=== PATIENT | male | born 1965 | race Caucasian/White ===

== ENCOUNTER → 2018-01-30 09:13 | Outpatient (CLI) | payer OTHER, SELFPAY ==
--- NOTE | 2018-01-30 09:17 | US_ITS ---
US gallbladder HISTORY: Abdominal pain, nausea vomiting and diarrhea ITS.REASON: abd pain ORDERING PHYSICIAN: Carlos Alberto Regalado MD PATIENT AGE: 52 years Comparison: None FINDINGS: PANCREAS: Unremarkable. No obvious mass or abnormal fluid collection. No ductal dilatation LIVER: No focal liver lesions demonstrated. Homogeneous echogenicity. No intrahepatic biliary ductal dilatation evident. Fatty liver RIGHT KIDNEY: Unremarkable. Normal size and echogenicity. No hydronephrosis GALLBLADDER: There are multiple gallstones. No gallbladder wall thickening, pericholecystic fluid, or biliary dilatation. IMPRESSION: 1. Cholelithiasis. 2. Fatty liver
== END ==
PROVIDERS: Family Provider Family Medicine; PCP Family Medicine; Visit Provider Surgery
DX: R10.11 Right upper quadrant pain (principal); K80.20 Calculus of gallbladder without cholecystitis without obstruction
CPT/HCPCS: 76705

== ENCOUNTER → 2018-02-14 11:15 | Outpatient (CLI) | payer OTHER, SELFPAY ==
[2018-02-14 11:26] LABS: Basophils % 0.5 % (0.1-2.0); Eosinophils # 0.2 K/mm3 (0.0-0.4); Eosinophils % 2.1 % (0.1-12.0); Hematocrit 48.4 % (42.0-52.0); Lymphocytes # 1.8 K/mm3 (0.7-4.5); Lymphocytes % 22.5 K/mm3 (10-50); Mean Corpuscular HGB Conc 33.1 g/dL (31.8-35.4); Mean Corpuscular Hemoglobin 29.5 pg (27.0-31.2); Mean Corpuscular Volume 89.3 fl (80-94); Mean Platelet Volume 7.6 fl (7.4-10.4); Monocytes # 0.5 K/mm3 (0.1-1.0); Monocytes % 6.3 % (1.7-9.3); Neutrophils # 5.5 K/mm3 (1.8-7.8); Neutrophils % 68.6 % (37.0-80.0); Platelet Count 208 K/mm3 (142-424); Red Blood Count 5.42 M/mm3 (4.60-6.20); Red Cell Distribution Width 13.2 % (11.5-17.5)
[2018-02-14 12:41] LABS: Alanine Aminotransferase 48 U/L (12-78); Albumin Level 4.4 gm/dL (3.4-5.0); Albumin/Globulin Ratio 1.3 (1.1-1.8); Alkaline Phosphatase 72 U/L (46-116); Anion Gap 13.2 mEq/L (5-15); Aspartate Amino Transferase 17 U/L (15-37); Bilirubin,Total 0.9 mg/dL (0.2-1.0); Blood Urea Nitrogen 20 mg/dL (7-18); Calcium 9.4 mg/dL (8.5-10.1); Carbon Dioxide 30 mmol/L (21.0-32.0); Chloride 106 mmol/L (98-107); Creatinine,Serum 0.81 mg/dL (0.70-1.30); Estimated Glomerular Filt Rate 100 ml/min (>60); GFR (African American) 121 ML/MIN (>60); Globulin 3.4 gm/dl (1.3-3.2); Glucose 130 mg/dL (74-106); Potassium 4.2 mmoL/L (3.5-5.1); Sodium 145 mmol/L (136-145); Total Protein,Serum 7.8 gm/dL (6.4-8.2)
== END ==
PROVIDERS: Family Provider Family Medicine; PCP Family Medicine; Visit Provider Surgery
DX: Z01.818 Encounter for other preprocedural examination (principal); K82.9 Disease of gallbladder, unspecified
CPT/HCPCS: 36415; 80053; 85025

== ENCOUNTER → 2018-03-27 12:52 | Outpatient (CLI) | payer OTHER, SELFPAY | PROVIDERS: PCP Family Medicine; Visit Provider Internal Medicine Cardiovascular Disease | DX: G47.33 Obstructive sleep apnea (adult) (pediatric) (principal); G47.9 Sleep disorder, unspecified; R40.0 Somnolence | CPT/HCPCS: 95806 ==

== ENCOUNTER → 2018-04-02 06:10 | Outpatient (CLI) | payer OTHER, SELFPAY ==
--- NOTE | 2018-04-02 06:12 | NM_ITS ---
History and Indications: Hypertension, diabetes, hyperlipidemia, family history, chest pain, shortness of breath and fatigue Procedure: Patient received a 0.4 mg of Lexiscan, resting heart rate was 74 bpm resting blood pressure 135/75, with Lexiscan maximum heart rate achieved was 1 28 bpm which is less than 85% of the maximum predicted heart rate and a blood pressure was 122/74. With Lexiscan patient complained of shortness of breath and nausea. Electrocardiogram: Resting electrocardiogram showed atrial flutter, with Lexiscan there is less than 1.[address] segment depression noted from the baseline EKG. The EKG portion of the Lexiscan Myoview is nondiagnostic. Cardiac stress and resting SPECT images: Cardiac stress and rest SPECT images were obtained using technetium 99 Myoview 32.6 mCi at stress and 10.4 mCi at rest, gated SPECT further analysis of segmental wall motion and calculation of the ejection fraction also done. Cardiac stress and rest SPECT images show a mild fixed defect involving the inferior and posterobasal wall with normal contractility in the gated SPECT is likely secondary to soft tissue attenuation, no reversible ischemia seen. Computer derived ejection fraction is 42% with no regional wall motion abnormality, however during this study patient was in atrial flutter which may underestimate the ejection fraction by gated SPECT. Conclusion: 1. The EKG portion of the Lexiscan Myoview is nondiagnostic. 2. No obvious scintigraphic evidence of reversible ischemia seen, computer derived ejection fraction is 42% with no regional wall motion abnormality, however during this study patient was in atrial flutter which may underestimate the ejection fraction by gated SPECT.
--- NOTE | 2018-04-02 06:12 | CA_ITS ---
PROCEDURE: 2-D M-mode and color Doppler study INDICATIONS FOR THE TEST: Chest pain + COPD Heart Murmur Tobacco Smoking Palpitations+ Fatigue+ Syncope Edema Hypertension+Diabetes Mellitus+ Rheumatic Fever SOB+CURRY Obesity Hyperlipidemia+ Family History HD Additional History a flutter, [place], abn ekg PATIENT INFORMATION HEIGHT: 79 WEIGHT:348 GENDER: Male B/P:130/83 2-D/M-MODE INTERPRETATION: 2-D MEASUREMENTS OBSERVED VALUES IN CMS Right Ventricular Dimension (RVDd) 2.3 Interventricular Septum (Thickness)(IVsd) 1.2 Left Ventricular Internal Dimensions(LVIDd) 4.6 Left Ventricular Posterior Wall (Thickness)(LVPWd) 1.0 Aortic Root 3.4 Aortic Cusp Separation 2.0 Left Atrial Dimensions (LAD) 4.4 2D 1. Technically very difficult study because of the patient's factor and poor acoustic windows, repeat study with Definity contrast is recommended. 2. The left atrium is mildly enlarged, left ventricle is normal size, there is mild concentric left ventricular hypertrophy, probably visually estimated ejection fraction of approximately 45%, there appears to be inferobasal and posterobasal wall hypokinesis, repeat study with Definity contrast is recommended. 3. The right atrium and right ventricle are relatively normal size and function. 4. The aortic valve is minimally thickened and fibrosed. 5. The mitral and tricuspid valve leaflets are minimally thickened. 6. No significant pericardial effusion noted. DOPPLER INTERROGATION: Doppler interrogation of the aortic, mitral and tricuspid valvular presence of mild mitral and tricuspid regurgitation, tricuspid regurgitation jet velocity insufficient for calculation of the right ventricular systolic pressure, diastolic parameters are inconclusive. CONCLUSION: 1. Technically very difficult study because of the patient's factor and poor acoustic windows repeat study with definitely contrast is recommended. 2. Normal left ventricular size, mild concentric left ventricular hypertrophy, visually estimated ejection fraction is probably 45% with segmental wall motion abnormality described above, repeat study with Definity contrast is recommended, diastolic parameters are inconclusive. 3. Mild mitral and tricuspid regurgitation 4. No significant pericardial effusion noted.
--- NOTE | 2018-04-02 07:14 | HMH.ITSHM ---
MONTELUKAST OMEPRAZOLE AMLODIPINE GLYXAMBI ELIQUIS LOSARTAN METFORMIN NABUMETONE WELCHOL ZINC BISOPROLOL SUPER B COMPLEX
== END ==
PROVIDERS: Family Provider Family Medicine; PCP Family Medicine; Visit Provider Internal Medicine Cardiovascular Disease
DX: R07.9 Chest pain, unspecified (principal); R06.09 Other forms of dyspnea; R00.2 Palpitations
CPT/HCPCS: 78452; 93017; 93306; A9502; J2785

== ENCOUNTER → 2018-05-05 19:32 | Outpatient (CLI) | payer OTHER, SELFPAY | PROVIDERS: PCP Family Medicine; Visit Provider Internal Medicine Cardiovascular Disease | DX: G47.33 Obstructive sleep apnea (adult) (pediatric) (principal); G47.10 Hypersomnia, unspecified; R06.83 Snoring; I10 Essential (primary) hypertension | CPT/HCPCS: 95810 ==

== ENCOUNTER → 2019-07-23 11:41 | Outpatient (CLI) | payer OTHER, SELFPAY ==
--- NOTE | 2019-07-23 11:48 | XR_ITS ---
PROCEDURE: XR CHEST 2V CLINICAL HISTORY: dyspnea COMPARISON: No exams were available for comparison FINDINGS: There is mild cardiomegaly without failure. There has been a prior median sternotomy with atrial appendage clipping. No lobar consolidation or collapse is evident. There is a small pleural effusion which may be on the right. No acute bony anomaly. IMPRESSION: Postsurgical changes with small right pleural effusion and mild cardiomegaly Dictated by: Sandip Lin MD 07/23/2019 12:09 Electronically signed by Sandip Lin MD in [place] 07/23/2019 12:09
== END ==
PROVIDERS: PCP Family Medicine; Visit Provider Nurse Practitioner Family
DX: R06.09 Other forms of dyspnea (principal); Z95.1 Presence of aortocoronary bypass graft
CPT/HCPCS: 71046

== ENCOUNTER → 2019-08-20 11:48 | Outpatient (CLI) | payer OTHER, SELFPAY ==
[2019-08-20 12:22] LABS: Basophils # 0.1 K/mm3 (0-0.2); Basophils % 0.7 % (0.1-2.0); Eosinophils # 0.4 K/mm3 (0.0-0.4); Eosinophils % 5.3 % (0.1-12.0); Hematocrit 45.2 % (42.0-52.0); Hemoglobin 14.6 g/dL (14.1-18.0); Lymphocytes # 1.6 K/mm3 (0.7-4.5); Lymphocytes % 22.5 % (10-50); Mean Corpuscular HGB Conc 32.3 g/dL (31.8-35.4); Mean Corpuscular Hemoglobin 28.3 pg (27.0-31.2); Mean Corpuscular Volume 87.7 fl (80-94); Mean Platelet Volume 8.2 fl (7.4-10.4); Monocytes # 0.5 K/mm3 (0.1-1.0); Monocytes % 6.6 % (1.7-9.3); Neutrophils # 4.5 K/mm3 (1.8-7.8); Neutrophils % 64.9 % (37.0-80.0); Platelet Count 312 K/mm3 (142-424); Red Blood Count 5.15 M/mm3 (4.60-6.20); Red Cell Distribution Width 13.1 % (11.5-17.5)
[2019-08-20 16:17] LABS: Alanine Aminotransferase 29 U/L (12-78); Albumin Level 3.9 gm/dL (3.4-5.0); Alkaline Phosphatase 86 U/L (46-116); Aspartate Amino Transferase 15 U/L (15-37); Bilirubin,Direct 0.2 mg/dL (0.0-0.2); Bilirubin,Indirect 0.8 mg/dL (0.0-0.9); Blood Urea Nitrogen 17 mg/dL (7-18); Carbon Dioxide 29 mmol/L (21.0-32.0); Chloride 102 mmol/L (98-107); Chol/HDL Ratio 4.9 (1-3.5); Cholesterol 162 mg/dL (140-200); Creatinine,Serum 0.85 mg/dL (0.70-1.30); Estimated Glomerular Filt Rate 94 ml/min (>60); GFR (African American) 114 ML/MIN (>60); Glucose 131 mg/dL (74-106); HDL Cholesterol 33 mg/dL (27-67); LDL Cholesterol 91 mg/dL (0-130); Sodium 143 mmol/L (136-145); Total Protein,Serum 7.2 gm/dL (6.4-8.2); Triglycerides 192 mg/dL (30-200); VLDL Cholesterol 38 mg/dL (0-40)
== END ==
PROVIDERS: Visit Provider Internal Medicine Cardiovascular Disease
DX: E11.9 Type 2 diabetes mellitus without complications (principal); E78.5 Hyperlipidemia, unspecified; I10 Essential (primary) hypertension; I25.10 Atherosclerotic heart disease of native coronary artery without angina pectoris; I48.91 Unspecified atrial fibrillation; R06.00 Dyspnea, unspecified; R60.9 Edema, unspecified; R94.31 Abnormal electrocardiogram [ECG] [EKG]; G47.33 Obstructive sleep apnea (adult) (pediatric); Z79.01 Long term (current) use of anticoagulants; Z95.1 Presence of aortocoronary bypass graft; Z98.890 Other specified postprocedural states; Z99.89 Dependence on other enabling machines and devices; Z79.84 Long term (current) use of oral hypoglycemic drugs
CPT/HCPCS: 36415; 80048; 80061; 80076; 85025

== ENCOUNTER → 2019-08-25 15:10 | Outpatient (CLI) | payer OTHER, SELFPAY ==
--- NOTE | 2019-08-25 15:12 | CA_ITS ---
APPROVED REPORT EXAM: Comprehensive 2D, Doppler, and color-flow Echocardiogram Training And Development Rep: Martine Tolbert RDCS Ht: 5 ft 7 in Wt: 331lbs BSA: 2.50 BP: 151/111 mmHg Indications: Atrial Flutter, Hyperlipidemia, Hypertension/HDD, CABG M-Mode Dimensions RVDd 3.22 cm (0.9-2.6) LVDd 5.96 cm (3.5-5.7) LVDs 4.87 cm (3.5-5.7) IVSd 0.81 cm (0.6-1.1) PWd 0.77 cm (0.6-1.1) EF (Teich) 37.30% FS 18.30% EDV (Teich) 177.30 mL ESV (Teich) 111.20 mL Left Ventricle Technically very difficult study, endocardial surfaces are very poorly visualized, repeat study with Definity contrast is recommended. Left atrium is mildly enlarged, left ventricle is normal size, mild concentric left ventricular hypertrophy, there is abnormal septal motion, visually estimated ejection fraction approximately 45 to 50% . This study is suboptimal for assessment of segmental wall motion. Diastolic parameters are inconclusive. Right Ventricle Right atrium and right ventricle mildly enlarged with normal contractility. Aortic Valve Aortic valve is minimally thickened and fibrosed, there is no aortic stenosis or aortic insufficiency. Mitral Valve Mitral valve is grossly normal, there is mild mitral regurgitation. Tricuspid Valve Tricuspid valve is grossly normal, there is mild tricuspid regurgitation. Pulmonic Valve Pulmonic valve is poorly visualized. Great Vessels Aortic root is normal size. Pericardium No significant pericardial effusion noted. Conclusion 1. Mildly enlarged left atrium, normal left ventricular size, mild concentric left ventricular hypertrophy, visually estimated ejection fraction 45 to 50%, there is abnormal septal motion, repeat study with Definity contrast is recommended. Diastolic parameters are inconclusive. 2. Mildly enlarged right ventricle with normal contractility. 3. Mild mitral and tricuspid regurgitation. 4. No significant pericardial effusion noted. Electronically signed by : Derrick Humphries, 08/26/2019 07:14:24
== END ==
PROVIDERS: PCP Family Medicine; Visit Provider Internal Medicine Cardiovascular Disease
DX: I48.91 Unspecified atrial fibrillation (principal); I10 Essential (primary) hypertension; E78.5 Hyperlipidemia, unspecified; I25.10 Atherosclerotic heart disease of native coronary artery without angina pectoris; R06.00 Dyspnea, unspecified; G47.33 Obstructive sleep apnea (adult) (pediatric); Z86.79 Personal history of other diseases of the circulatory system; Z95.1 Presence of aortocoronary bypass graft; Z98.890 Other specified postprocedural states; Z99.89 Dependence on other enabling machines and devices
CPT/HCPCS: 93306

== ENCOUNTER → 2019-08-27 10:45 | Outpatient (CLI) | payer OTHER, SELFPAY | PROVIDERS: PCP Family Medicine; Visit Provider Internal Medicine Cardiovascular Disease | DX: I48.0 Paroxysmal atrial fibrillation (principal); R00.2 Palpitations; R06.09 Other forms of dyspnea; E78.2 Mixed hyperlipidemia; E11.65 Type 2 diabetes mellitus with hyperglycemia; I10 Essential (primary) hypertension; Z99.89 Dependence on other enabling machines and devices | CPT/HCPCS: 93225 ==

== ENCOUNTER → 2019-09-11 15:45 | Outpatient (CLI) | payer OTHER, SELFPAY | PROVIDERS: Visit Provider Nurse Practitioner Family | DX: R19.7 Diarrhea, unspecified (principal) | CPT/HCPCS: 87045; 87177; 87493 ==

== ENCOUNTER → 2019-09-18 11:49 | Outpatient (CLI) | payer OTHER, SELFPAY ==
[2019-09-18 14:42] LABS: Alanine Aminotransferase 23 U/L (12-78); Albumin Level 4.6 g/dl (3.5-5.0); Albumin/Globulin Ratio 1.5 (1.1-1.8); Alkaline Phosphatase 88 U/L (38-126); Anion Gap 14.3 mEq/L (5-15); Aspartate Amino Transferase 25 U/L (17-59); Blood Urea Nitrogen 25 mg/dl (9-20); Calcium 9.9 mg/dl (8.4-10.2); Carbon Dioxide 29 mmol/L (22.0-30.0); Chloride 100 mmol/L (98-107); Chol/HDL Ratio 6.4 (1-3.5); Cholesterol 229 mg/dl (140-200); Estimated Glomerular Filt Rate 118 ml/min (>60); GFR (African American) 143 ML/MIN (>60); Globulin 3.1 g/dL (1.3-3.2); Glucose 131 mg/dl (74-100); HDL Cholesterol 36 mg/dl (40-60); Potassium 4.3 mmoL/L (3.5-5.1); Sodium 139 mmol/L (136-145); Total Protein,Serum 7.7 g/dl (6.3-8.2); Triglycerides 236 mg/dl (30-150); VLDL Cholesterol 47 mg/dL (0-40)
[2019-09-18 14:53] LABS: Direct LDL Cholesterol 183.54 mg/dL (100-129)
[2019-09-18 15:13] LABS: Thyroid Stimulating Hormone 0.67 uIU/mL (0.465-4.68)
[2019-09-19 11:34] LABS: Microalbumin, Urine 51.5 ug/mL (Not Estab.)
== END ==
PROVIDERS: PCP Family Medicine; Visit Provider Internal Medicine Cardiovascular Disease
DX: E78.2 Mixed hyperlipidemia (principal); E11.65 Type 2 diabetes mellitus with hyperglycemia; Z79.84 Long term (current) use of oral hypoglycemic drugs
CPT/HCPCS: 36415; 80053; 80061; 82043; 84443

== ENCOUNTER 2019-10-20 12:49 | Outpatient (RCR) | payer OTHER, SELFPAY | END 2020-01-04 13:34 | disposition home or self-care (01) | LOC: PT 12:49 | PROVIDERS: Visit Provider Internal Medicine Cardiovascular Disease | DX: I48.0 Paroxysmal atrial fibrillation (principal); I25.5 Ischemic cardiomyopathy; I25.10 Atherosclerotic heart disease of native coronary artery without angina pectoris; R06.09 Other forms of dyspnea; Z95.1 Presence of aortocoronary bypass graft; Z99.89 Dependence on other enabling machines and devices | CPT/HCPCS: 93798 ==

== ENCOUNTER → 2019-12-11 10:27 | Outpatient (CLI) | payer OTHER, SELFPAY ==
[2019-12-11 11:44] LABS: Chloride 102 mmol/L (98-107); Potassium 4.8 mmoL/L (3.5-5.1); Sodium 140 mmol/L (136-145)
[2019-12-11 11:46] LABS: Bilirubin,Unconjugated 0.7 mg/dL (0.0-1.1); Blood Urea Nitrogen 22 mg/dl (9-20); Estimated Glomerular Filt Rate 101 ml/min (>60); GFR (African American) 122 ML/MIN (>60)
[2019-12-11 11:47] LABS: Alanine Aminotransferase 26 U/L (12-78); Albumin Level 4.5 g/dl (3.5-5.0); Alkaline Phosphatase 91 U/L (38-126); Anion Gap 12.8 mEq/L (5-15); Aspartate Amino Transferase 26 U/L (17-59); Bilirubin,Direct 0.3 mg/dl (0.0-0.4); Bilirubin,Indirect 0.7 mg/dL (0.0-0.9); Calcium 9.6 mg/dl (8.4-10.2); Carbon Dioxide 30 mmol/L (22.0-30.0); Chol/HDL Ratio 3.4 (1-3.5); Cholesterol 123 mg/dl (140-200); Glucose 195 mg/dl (74-100); HDL Cholesterol 36 mg/dl (40-60); Total Protein,Serum 7.5 g/dl (6.3-8.2); Triglycerides 200 mg/dl (30-150); VLDL Cholesterol 40 mg/dL (0-40)
[2019-12-11 11:58] LABS: Direct LDL Cholesterol 82.61 mg/dL (100-129)
== END ==
PROVIDERS: Visit Provider Internal Medicine Cardiovascular Disease
DX: R07.89 Other chest pain (principal); R06.00 Dyspnea, unspecified; I42.9 Cardiomyopathy, unspecified; I25.10 Atherosclerotic heart disease of native coronary artery without angina pectoris; E11.9 Type 2 diabetes mellitus without complications; E78.5 Hyperlipidemia, unspecified; I10 Essential (primary) hypertension; I48.91 Unspecified atrial fibrillation; G47.33 Obstructive sleep apnea (adult) (pediatric); Z86.79 Personal history of other diseases of the circulatory system; Z95.1 Presence of aortocoronary bypass graft; Z98.890 Other specified postprocedural states; Z99.89 Dependence on other enabling machines and devices; Z79.84 Long term (current) use of oral hypoglycemic drugs
CPT/HCPCS: 36415; 80048; 80061; 80076

== ENCOUNTER → 2020-06-27 06:56 | Outpatient (CLI) | payer OTHER, SELFPAY ==
--- NOTE | 2020-06-27 | CA_ITS ---
APPROVED REPORT Exam: Pharmacologic Technologist: Crissy Allison Ht: 5 ft 9 in Wt: 349 lbs BSA: 2.62 m2 HR: 68 bpm BP: 147/71 mmHg Indications: Chest pain Medical History Medications: Omeprazole,,,,, Furosemide (LASIX),,,,, Aspirin,,,,, Metformin,,,,, Losartan,,,,, Nabumetone,,,,, Carvedilol,,,,, Montelukast,,,,, SpirOnolactone,,,,, Vitamin B Complex,,,,, Evolocumab,,,,, EMpagliflozin-Linagliptin,,,,, Stress Test Details Test: LEXISCAN HR Resting HR: 83 bpm Max Heart Rate (APMHR): 166 bpm Max HR Achieved: 98 bpm Target HR (85% APMHR): 141 bpm % of APMHR: 59 Recovery HR: 81 bpm BP Resting BP: 147.0/71.0 mmHg Max BP: 157.0/58.0 mmHg Recovery BP: 143.0/74.0 mmHg ECG Clinical Reason for Termination: Completed Protocol Exercise duration: 04:00 min Highest Stage Achieved: Stress ECG Conclusion Resting EKG: Normal sinus rhythm Symptoms: None Arrhythmias/Ectopy: None ST-T Changes: < 1.[address] segment changes Conclusion: Non-daignostic stress test. Patient received the infusion per protocol without chest pain, ST segment changes or arrhythmias. See the nuclear report for further information. Electronically signed by : Derrick Humphries, 06/28/2020 06:20:20
--- NOTE | 2020-06-27 06:57 | NM_ITS ---
APPROVED REPORT Exam: Nuclear Stress Test Indication: Chest pain, SOB, Fatigue, HTN, CAD, CABG, DM, High cholesterol, Family history Patient Location: Outpatient Stress Tech: Crissy Allison ND Tech:Lianne Agrawal, ARRT, RT (R)(N) Ht: 6 ft 7 in Wt: 340 lbs HR: 68 bpm BP: 147/71 mmHg BSA: 2.86 m2 BMI: 38.2 History: Chest pain, SOB, Fatigue, HTN, CAD, CABG, DM, High cholesterol, Family history Procedure: Patient received a 0.4 mg of intravenous Lexiscan, resting heart rate 68 bpm, resting blood pressure 147/71 mmHg, with Lexiscan maximum heart rate achived was 82 bpm which is Less than 85 % of the maximum predicted heart rate and blood pressure was 138/70 mmHg. With Lexiscan, patient denied any complaint of chest pain. Electrocardiogram Resting electrocardiogram showed sinus rhythm nonspecific ST-T changes, with Lexiscan there is less than 1.[address] segment depression noted from the baseline EKG. The EKG portion of the Lexiscan Myoview is nondiagnostic. Cardiac Stress and Resting SPECT Images: Cardiac Stress and Resting SPECT images were obtained using technetium 99m Myoview 30.0 mCi stress and 10.51 mCi at rest. Gated SPECT for analysis of segmental wall motion and calculation of the ejection fraction also done. Cardiac stress and resting SPECT images show uniform myocardial activity without segmental perfusion abnormality, computer derived ejection fraction 50% with no regional wall motion abnormality, right ventricle is normal size and contractility. Conclusion: 1. The EKG portion of the Lexiscan is nondiagnostic. 2. No scintigraphic evidence of reversible ischemia seen, computer derived ejection fraction 50% with no regional wall motion abnormality, right ventricle is normal size and contractility. 3. Normal Lexiscan Myoview study. Electronically signed by : Derrick Humphries, 06/28/2020 06:33:20
--- NOTE | 2020-06-27 09:38 | HMH.ITSHM ---
Current Home Medications as stated by this patient Massimo Garces or product support representative. []MONTELUKAST OMEPRAZOLE METFORMIN SPRIONOLACTONE NABUMETONE FUROSEMIDE VITAMIN B GLYXAMBI LOSARTAN CARVEDILOL
== END ==
PROVIDERS: PCP Family Medicine; Visit Provider Urology
DX: R07.89 Other chest pain (principal); I25.10 Atherosclerotic heart disease of native coronary artery without angina pectoris; I10 Essential (primary) hypertension; E11.9 Type 2 diabetes mellitus without complications; E78.2 Mixed hyperlipidemia; G47.33 Obstructive sleep apnea (adult) (pediatric); I25.5 Ischemic cardiomyopathy; I48.0 Paroxysmal atrial fibrillation; R06.09 Other forms of dyspnea; Z86.79 Personal history of other diseases of the circulatory system; Z95.1 Presence of aortocoronary bypass graft; Z98.890 Other specified postprocedural states; Z99.89 Dependence on other enabling machines and devices
CPT/HCPCS: 78452; 93017; A9502; J2785

== ENCOUNTER → 2020-12-15 11:28 | Outpatient (CLI) | payer OTHER, SELFPAY | PROVIDERS: PCP Family Medicine; Visit Provider Physician Assistant | DX: R55 Syncope and collapse (principal); I48.0 Paroxysmal atrial fibrillation; R00.0 Tachycardia, unspecified | CPT/HCPCS: 93270 ==

== ENCOUNTER → 2020-12-29 10:02 | Outpatient (CLI) | payer OTHER, SELFPAY ==
[2020-12-29 10:38] LABS: Basophils % 0.5 % (0.1-2.0); Eosinophils # 0.2 K/mm3 (0.0-0.4); Eosinophils % 2.3 % (0.1-12.0); Hematocrit 46.2 % (42.0-52.0); Hemoglobin 15.3 g/dL (14.1-18.0); Lymphocytes # 1.6 K/mm3 (0.7-4.5); Lymphocytes % 21.2 % (10-50); Mean Corpuscular HGB Conc 33.1 g/dL (31.8-35.4); Mean Corpuscular Hemoglobin 27.9 pg (27.0-31.2); Mean Corpuscular Volume 84.3 fl (80-94); Mean Platelet Volume 8.5 fl (7.4-10.4); Monocytes # 0.5 K/mm3 (0.1-1.0); Monocytes % 6.6 % (1.7-9.3); Neutrophils # 5.1 K/mm3 (1.8-7.8); Neutrophils % 69.4 % (37.0-80.0); Platelet Count 239 K/mm3 (142-424); Red Blood Count 5.48 M/mm3 (4.60-6.20); Red Cell Distribution Width 14.1 % (11.5-17.5); White Blood Count 7.4 K/mm3 (4.8-10.8)
[2020-12-29 10:56] LABS: Chloride 104 mmol/L (98-107); Potassium 4.6 mmoL/L (3.5-5.1); Sodium 140 mmol/L (136-145)
[2020-12-29 10:59] LABS: Anion Gap 14.6 mEq/L (5-15); Blood Urea Nitrogen 16 mg/dl (9-20); Carbon Dioxide 26 mmol/L (22.0-30.0); Estimated Glomerular Filt Rate 117 ml/min (>60); GFR (African American) 142 ML/MIN (>60)
[2020-12-29 11:00] LABS: Calcium 9.3 mg/dl (8.4-10.2); Glucose 152 mg/dl (74-100)
== END ==
PROVIDERS: Visit Provider Physician Assistant
DX: Z01.812 Encounter for preprocedural laboratory examination (principal); Z20.822 Contact with and (suspected) exposure to COVID-19; R55 Syncope and collapse; Z95.1 Presence of aortocoronary bypass graft
CPT/HCPCS: 36415; 80048; 85025; U0003

== ENCOUNTER 2020-12-30 07:16 | Day surgery (SDC) | payer OTHER, SELFPAY ==
[2020-12-30] VITALS (17 sets, daily range): BP systolic 128–162; BP diastolic 72–93; PULSE 58–74; RESP 16–20; O2SAT 93–99; BMI 38.2
--- NOTE | 2020-12-30 07:01 | IR_ITS ---
APPROVED REPORT Patient Location: Outpatient Neon Sign Worker: OLU Boswell RT (R) PROCEDURES Left heart catheterization Left ventriculogram Selective coronary angiogram Selective engagement of left internal mammary artery with angiography Selective engagement of the right internal mammary artery with angiography Catheter placed in the ascending aorta Ascending aortography INDICATION Coronary disease, History of coronary bypass surgery, Accelerated angina pectoris, Informed consent was obtained prior to the procedure. COMPLICATIONS None Estimated Blood Loss: Less than 10 mls TECHNIQUE One percent lidocaine used to anesthetize the right groin. The right femoral artery was accessed via the Seldinger technique and a 5 Maori sheath was placed in the right femoral artery. A JL 4, JR4 multipurpose catheter were used to perform left heart catheterization, left ventriculogram selective coronary angiography as well as selective engagement of the bilateral internal mammary arteries. The catheter was then placed in the ascending aorta and contrast was injected to determine if any vein grafts originated from the ascending aorta.. At the end the procedure the patient was transferred to postop coronary stable addition for sheath removal ANGIOGRAPHIC RESULTS The left main artery Is widely patent and distally tapers to 30% stenosis The left anterior descending artery Has an ostial severe stenosis and then proximally occluded after a small first diagonal artery network The circumflex artery Is a dominant vessel and gives rise to a large ramus intermedius which has an ostial 30% stenosis. The circumflex artery itself has an ostial 30% to 40% stenosis with remaining vessel widely patent The right coronary artery Small nondominant subtotally occluded The [place] ventriculogram reveals Dilated ventricle with ejection fraction of 50% The left ventricular end-diastolic pressure 15 mmHg The left internal mammary artery is widely patent to the LAD The right internal mammary artery is widely patent to the chest wall The ascending aorta does not demonstrate any saphenous vein graft sites IMPRESSION Coronary disease as described above Widely patent POLO to the LAD Dilated ventricle with ejection fraction 50% Mildly elevated LVEDP PLAN 1. Continue medical management 2. Maximize antianginal medications 3. The distal left main artery has trifurcating vessels which includes the LAD the circumflex artery and the ramus intermedius. There is significant size mismatch between the [place] left main artery and the 2.5 mm nature of both the ramus and the circumflex artery. Stenting the ostial ramus and circumflex artery would create significant mismatch within the left main artery. Although the LAD is subtotally occluded there still is significant mismatch based on the anatomical orientation of the 3 vessels which would make double barreling of the ramus intermedius and the circumflex artery very difficult as the stents would not match the [place] left main artery. I strongly recommend medical management in this gentleman 4. Evaluation of noncardiac symptomatology such as possible pulmonary embolism or possible GI etiologies 5. Aggressive risk factor modification Electronically signed by : Roni Wood, 12/30/2020 10:27:50
--- NOTE | 2020-12-30 07:19 | CA_ITS ---
APPROVED REPORT Hospital Nurse: PHILIPPE Laterality: Bilateral Indications: syncope, dizziness Risk Factors Hypertension: Hyperlipidemia Diabetes CAD, Hx CABG, AFIB Doppler Spectral Velocity Analysis ECA (R) 100.30/11.20 cm/s ECA (L) 133.70/18.00 cm/s dICA (R) 59.10/18.00 cm/s dICA (L) 89.10/33.40 cm/s Yudy (R) 86.50/22.30 cm/s Yudy (L) 87.40/29.10 cm/s pICA (R) 126.20/33.10 cm/s pICA (L) 114.80/33.40 cm/s dCCA (R) 104.80/23.20 cm/s dCCA (L) 110.50/24.00 cm/s pCCA (R) 112.20/23.10 cm/s pCCA (L) 149.90/25.70 cm/s Vert (R) 45.60/8.30 cm/s Vert (L) 61.70/20.60 cm/s ICA/CCA 1.20 ICA/CCA 1.04 Findings Duplex evaluation demonstrates stenosis of the left proximal internal carotid artery <20% with PSV <140 cm/sec, EDV <100 cm/sec, and IC/CC Ratio <4.0. Duplex evaluation demonstrates stenosis of the right proximal internal carotid artery in the range of 20-49% with PSV <140 cm/sec, EDV <100 cm/sec, and IC/CC Ratio <4.0. Conclusion Duplex evaluation demonstrates stenosis of the left proximal internal carotid artery <20% with PSV <140 cm/sec, EDV <100 cm/sec, and IC/CC Ratio <4.0. Duplex evaluation demonstrates stenosis of the right proximal internal carotid artery in the range of 20-49% with PSV <140 cm/sec, EDV <100 cm/sec, and IC/CC Ratio <4.0. Electronically signed by : Sandip Lin MD 12/30/2020 15:06:21
== END 2020-12-30 13:32 | disposition home or self-care (01) ==
LOC: CATHLAB 07:16
PROVIDERS: PCP Family Medicine; Visit Provider Internal Medicine
DX: I48.0 Paroxysmal atrial fibrillation (principal); E11.65 Type 2 diabetes mellitus with hyperglycemia; R55 Syncope and collapse; Z95.1 Presence of aortocoronary bypass graft; R42 Dizziness and giddiness; Z79.84 Long term (current) use of oral hypoglycemic drugs; I25.118 Atherosclerotic heart disease of native coronary artery with other forms of angina pectoris; Z88.0 Allergy status to penicillin; Z88.8 Allergy status to other drugs, medicaments and biological substances; Z79.899 Other long term (current) drug therapy; I10 Essential (primary) hypertension; K21.9 Gastro-esophageal reflux disease without esophagitis; E78.5 Hyperlipidemia, unspecified
CPT/HCPCS: 93459; 93880; 99152; C1725; C1769; C1894; J1644; Q9967

== ENCOUNTER 2021-01-30 10:29 | Emergency (ER) | payer OTHER, SELFPAY ==
--- NOTE | 2021-01-30 10:26 | ECG_ITS ---
APPROVED REPORT Exam: Resting ECG HR:61 bpm ECG Measurements Heart Rate 61 AXES WV 176 P 75 QRSd 102 QRS 26 QT 418 T 48 QTc 420 Conclusion Normal sinus rhythm Normal ECG Electronically signed by : Zack Rees, 02/01/2021 21:41:53
[2021-01-30 10:30] VITALS: BP 167/85; PULSE 67; RESP 16; TEMP 36.7; O2SAT 97; BMI 38.8
--- NOTE | 2021-01-30 10:35 | HMH.EDCP ---
ED Disposition Clinical Impression: Atypical chest pain, Hyperglycemia due to diabetes mellitus Chest wall contusion Qualifiers: Encounter type: initial encounter Laterality: left Qualified Code(s): S20.212A - Contusion of left front wall of thorax, initial encounter Chest pain Qualifiers: Chest pain type: unspecified Qualified Code(s): R07.9 - Chest pain, unspecified Disposition: Home, Self-Care Condition on Discharge: Good Instructions: DI for Atypical Chest Pain Additional Instructions: Please follow-up with your assisted living director within 1 week. Return to the emergency department if your symptoms worsen. Follow-up with your primary care physician within the next 2 weeks. Your blood glucose was somewhat elevated today. However, it was not high enough to require emergent lowering in the emergency department. Referrals: Lela Sánchez MD [Primary Care Provider] - - Critical Care Critical Care Time: No Attestation: On , the high probability of a clinically significant, sudden or life threatening deterioration of the following system(s) required my full and direct attention, intervention and personal management. The time I documented below is in addition to time spent performing reported procedures but includes the following listed in this critical care notation. Medical Decision Making - Medical Records Medical records reviewed: Yes: I reviewed the patient's medical records. - Bernardo Inquiry Pt receiving controlled substance: No Vital Signs: 01/30/21 10:30 01/30/21 11:19 01/30/21 11:31 Temperature 98.1 F Temperature Source Oral Pulse Rate 57 L 56 L Pulse Rate [Right] 67 Respiratory Rate 16 11 L Blood Pressure 114/61 131/69 Blood Pressure [Right Arm] 167/85 H Blood Pressure Mean 89 Blood Pressure Mean [Right Arm] 112 02 Sat by Pulse Oximetry 97 95 94 L - Lab Data Lab results reviewed: Yes: I reviewed the patient's lab results. Lab Results 01/30/21 10:38: WBC 7.0, RBC 5.44, Hgb 15.2, Hct 44.9, MCV 82.5, MCH 27.8, MCHC 33.8, RDW 14.4, Plt Count 204, MPV 8.0, Neut % (Auto) 67.9, Lymph % (Auto) 21.9, Citrus % (Auto) 6.3, Eos % (Auto) 2.9, Baso % (Auto) 0.9, Neut # (Auto) 4.7, Lymph # (Auto) 1.5, Citrus # (Auto) 0.4, Eos # (Auto) 0.2, Baso # (Auto) 0.1 01/30/21 10:38: Sodium 138, Potassium 4.4, Chloride 102, Carbon Dioxide 27, Anion Gap 13.4, BUN 19, Creatinine 0.60 L, Estimated Creat Clear 308 H, Estimated GFR 140, Est GFR ( Amer) 169, Glucose 272 H, Calcium 8.8, Troponin I < 0.01 Result diagrams: 01/30/21 10:38 01/30/21 10:38 Orders (Tests/Meds): ORDERS Category Date Time Status Troponin I Q3H Lab 01/30/21 13:45 Ordered Troponin I Q3H Lab 01/30/21 16:45 Ordered - Radiology Data #1 Image(s): Chest Image Reviewed: Yes I reviewed the patient's radiology results, Yes I reviewed the patient's radiology image, Yes I have reviewed radiologist's interpretation Preliminary Findings: Normal/NAD - ECG Data Tracing #1 I reviewed this ECG and interpreted as documented below: 1:27 AM on January 30. it shows a normal sinus rhythm with a ventricular rate of 61 bpm, normal axis, normal intervals, no evidence of acute ischemia. Normal Sinus Rhythm: Yes Medical Decision Narrative: The patient presents to the emergency department complaining of left-sided chest pain that has been ongoing for approximately 1 week. It has been constant and waxing and waning. The patient does have a history of coronary artery disease and has had coronary artery bypass graft in the past. The patient's work-up in the emergency department did not reveal any life-threatening or dangerous causes for the patient's chest pain. His troponin is undetectable. His EKG does not show any acute ischemic changes. His chest x-ray is unremarkable. The pain is reproducible with palpation and tensing of the left chest wall muscles. I feel that the patient can be safely discharged home with instructions to follow-
--- NOTE | 2021-01-30 10:38 | XR_ITS ---
PROCEDURE: XR CHEST PORTABLE CLINICAL HISTORY: CHEST PAIN/ SOA COMPARISON: CR CXR CHEST(2 VIEWS-NOT PORTABLE) from 04/23/2016 CR CXR2V XR chest 2V from 10/04/[address] angio chest from 10/04/2018 DX XR CHEST 2V from 07/23/2019 FINDINGS: There has been a prior CABG. There is borderline cardiomegaly without failure. Prior left atrial appendage clipping. There is lordotic positioning. No lobar consolidation or collapse is evident. No acute bony abnormalities. IMPRESSION: No acute findings. Dictated by: Sandip Lin MD 01/30/2021 11:34 Sandip Lin MD in [place] 01/30/2021 11:34
[2021-01-30 10:52] LABS: Basophils # 0.1 K/mm3 (0-0.2); Basophils % 0.9 % (0.1-2.0); Eosinophils # 0.2 K/mm3 (0.0-0.4); Eosinophils % 2.9 % (0.1-12.0); Hematocrit 44.9 % (42.0-52.0); Hemoglobin 15.2 g/dL (14.1-18.0); Lymphocytes # 1.5 K/mm3 (0.7-4.5); Lymphocytes % 21.9 % (10-50); Mean Corpuscular HGB Conc 33.8 g/dL (31.8-35.4); Mean Corpuscular Hemoglobin 27.8 pg (27.0-31.2); Mean Corpuscular Volume 82.5 fl (80-94); Monocytes # 0.4 K/mm3 (0.1-1.0); Monocytes % 6.3 % (1.7-9.3); Neutrophils # 4.7 K/mm3 (1.8-7.8); Neutrophils % 67.9 % (37.0-80.0); Platelet Count 204 K/mm3 (142-424); Red Blood Count 5.44 M/mm3 (4.60-6.20); Red Cell Distribution Width 14.4 % (11.5-17.5)
[2021-01-30 10:57] LABS: Anion Gap 13.4 mEq/L (5-15); Blood Urea Nitrogen 19 mg/dl (9-20); Calcium 8.8 mg/dl (8.4-10.2); Carbon Dioxide 27 mmol/L (22.0-30.0); Chloride 102 mmol/L (98-107); Creatinine Clearance Estimated 308 mL/min (50-200); Estimated Glomerular Filt Rate 140 ml/min (>60); GFR (African American) 169 ML/MIN (>60); Glucose 272 mg/dl (74-100); Potassium 4.4 mmoL/L (3.5-5.1); Sodium 138 mmol/L (136-145)
[2021-01-30 11:09] LABS: Troponin I < 0.01 ng/ml (0.00-0.034)
[2021-01-30 11:19] VITALS: BP 114/61; PULSE 57; RESP 11; O2SAT 95
[2021-01-30 11:31] VITALS: BP 131/69; PULSE 56; O2SAT 94
[2021-01-30 12:00] VITALS: BP 125/67; PULSE 61; RESP 18; TEMP 36.8; O2SAT 97
== END 2021-01-30 12:22 | disposition home or self-care (01) ==
PROVIDERS: Emergency Provider Emergency Medicine; PCP Family Medicine
DX: S20.212A Contusion of left front wall of thorax, initial encounter (principal); E11.65 Type 2 diabetes mellitus with hyperglycemia; I25.10 Atherosclerotic heart disease of native coronary artery without angina pectoris; W22.01XA Walked into wall, initial encounter; Y92.019 Unspecified place in single-family (private) house as the place of occurrence of the external cause; R07.89 Other chest pain; K21.9 Gastro-esophageal reflux disease without esophagitis; E78.5 Hyperlipidemia, unspecified; I10 Essential (primary) hypertension; Z87.442 Personal history of urinary calculi; Z87.891 Personal history of nicotine dependence; Z79.899 Other long term (current) drug therapy
CPT/HCPCS: 71045; 80048; 84484; 85025; 93005; 99202; 99283; G0463

== ENCOUNTER → 2021-03-22 09:59 | Outpatient (CLI) | payer OTHER, SELFPAY ==
[2021-03-22 18:15] LABS: Adenovirus F 40/41, stool Not Detected (NotDetected); Astrovirus Not Detected (NotDetected); Campylobacter Not Detected (NotDetected); Clostridium Difficile A/B, PCR Not Detected (NotDetected); Cryptosporidium Not Detected (NotDetected); Cyclospora Cayetanesis Not Detected (NotDetected); Entamoeba histolytica Not Detected (NotDetected); Enteroaggregative E coli Not Detected (NotDetected); Enteropathogenic E coli Not Detected (NotDetected); Enterotoxigenic E coli Not Detected (NotDetected); Giardia lamblia Not Detected (NotDetected); Norovirus Not Detected (NotDetected); Plesimonas Shigalloides, PCR Not Detected (NotDetected); Rotavirus A Not Detected (NotDetected); Salmonella, PCR Not Detected (NotDetected); Sapovirus Not Detected (NotDetected); Shiga-like toxin E coli Not Detected (NotDetected); Shigella Enterovasive E coli Not Detected (NotDetected); Vibrio Cholerae Not Detected (NotDetected); Vibrio, PCR Not Detected (NotDetected); Yersinia Entercolitica, PCR Not Detected (NotDetected)
== END ==
PROVIDERS: Visit Provider Internal Medicine Gastroenterology
DX: Z01.812 Encounter for preprocedural laboratory examination (principal); Z11.52 Encounter for screening for COVID-19; Z13.810 Encounter for screening for upper gastrointestinal disorder
CPT/HCPCS: 87507; U0003

== ENCOUNTER 2021-03-24 08:49 | Day surgery (SDC) | payer OTHER, SELFPAY ==
[2021-03-21 12:43] VITALS: BMI 37.7
[2021-03-24 09:34] VITALS: BP 122/65; PULSE 59; RESP 18; TEMP 36.5; O2SAT 97
--- NOTE | 2021-03-24 09:38 | P.PN_ITS ---
[facility] Anesthesia Checklist - Patient Identification Patient Identification: Arm Band - Structural Data Admitted From: Home Planned Operative Procedure/s: EGD Consent for Planned Operative Procedure(s) Verified: Yes - NPO Status Verified Time NPO: 00:00 - Additional verifications Anesthesia Reactions: Yes (delayed awakening) Hx Blood Transfusions: No Blood Transfusion Reaction: No - Airway Assessment C-Spine Mobility Assessed: Yes TMJ Mobility Assessed: Yes Dentition: Good Dentition - Neurological Assessment Level of Consciousness: Awake Hx Seizures: No Numbness or tingling in extremities: No - Anesthesia Plan Anesthesia Risk discussed: Yes Anesthesia Plan: Verified ASA Class: III Anesthesia Type: MAC [facility] History I have reviewed the patient's past medical history: Yes Medical History: Reports:: Atherosclerotic Heart Disease, Atrial Fibrillation, Coronary Artery Disease, Diabetes Mellitus Type 2, Gastroesophageal Reflux Disease(GERD), Hyperlipidemia, Hypertension, Kidney Stones, Palpitations Denies:: Cancer, Diabetes Mellitus Type 1, Internal Pacemaker, MRSA, Seizures *Have you ever received a pneumonia vaccine?: Yes *Have you received a flu vaccine this season?: Yes Other Medical History: Reports: Other. Denies: Blood Transfusion Reaction Anesthesia experience/problems:: None Laterality Cases: Right: Other, Bilateral: Arthroscopy Shoulder, Myringotomy (Ear Tubes) Other Surgeries: Yes: CABG, Cardiac Catheterization, Cardiac Surgery, Cholecystectomy, Colonoscopy, Coronary Stent (x2 in heart ), EGD, Sinus Surgery, Other. No: Pacemaker Amputation: No Fractures: No - *Social History Last grade of school completed: 9th or 10th Smoking Status: Never smoker Tobacco Type: cigarettes # Packs/Day (cigarettes): 1 #Yrs smoked (if former smoker): 10 Alcohol Intake: never Alcohol Intake Frequency:: other Substance Use Type: denies use *Occupational Status:: disabled Housing: house Household Members: family *Travel in the last 8 weeks: None Family Hx:: Cancer, Diabetes, Hypertension, Coronary Artery Disease
[2021-03-24 09:53] LABS: POC Glucose,Bedside 260 (70-110)
--- NOTE | 2021-03-24 10:28 | HMH.PROC ---
[facility] Procedure Note Procedure Note:: Upper Endoscopy Procedure Report: Esophagogastroduodenoscopy with cold biopsies and TTS balloon dilation Endoscopost: Sarkis Alberto II, MD Referring Physician: Umu Sánchez M.D./Derrick Humphries MD Date of Procedure: March 24, 2021 Equipment: Olympus GIF 190 standard upper endoscope Sedation: MAC sedation Indications: Mr. Garces is a 55-year-old gentleman with atypical noncardiac chest pain. The patient did have coronary stent placements. He later had cardiac ablation and then CABG (Dr. Reinier [facility]). He reports this is left precordial chest pain and usually occurs when he gets hot. He states that he has never had a myocardial infarction so he does not know what angina feels like. He recently had cardiac evaluation and his stress testing was normal. He did have a normal colonoscopy with Dr. Kieran May 5 years ago. The patient does have some chronic GERD which is well controlled with omeprazole. He does get some intermittent dyspepsia, bloating, belching and nausea. He reports no early satiety. He does have occasional dysphagia. He was having chronic diarrhea over the last couple of years. Metformin was discontinued and his diarrhea rapidly resolved. Procedure: Prior to the procedure, a history and physical exam was performed, and patient's medications and allergies were reviewed. The risks, benefits and alternatives of the sedation and procedure were discussed with the patient. All questions were answered and informed consent was obtained. The patient was brought to the procedure room. Patient identification and proposed procedure were verified by the physician and the nurse. The patient was placed in a left lateral decubitus position and the scope was passed under direct vision. Throughout the procedure, the patient's blood pressure, pulse, and oxygen saturations were monitored continuously. The upper GI endoscopy was accomplished without difficulty. The patient tolerated the procedure well. Findings: The scope was passed directly into the upper esophagus and advanced to the third portion of the duodenum. The post bulbar duodenum and duodenal bulb were normal with normal mucosa and conniventes. The scope was withdrawn through a normal duodenal bulb and pylorus into the stomach. There was marked bile reflux with moderate linear reactive gastropathy of the antrum and body of the stomach (erosive gastropathy). The remainder of the fundus of the stomach was grossly normal. Upon retroflexion there was no hiatal hernia. 2 biopsies were taken in the antrum and along the lesser curvature for histology to rule out gastritis and/or H pylori. The scope was then withdrawn into the esophagus. There was a serrated Z-line. There was no evidence of reflux esophagitis. Biopsies were taken at the GE junction. There were tertiary contractions and evidence of moderate esophageal dysmotility. The entire esophagus was dilated to 60 Gibralt[place]/20 mm with a TTS hydrostatic balloon. The remainder of the esophageal mucosa was normal. Impression: 1. Moderate esophageal dysmotility with nonerosive GERD 2. Bile reflux with moderate linear reactive gastropathy Plan: Certainly there is a possibility that his chest pain is esophageal chest pain from esophageal dyskinesia and functional GERD. We will discuss treatment options. I will follow-up the biopsies.
[2021-03-24 10:30] VITALS: BP 163/88; PULSE 62; RESP 18; TEMP 36.1; O2SAT 94
[2021-03-24 10:40] VITALS: BP 138/87; PULSE 56; RESP 18; O2SAT 98
[2021-03-24 10:50] VITALS: BP 130/72; PULSE 57; RESP 18; O2SAT 98
[2021-03-24 11:15] VITALS: BP 139/86; PULSE 54; RESP 18; O2SAT 96
[2021-03-24 12:21] VITALS: O2SAT 97
== END 2021-03-24 11:18 | disposition home or self-care (01) ==
LOC: OUTP 08:50
PROVIDERS: PCP Family Medicine; Visit Provider Internal Medicine Gastroenterology
PROC: 0DJ08ZZ Inspection of Upper Intestinal Tract, Via Natural or Artificial Opening Endoscopic (ICD-10-PCS; CPT 43235; principal; 2021-03-24 10:00)
DX: Z95.1 Presence of aortocoronary bypass graft (principal); K21.9 Gastro-esophageal reflux disease without esophagitis; K22.4 Dyskinesia of esophagus; K31.9 Disease of stomach and duodenum, unspecified; I25.10 Atherosclerotic heart disease of native coronary artery without angina pectoris; I48.91 Unspecified atrial fibrillation; E11.9 Type 2 diabetes mellitus without complications; E78.5 Hyperlipidemia, unspecified; I10 Essential (primary) hypertension; R00.2 Palpitations; Z87.442 Personal history of urinary calculi; Z80.9 Family history of malignant neoplasm, unspecified
CPT/HCPCS: 43239; 43249; 82962; C1726; J2704

== ENCOUNTER → 2021-06-06 08:58 | Outpatient (CLI) | payer OTHER, SELFPAY | PROVIDERS: PCP Family Medicine; Visit Provider Nurse Practitioner | DX: Z20.822 Contact with and (suspected) exposure to COVID-19 (principal) | CPT/HCPCS: C9803; U0003; U0005 ==

== ENCOUNTER 2021-07-11 17:33 | Emergency (ER) | payer OTHER, SELFPAY ==
[2021-07-11 17:35] VITALS: BP 142/100; PULSE 96; RESP 16; TEMP 37.2; O2SAT 97; BMI 38.7
[2021-07-11 17:59] VITALS: BP 148/90; PULSE 80; RESP 18; O2SAT 98
--- NOTE | 2021-07-11 18:00 | CT_ITS ---
PROCEDURE INFORMATION: Exam: CT Abdomen And Pelvis With Contrast Exam date and time: 07/11/2021 6:00 PM Age: 55 years old Clinical indication: Nausea and vomiting; Additional info: N/v abd pain TECHNIQUE: Imaging protocol: Computed tomography of the abdomen and pelvis with contrast. Radiation optimization: All CT scans at this facility use at least one of these dose optimization techniques: automated exposure control; mA and/or kV adjustment per patient size (includes targeted exams where dose is matched to clinical indication); or iterative reconstruction. Contrast material: ISOVUE; Contrast volume: 75 ml; Contrast route: IV; COMPARISON: ABDPELWO CT abdomen pelvis wo con 01/16/2018 8:39 PM FINDINGS: Liver: Normal. No mass. Gallbladder and bile ducts: Cholecystectomy. Pancreas: Normal. No ductal dilation. Spleen: Normal. No splenomegaly. Adrenal glands: 1 cm left adrenal adenoma unchanged from previous exam in 2018. Kidneys and ureters: Normal. No hydronephrosis. Stomach and bowel: Unremarkable. No obstruction. No mucosal thickening. Appendix: No evidence of appendicitis. Intraperitoneal space: Unremarkable. No free air. No significant fluid collection. Vasculature: Unremarkable. No abdominal aortic aneurysm. Lymph nodes: Unremarkable. No enlarged lymph nodes. Urinary bladder: Unremarkable as visualized. Reproductive: Unremarkable as visualized. Bones/joints: Unremarkable. No acute fracture. Soft tissues: Unremarkable. IMPRESSION: No acute findings.
[2021-07-11 18:11] LABS: Coronavirus 19, PCR Not Detected (NotDetected); Influenza A, PCR Not Detected (NotDetected); Influenza B, PCR Not Detected (NotDetected)
--- NOTE | 2021-07-11 18:16 | HMH.EDGENADL ---
ED Disposition Clinical Impression: Dizziness, Generalized weakness Vomiting Qualifiers: Vomiting type: unspecified Nausea presence: with nausea Qualified Code(s): R11.2 - Nausea with vomiting, unspecified Abdominal pain Qualifiers: Abdominal location: generalized Qualified Code(s): R10.84 - Generalized abdominal pain Disposition: Home, Self-Care Condition on Discharge: Good Instructions: DI for Acute Abdominal Pain, DI for Vomiting -- Adult, DI for Dizziness-Nonvertigo Additional Instructions: Antivert as needed for dizziness. Zofran as needed for nausea and vomiting. Rest and drink plenty of fluids. Call your primary care provider tomorrow for follow-up. Return to the emergency department if worsening. Prescriptions: Meclizine HCl [Antivert 25mg tablet] 25 mg PO TIDP PRN #15 tab PRN Reason: Vertigo Transmission Status: Pending to [facility] Ondansetron [Zofran 4mg ODT] 4 mg PO TIDP PRN #10 tab PRN Reason: Nausea And Vomiting Transmission Status: Pending to [facility] Referrals: Zack Daley MD [Primary Care Provider] - - Critical Care Critical Care Time: No Attestation: On 07/11/21, the high probability of a clinically significant, sudden or life threatening deterioration of the following system(s) required my full and direct attention, intervention and personal management. The time I documented below is in addition to time spent performing reported procedures but includes the following listed in this critical care notation. Medical Decision Making - Bernardo Inquiry Pt receiving controlled substance: No Vital Signs: 07/11/21 17:35 07/11/21 17:59 Temperature 98.9 F Temperature Source Oral Pulse Rate 80 Pulse Rate [Right] 96 H Respiratory Rate 16 18 Blood Pressure 148/90 H Blood Pressure [Right Arm] 142/100 H Blood Pressure Mean [Right Arm] 114 Blood Pressure Source Automatic Cuff Blood Pressure Source [Right Arm] Automatic Cuff Blood Pressure Position Sitting Blood Pressure Position [Right Arm] Sitting 02 Sat by Pulse Oximetry 97 98 Oxygen Delivery Method Room Air Room Air - Lab Data Lab Results 07/11/21 17:50: SARS-CoV-2 (PCR) Not detected, Influenza A Untype (PCR) Not detected, Influenza Type B (PCR) Not detected 07/11/21 18:00: WBC 9.3, RBC 5.97, Hgb 18.3 H, Hct 53.2 H, MCV 89.1, MCH 30.6, MCHC 34.3, RDW 12.9, Plt Count 225, MPV 8.7, Neut % (Auto) 82.4 H, Lymph % (Auto) 8.2 L, [place] % (Auto) 7.2, Eos % (Auto) 1.8, Baso % (Auto) 0.4, Neut # (Auto) 7.7, Lymph # (Auto) 0.8, [place] # (Auto) 0.7, Eos # (Auto) 0.2, Baso # (Auto) 0.0 07/11/21 18:00: Sodium 139, Potassium 4.5, Chloride 99, Carbon Dioxide 27, Anion Gap 17.5 H, BUN 24 H, Creatinine 0.80, Estimated Creat Clear 224, Estimated GFR 100, Est GFR ( Amer) 121, Glucose 266 H, Calcium 9.7, Total Bilirubin 1.5 H, AST 28, ALT 31, Alkaline Phosphatase 94, Troponin I < 0.01, Total Protein 8.2, Albumin 4.7, Globulin 3.5 H, Albumin/Globulin Ratio 1.3, Amylase 88, Lipase 131 Result diagrams: 07/11/21 18:00 07/11/21 18:00 Orders (Tests/Meds): ED MEDICATIONS Generic Name Dose Route Start Last Admin Trade Name Freq PRN Reason Stop Dose Admin Sodium Chloride 1,000 mls @ 999 mls/hr 07/11/21 18:00 07/11/21 18:03 Sod Chlor 0.9% 1000ml Bag IV 07/11/21 19:00 999 mls/hr .Q1H1M JUAN Administration Discontinued Medications Generic Name Dose Route Start Last Admin Trade Name Freq PRN Reason Stop Dose Admin Iopamidol 75 ml 07/11/21 19:03 07/11/21 19:12 Iopamidol-370 (76%);100ml Bottle IV 07/11/21 19:04 75 ml ONCE ONE Administration Meclizine HCl 25 mg 07/11/21 18:23 07/11/21 18:33 Meclizine 25mg Tablet PO 07/11/21 18:24 25 mg ONCE ONE Administration Ondansetron HCl 4 mg 07/11/21 18:00 07/11/21 18:04 Ondansetron 4mg/2ml Vial IV 07/11/21 18:01 4 mg ONCE ONE Administration Sodium Chloride 10 ml 07/11/21 19:04 07/11/21 19:12 Sodium Chloride 0.9% 10ml
[2021-07-11 18:21] LABS: Alanine Aminotransferase 31 U/L (12-78); Albumin Level 4.7 g/dl (3.5-5.0); Albumin/Globulin Ratio 1.3 (1.1-1.8); Alkaline Phosphatase 94 U/L (38-126); Amylase 88 U/L (30-110); Anion Gap 17.5 mEq/L (5-15); Aspartate Amino Transferase 28 U/L (17-59); Bilirubin,Total 1.5 mg/dl (0.2-1.3); Blood Urea Nitrogen 24 mg/dl (9-20); Calcium 9.7 mg/dl (8.4-10.2); Carbon Dioxide 27 mmol/L (22.0-30.0); Chloride 99 mmol/L (98-107); Creatinine Clearance Estimated 224 mL/min (50-200); Estimated Glomerular Filt Rate 100 ml/min (>60); GFR (African American) 121 ML/MIN (>60); Globulin 3.5 g/dL (1.3-3.2); Glucose 266 mg/dl (74-100); Lipase 131 U/L (23-300); Potassium 4.5 mmoL/L (3.5-5.1); Sodium 139 mmol/L (136-145); Total Protein,Serum 8.2 g/dl (6.3-8.2)
--- NOTE | 2021-07-11 18:22 | XR_ITS ---
PROCEDURE INFORMATION: Exam: XR Chest Exam date and time: 07/11/2021 6:22 PM Age: 55 years old Clinical indication: Cough TECHNIQUE: Imaging protocol: XR of the chest. Views: 2 views. COMPARISON: CR XR CHEST PORTABLE 01/30/2021 11:06 AM FINDINGS: Lungs: Unremarkable. No consolidation. Pleural spaces: Unremarkable. No pleural effusion. No pneumothorax. Heart/Mediastinum: Unremarkable. No cardiomegaly. Bones/joints: Midline sternotomy. Prior left atrial appendage clipping. IMPRESSION: No acute findings.
[2021-07-11 18:40] LABS: Troponin I < 0.01 ng/ml (0.00-0.034)
--- NOTE | 2021-07-11 18:50 | ECG_ITS ---
APPROVED REPORT Exam: Resting ECG HR:92 bpm ECG Measurements Heart Rate 92 AXES AL 198 P 68 QRSd 96 QRS 61 QT 382 T 66 QTc 472 Conclusion Normal sinus rhythm Normal ECG Electronically signed by : Zack Rees MD 07/12/2021 20:37:21
[2021-07-11 18:55] LABS: Basophils % 0.4 % (0.1-2.0); Eosinophils # 0.2 K/mm3 (0.0-0.4); Eosinophils % 1.8 % (0.1-12.0); Hematocrit 53.2 % (42.0-52.0); Lymphocytes # 0.8 K/mm3 (0.7-4.5); Lymphocytes % 8.2 % (10-50); Mean Corpuscular HGB Conc 34.3 g/dL (31.8-35.4); Mean Corpuscular Hemoglobin 30.6 pg (27.0-31.2); Mean Corpuscular Volume 89.1 fl (80-94); Mean Platelet Volume 8.7 fl (7.4-10.4); Monocytes # 0.7 K/mm3 (0.1-1.0); Monocytes % 7.2 % (1.7-9.3); Neutrophils # 7.7 K/mm3 (1.8-7.8); Neutrophils % 82.4 % (37.0-80.0); Platelet Count 225 K/mm3 (142-424); Red Blood Count 5.97 M/mm3 (4.60-6.20); Red Cell Distribution Width 12.9 % (11.5-17.5); White Blood Count 9.3 K/mm3 (4.8-10.8)
[2021-07-11 19:05] LABS: Hemoglobin 18.3 g/dL (14.1-18.0)
[2021-07-11 20:26] VITALS: BP 132/61; PULSE 94; RESP 18; TEMP 36.7; O2SAT 98
== END 2021-07-11 20:34 | disposition home or self-care (01) ==
PROVIDERS: Emergency Provider Emergency Medicine; PCP Family Medicine
DX: R11.2 Nausea with vomiting, unspecified (principal); R42 Dizziness and giddiness; R10.84 Generalized abdominal pain; I48.91 Unspecified atrial fibrillation; E11.65 Type 2 diabetes mellitus with hyperglycemia; K21.9 Gastro-esophageal reflux disease without esophagitis; E78.5 Hyperlipidemia, unspecified; Z20.822 Contact with and (suspected) exposure to COVID-19; I10 Essential (primary) hypertension; Z79.899 Other long term (current) drug therapy
CPT/HCPCS: 71046; 74177; 80053; 82150; 83690; 84484; 85025; 93005; 96365; 96375; 99283; C9803; J2405; Q9967; U0003; U0005

== ENCOUNTER → 2021-08-03 09:37 | Outpatient (CLI) | payer OTHER, SELFPAY | PROVIDERS: PCP Family Medicine; Visit Provider Nurse Practitioner | DX: Z20.822 Contact with and (suspected) exposure to COVID-19 (principal) | CPT/HCPCS: C9803; U0003; U0005 ==

== ENCOUNTER → 2021-08-21 12:09 | Outpatient (CLI) | payer OTHER, SELFPAY ==
[2021-08-22 06:43] LABS: Covid-19 Nasal PCR Sendout Lex POSITIVE
== END ==
PROVIDERS: PCP Nurse Practitioner Family; Visit Provider Nurse Practitioner
DX: U07.1 COVID-19 (principal)
CPT/HCPCS: C9803; U0004; U0005

== ENCOUNTER 2021-08-27 19:09 | Emergency (ER) | payer OTHER, SELFPAY ==
[2021-08-27 19:10] VITALS: BP 141/78; PULSE 89; RESP 18; TEMP 37; O2SAT 96; BMI 39.2
--- NOTE | 2021-08-27 20:12 | XR_ITS ---
PROCEDURE INFORMATION: Exam: XR Chest Exam date and time: 08/27/2021 8:12 PM Age: 55 years old Clinical indication: Cough; Prior surgery; Surgery date: 6+ months; Surgery type: Cardiac stents TECHNIQUE: Imaging protocol: XR of the chest. Views: 1 view. COMPARISON: CR XR CHEST 2V 07/11/2021 6:35 PM FINDINGS: Lungs: No consolidation. Pleural spaces: No pneumothorax. Heart/Mediastinum: No cardiomegaly. Bones/joints: Median sternotomy wires. No acute abnormality. IMPRESSION: No acute findings.
--- NOTE | 2021-08-27 20:14 | HMH.EDGENADL ---
ED Disposition Clinical Impression: Nausea vomiting and diarrhea, COVID-19 Disposition: Home, Self-Care Condition on Discharge: Good Instructions: Nausea and Vomiting-Adult, DI for COVID-19 (Suspected or Confirmed ) Additional Instructions: You have been evaluated for nausea, vomiting, diarrhea in the setting of COVID-19. Please try to stay hydrated with water and Gatorade. Take Zofran as needed for nausea and vomiting. Tylenol for aches and pains. Follow-up with your primary care doctor. Return to the emergency department for any new or worsening symptoms. Prescriptions: ondansetron HCL [Ondansetron 4mg tab*] 4 mg PO Q6HP PRN #10 tab PRN Reason: Nausea And Vomiting Transmission Status: Pending to [facility] Referrals: Fiona Ortzi APRN [Primary Care Provider] - Time of Disposition: 22:27 - Critical Care Critical Care Time: No Attestation: On 08/27/21, the high probability of a clinically significant, sudden or life threatening deterioration of the following system(s) required my full and direct attention, intervention and personal management. The time I documented below is in addition to time spent performing reported procedures but includes the following listed in this critical care notation. Medical Decision Making - Medical Records Medical records reviewed: Yes: I reviewed the patient's medical records. - Bernardo Inquiry Pt receiving controlled substance: No Vital Signs: 08/27/21 19:10 Temperature 98.6 F Temperature Source Oral Pulse Rate [Apical] 89 Respiratory Rate 18 Blood Pressure [Right Arm] 141/78 H Blood Pressure Mean [Right Arm] 99 Blood Pressure Source [Right Arm] Automatic Cuff Blood Pressure Position [Right Arm] Sitting 02 Sat by Pulse Oximetry 96 Oxygen Delivery Method Room Air - Lab Data Lab Results 08/27/21 20:00: WBC 5.3, RBC 5.73, Hgb 16.9, Hct 53.4 H, MCV 93.2, MCH 29.4, MCHC 31.6 L, RDW 14.1, Plt Count 207, MPV 8.2, Neut % (Auto) 81.2 H, Lymph % (Auto) 10.4, [place] % (Auto) 4.7, Eos % (Auto) 2.8, Baso % (Auto) 1.0, Neut # (Auto) 4.3, Lymph # (Auto) 0.6 L, [place] # (Auto) 0.3, Eos # (Auto) 0.2, Baso # (Auto) 0.1 08/27/21 20:00: Sodium 139, Potassium 3.8, Chloride 102, Carbon Dioxide 27, Anion Gap 13.8, BUN 21 H, Creatinine 0.80, Estimated Creat Clear 228, Estimated GFR 100, Est GFR ( Amer) 121, Glucose 190 H, Calcium 9.1, Total Bilirubin 1.5 H, AST 23, ALT 23, Alkaline Phosphatase 80, Total Protein 7.3, Albumin 4.5, Globulin 2.8, Albumin/Globulin Ratio 1.6, Lipase 53, Acetone Level Small 08/27/21 20:12: VBG pH 7.35, VBG pCO2 39.1, VBG pO2 52.0 H, VBG HCO3 21.0 L, VBG Total CO2 22.2 L, VBG O2 Saturation 86.1 H, VBG Base Excess -4.6 L Result diagrams: 08/27/21 20:00 08/27/21 20:00 Orders (Tests/Meds): ED MEDICATIONS Generic Name Dose Route Start Last Admin Trade Name Freq PRN Reason Stop Dose Admin Sodium Chloride 1,000 mls @ 999 mls/hr 08/27/21 20:15 08/27/21 20:17 Sod Chlor 0.9% 1000ml Bag IV 08/27/21 21:15 999 mls/hr .Q1H1M JUAN Administration Discontinued Medications Generic Name Dose Route Start Last Admin Trade Name Freq PRN Reason Stop Dose Admin Ondansetron HCl 4 mg 08/27/21 20:13 08/27/21 20:17 Ondansetron 4mg/2ml Vial IV 08/27/21 20:14 4 mg ONCE ONE Administration Medical Decision Narrative: In summary this is a 55yo male with history of DM2 and day 6 of COVID presenting to the emergency department with nausea, vomiting, diarrhea. Patient clinically stable on arrival. VSS. No hypoxia or respiratory difficulty. Concern for dehydration, electrolyte derangement, hyperglyemia, DKA, COVID. My concern for intra-abdominal surgical complication is lower, given that he does not have abdominal pain or tenderness on examination. Will start with CBC, CMP, lipase, VBG, acetone, CXR. Patient given IV fluid bolus and zofran. Laboratory results reassuring. Glucose elevated at 190. Small acetone present. No acidosis on
[2021-08-27 20:22] LABS: Basophils # 0.1 K/mm3 (0-0.2); Eosinophils # 0.2 K/mm3 (0.0-0.4); Eosinophils % 2.8 % (0.1-12.0); Hematocrit 53.4 % (42.0-52.0); Hemoglobin 16.9 g/dL (14.1-18.0); Lymphocytes # 0.6 K/mm3 (0.7-4.5); Lymphocytes % 10.4 % (10-50); Mean Corpuscular HGB Conc 31.6 g/dL (31.8-35.4); Mean Corpuscular Hemoglobin 29.4 pg (27.0-31.2); Mean Corpuscular Volume 93.2 fl (80-94); Mean Platelet Volume 8.2 fl (7.4-10.4); Monocytes # 0.3 K/mm3 (0.1-1.0); Monocytes % 4.7 % (1.7-9.3); Neutrophils # 4.3 K/mm3 (1.8-7.8); Neutrophils % 81.2 % (37.0-80.0); Platelet Count 207 K/mm3 (142-424); Red Blood Count 5.73 M/mm3 (4.60-6.20); Red Cell Distribution Width 14.1 % (11.5-17.5); White Blood Count 5.3 K/mm3 (4.8-10.8)
[2021-08-27 20:33] LABS: Alanine Aminotransferase 23 U/L (12-78); Albumin Level 4.5 g/dl (3.5-5.0); Albumin/Globulin Ratio 1.6 (1.1-1.8); Alkaline Phosphatase 80 U/L (38-126); Anion Gap 13.8 mEq/L (5-15); Aspartate Amino Transferase 23 U/L (17-59); Bilirubin,Total 1.5 mg/dl (0.2-1.3); Blood Urea Nitrogen 21 mg/dl (9-20); Calcium 9.1 mg/dl (8.4-10.2); Carbon Dioxide 27 mmol/L (22.0-30.0); Chloride 102 mmol/L (98-107); Creatinine Clearance Estimated 228 mL/min (50-200); Estimated Glomerular Filt Rate 100 ml/min (>60); GFR (African American) 121 ML/MIN (>60); Globulin 2.8 g/dL (1.3-3.2); Glucose 190 mg/dl (74-100); Lipase 53 U/L (23-300); Potassium 3.8 mmoL/L (3.5-5.1); Sodium 139 mmol/L (136-145); Total Protein,Serum 7.3 g/dl (6.3-8.2)
[2021-08-27 20:54] LABS: Acetone, Serum (Rapid) Small (None Detect)
[2021-08-27 22:36] LABS: VBG Base Excess -4.6 mmol/L (-2.4-2.3); VBG Oxygen Saturation 86.1 % (50-70); VBG PCO2 39.1 mmol/L (35-51); VBG PH 7.35 mmol/L (7.31-7.41); VBG Total CO2 22.2 mmol/L (23-27)
[2021-08-27 23:13] VITALS: BP 111/73; PULSE 84; RESP 18; TEMP 36.9; O2SAT 96
== END 2021-08-27 23:19 | disposition home or self-care (01) ==
PROVIDERS: Emergency Medicine; Emergency Provider Emergency Medicine; PCP Nurse Practitioner Family
DX: R11.2 Nausea with vomiting, unspecified (principal); R19.7 Diarrhea, unspecified; U07.1 COVID-19; I10 Essential (primary) hypertension; E78.5 Hyperlipidemia, unspecified; K21.9 Gastro-esophageal reflux disease without esophagitis; I48.0 Paroxysmal atrial fibrillation; Z79.899 Other long term (current) drug therapy
CPT/HCPCS: 71045; 80053; 82009; 82803; 83690; 85025; 99283; J2405

== ENCOUNTER 2022-01-30 17:58 | Emergency (ER) | payer OTHER, SELFPAY ==
[2022-01-30 18:30] VITALS: BP 137/77; PULSE 73; RESP 17; TEMP 36.7; O2SAT 98; BMI 38.8
--- NOTE | 2022-01-30 18:58 | HMH.EDUTC ---
[facility] Disposition Clinical Impression: Right otitis media Qualifiers: Otitis media type: suppurative Chronicity: acute Recurrence: non-recurrent Spontaneous tympanic membrane rupture: without spontaneous rupture Qualified Code(s): H66.001 - Acute suppurative otitis media without spontaneous rupture of ear drum, right ear Disposition: Home, Self-Care Condition on Discharge: Good Instructions: Middle Ear Infection, Ketorolac Injection Additional Instructions: Drink plenty of fluids. Take tylenol or ibuprofen for pain or fever. Take the medications as directed. Follow up with your regular doctor. GO TO THE ER FOR ANY WORSENING SYMPTOMS Prescriptions: methylPREDNISolone [Medrol] 4 mg PO DIRECTED 6 Days #21 packet Transmission Status: Received by [facility] Neomycin/Polymyxin B Sulf/Hc [Dsvyqtfl-Rzuymrydy-HX Otic Susp 10mL] 3 drops EAR-RIGHT TID 7 Days #1 ml Transmission Status: Received by [facility] Cefdinir [Omnicef 300mg Capsule] 300 mg PO BID #20 cap Transmission Status: [facility] Referrals: Fiona Ortiz APRN [Primary Care Provider] - Time of Disposition: 19:09 Medical Decision Making - Medical Records Medical records reviewed: No: I reviewed the patient's medical records. - Bernardo Inquiry Pt receiving controlled substance: No Vital Signs: 01/30/22 18:30 01/30/22 19:21 Temperature 98.1 F 98.1 F Temperature Source Oral Pulse Rate 73 Pulse Rate [Left] 73 Respiratory Rate 17 17 Blood Pressure 137/77 Blood Pressure [Right Arm] 137/77 Blood Pressure Mean [Right Arm] 97 02 Sat by Pulse Oximetry 98 Orders (Tests/Meds): ED MEDICATIONS Discontinued Medications Generic Name Dose Route Start Last Admin Trade Name Freq PRN Reason Stop Dose Admin Ketorolac Tromethamine 60 mg 01/30/22 19:05 01/30/22 19:12 Ketorolac 60mg/2ml Vial IM 01/30/22 19:06 60 mg ONCE ONE Administration [facility] HPI - General Stated complaint: R ear pain Time Seen by Provider: 01/30/22 18:58 Description of Symptoms (Recalled from Triage Doc. by RN): patient comes in for right ear pain that began a few hours ago HEENT Symptoms (Recalled from RN notes): Yes Resp Symptoms (Recalled from RN notes): No Skin Symptoms (Recalled from RN notes): No MS Symptoms (Recalled from RN notes): No Functional Status (Recalled from RN notes): n/a - History of Present Illness Provider Complaint: He states that since this morning he has had right ear pain. He is not hearing well out of that ear also. He has a t-tube in his left ear. He denies any fever or chills. - Related Data Home Medications Medication Instructions Recorded Confirmed empagliflozin 25 mg-linagliptin 5 1 tab PO DAILY 90 Days #90 12/06/17 12/29/21 mg tablet montelukast 10 mg tablet 10 mg PO DAILY 90 Days #90 12/06/17 12/29/21 omeprazole 40 mg capsule,delayed 40 mg PO DAILY 90 Days #90 12/06/17 12/29/21 release vitamin B comp with C no.4 150 mg 1 tab PO DIRECTED tab 03/21/18 12/29/21 tablet aspirin 81 mg tablet,delayed 81 mg PO DAILY 07/23/19 12/29/21 release nabumetone 750 mg tablet 750 mg PO BID tab 12/11/19 12/29/21 Furosemide [Furosemide 40MG tAB*] 40 mg PO DAILY 12/30/20 12/29/21 Evolocumab [Repatha SureClick] See Rx Instructions .ROUTE .COMPLEX 03/21/21 12/29/21 Famotidine [Acid Bark Spudder] 20 mg PO DAILY 03/21/21 12/29/21 glyburide 5 mg tablet 5 mg PO DAILY tab 05/11/21 12/29/21 semaglutide 1 mg/dose (2 mg/1.5 1 mg SQ WEEKLY 06/30/21 12/29/21 mL) subcutaneous pen injector Previous Rx's Medication Instructions Recorded tadalafil 5 mg tablet 5 mg PO DAILY PRN #10 tab 02/16/21 ranolazine 500 mg tablet,extended 500 mg PO BID #180 tab 05/05/21 release,12 hr spironolactone 25 mg tablet 25 mg PO BID #60 tab 06/02/21 Meclizine HCl [Antivert 25mg 25 mg PO TIDP PRN #15 tab 07/11/21 tablet] Ondansetron [Zofran 4mg ODT] 4 mg PO TIDP PRN #10 tab 07/11/21 on
[2022-01-30 19:21] VITALS: BP 137/77; PULSE 73; RESP 17; TEMP 36.7
== END 2022-01-30 19:22 | disposition home or self-care (01) ==
PROVIDERS: Emergency Provider Nurse Practitioner Family; PCP Nurse Practitioner Family
DX: H66.001 Acute suppurative otitis media without spontaneous rupture of ear drum, right ear (principal); R00.2 Palpitations; R53.81 Other malaise; I10 Essential (primary) hypertension; I25.10 Atherosclerotic heart disease of native coronary artery without angina pectoris; I48.91 Unspecified atrial fibrillation; K21.9 Gastro-esophageal reflux disease without esophagitis; E78.5 Hyperlipidemia, unspecified; Z79.02 Long term (current) use of antithrombotics/antiplatelets; E11.9 Type 2 diabetes mellitus without complications; Z87.898 Personal history of other specified conditions; Z88.0 Allergy status to penicillin; Z88.8 Allergy status to other drugs, medicaments and biological substances; Z91.013 Allergy to seafood; Z95.1 Presence of aortocoronary bypass graft; Z87.442 Personal history of urinary calculi; Z82.49 Family history of ischemic heart disease and other diseases of the circulatory system; Z83.3 Family history of diabetes mellitus; Z80.9 Family history of malignant neoplasm, unspecified
CPT/HCPCS: 96372; 99213; G0463

== ENCOUNTER 2022-02-04 10:45 | Emergency (ER) | payer OTHER, SELFPAY ==
[2022-02-04 10:46] VITALS: BP 117/56; PULSE 80; RESP 16; TEMP 36.6; O2SAT 98; BMI 39.2
[2022-02-04 11:18] VITALS: BP 117/56; PULSE 80; RESP 16; TEMP 36.7; O2SAT 98; BMI 39.2
--- NOTE | 2022-02-04 11:57 | HMH.EDUTC ---
[facility] Disposition Clinical Impression: Right otitis media Qualifiers: Otitis media type: suppurative Chronicity: acute Recurrence: non-recurrent Spontaneous tympanic membrane rupture: without spontaneous rupture Qualified Code(s): H66.001 - Acute suppurative otitis media without spontaneous rupture of ear drum, right ear Conjunctivitis Qualifiers: Conjunctivitis type: unspecified Laterality: bilateral Qualified Code(s): H10.9 - Unspecified conjunctivitis Disposition: Home, Self-Care Condition on Discharge: Good Instructions: How to Instill Ear Drops, How to Instill Eye Drops, Conjunctivitis Additional Instructions: Use the eye drops as directed. Use the ear drops as directed BE VERY CAREFUL ABOUT USING THE EYE DROPS AND THE EAR DROPS CORRECTLY. MAKE ABSOLUTELY SURE YOU DON'T MIX THEM UP. Follow up with your regular doctor. Follow up with an eye doctor. GO TO THE ER FOR ANY WORSENING SYMPTOMS Prescriptions: Neomycin/Polymyxin B Sulf/Hc [Hpzkrztq-Xodykkywi-IZ Otic Susp 10mL] 3 drops EAR-RIGHT TID 7 Days #1 ml Transmission Status: Received by [facility] Moxifloxacin HCl [Vigamox] 1 drp OP TID 7 Days #3 ml Transmission Status: Received by [facility] Referrals: Lela Sánchez MD [Primary Care Provider] - Time of Disposition: 12:07 Medical Decision Making - Medical Records Medical records reviewed: No: I reviewed the patient's medical records. - Bernardo Inquiry Pt receiving controlled substance: No Vital Signs: 02/04/22 10:46 02/04/22 11:18 02/04/22 12:13 Temperature 98 F 98.0 F 98.0 F Temperature Source Oral Oral Oral Pulse Rate 80 Pulse Rate [Radial] 80 80 Respiratory Rate 16 16 16 Blood Pressure 117/56 L Blood Pressure [Right Arm] 117/56 L 117/56 L Blood Pressure Mean [Right Arm] 76 76 Blood Pressure Source Automatic Cuff Blood Pressure Source [Right Arm] Automatic Cuff Blood Pressure Position Sitting Blood Pressure Position [Right Arm] Sitting Sitting 02 Sat by Pulse Oximetry 98 98 Oxygen Delivery Method Room Air Room Air Room Air [facility] HPI - General Stated complaint: eye irritation/redness, ear pain Time Seen by Provider: 02/04/22 11:57 Mode of Arrival: Ambulatory Source of Information: Patient Limitations: No Limitations Description of Symptoms (Recalled from Triage Doc. by RN): pt c/o rt ear pain states seen in [facility] for same given ear drops but grandson squirted them all over the couch pt also c/o rt eye burning, redness HEENT Symptoms (Recalled from RN notes): Yes (ear pain) Resp Symptoms (Recalled from RN notes): No Skin Symptoms (Recalled from RN notes): No MS Symptoms (Recalled from RN notes): No Functional Status (Recalled from RN notes): na - History of Present Illness Provider Complaint: He is here with continued complaints of right ear pain. he states that his symptoms are some better since his previous visit here, but his grandson poured his ear drops out after 2 days. He has also had some matting of his eyes in the mornings when he wakes up. - Related Data Home Medications Medication Instructions Recorded Confirmed empagliflozin 25 mg-linagliptin 5 1 tab PO DAILY 90 Days #90 12/06/17 12/29/21 mg tablet montelukast 10 mg tablet 10 mg PO DAILY 90 Days #90 12/06/17 12/29/21 omeprazole 40 mg capsule,delayed 40 mg PO DAILY 90 Days #90 12/06/17 12/29/21 release vitamin B comp with C no.4 150 mg 1 tab PO DIRECTED tab 03/21/18 12/29/21 tablet aspirin 81 mg tablet,delayed 81 mg PO DAILY 07/23/19 12/29/21 release nabumetone 750 mg tablet 750 mg PO BID tab 12/11/19 12/29/21 Furosemide [Furosemide 40MG tAB*] 40 mg PO DAILY 12/30/20 12/29/21 Evolocumab [Repatha Diegoick] See Rx Instructions .ROUTE .COMPLEX 03/21/21 12/29/21 Famotidine [Acid Food Supervisor] 20 mg PO DAILY 03/21/21 12/29/21 glyburide 5 mg tablet 5 mg PO DAILY tab 05/11/21 12/29/21 semaglutide 1 mg/dose (2 mg/1.5 1 mg SQ WEEKLY 06/30/21 12/29/21 mL) subcutaneous p
[2022-02-04 12:13] VITALS: BP 117/56; PULSE 80; RESP 16; TEMP 36.7; O2SAT 98
== END 2022-02-04 12:13 | disposition home or self-care (01) ==
PROVIDERS: Emergency Provider Nurse Practitioner Family; PCP Family Medicine
DX: H66.001 Acute suppurative otitis media without spontaneous rupture of ear drum, right ear (principal); H10.9 Unspecified conjunctivitis
CPT/HCPCS: 99212; G0463

== ENCOUNTER → 2022-07-20 11:17 | Outpatient (CLI) | payer OTHER, SELFPAY ==
[2022-07-20 12:08] LABS: Basophils # 0.1 K/mm3 (0-0.2); Eosinophils # 0.2 K/mm3 (0.0-0.4); Eosinophils % 2.9 % (0.1-12.0); Hematocrit 52.2 % (42.0-52.0); Hemoglobin 16.8 g/dL (14.1-18.0); Lymphocytes # 1.7 K/mm3 (0.7-4.5); Lymphocytes % 20.2 % (10-50); Mean Corpuscular HGB Conc 32.1 g/dL (31.8-35.4); Mean Corpuscular Volume 90.2 fl (80-94); Monocytes # 0.6 K/mm3 (0.1-1.0); Monocytes % 6.7 % (1.7-9.3); Neutrophils # 5.7 K/mm3 (1.8-7.8); Neutrophils % 69.3 % (37.0-80.0); Platelet Count 216 K/mm3 (142-424); Red Blood Count 5.78 M/mm3 (4.60-6.20); Red Cell Distribution Width 14.5 % (11.5-17.5); White Blood Count 8.2 K/mm3 (4.8-10.8)
[2022-07-20 12:57] LABS: Chloride 102 mmol/L (98-107)
[2022-07-20 12:58] LABS: Sodium 141 mmol/L (136-145)
[2022-07-20 13:00] LABS: Alanine Aminotransferase 24 U/L (12-78); Albumin Level 4.5 g/dl (3.5-5.0); Alkaline Phosphatase 84 U/L (38-126); Aspartate Amino Transferase 23 U/L (17-59); Bilirubin,Direct 0.2 mg/dl (0.0-0.4); Bilirubin,Indirect 0.5 mg/dL (0.0-0.9); Bilirubin,Total 0.7 mg/dl (0.2-1.3); Bilirubin,Unconjugated 0.5 mg/dL (0.0-1.1); Blood Urea Nitrogen 27 mg/dl (9-20); Carbon Dioxide 29 mmol/L (22.0-30.0); Cholesterol 138 mg/dl (140-200); Estimated Glomerular Filt Rate 87 ml/min (>60); GFR (African American) 106 ML/MIN (>60); Total Protein,Serum 7.4 g/dl (6.3-8.2); Triglycerides 173 mg/dl (30-150); VLDL Cholesterol 35 mg/dL (0-40)
[2022-07-20 13:01] LABS: Chol/HDL Ratio 3.9 (1-3.5); Glucose 145 mg/dl (74-100); HDL Cholesterol 35 mg/dl (40-60); Magnesium 1.8 mg/dl (1.6-2.3)
[2022-07-20 13:12] LABS: Direct LDL Cholesterol 76.03 mg/dL (100-129)
[2022-07-20 13:18] LABS: Free T4 (Free Thyroxine) 1.29 ng/dl (0.78-2.19)
[2022-07-20 13:30] LABS: Thyroid Stimulating Hormone 0.83 uIU/mL (0.465-4.68)
== END ==
PROVIDERS: PCP Family Medicine; Visit Provider Internal Medicine Cardiovascular Disease
DX: I25.10 Atherosclerotic heart disease of native coronary artery without angina pectoris (principal); I20.8 Other forms of angina pectoris; I10 Essential (primary) hypertension; I25.5 Ischemic cardiomyopathy; I48.0 Paroxysmal atrial fibrillation; E78.2 Mixed hyperlipidemia; Z86.79 Personal history of other diseases of the circulatory system; Z95.1 Presence of aortocoronary bypass graft; Z98.890 Other specified postprocedural states
CPT/HCPCS: 36415; 80048; 80061; 80076; 83735; 84439; 84443; 85025

== ENCOUNTER 2023-03-28 16:01 | Emergency (ER) | payer OTHER, SELFPAY ==
[2023-03-28 16:41] VITALS: BP 128/82; PULSE 84; O2SAT 97
[2023-03-28 16:46] VITALS: BP 128/82; PULSE 83; RESP 16; TEMP 36.7; O2SAT 97; BMI 42.1
[2023-03-28 16:49] VITALS: BMI 42.1
--- NOTE | 2023-03-28 17:10 | HMH.EDGENADL ---
Discharge Plan Disposition Patient Disposition: Home, Self-Care Condition: Fair Prescriptions Prescriptions: No Action aspirin [Adult Aspirin Regimen] 81 mg tablet,delayed release (DR/EC) 81 mg PO DAILY Farxiga 10 mg tablet 10 mg PO DAILY Januvia 100 mg tablet 100 mg PO DAILY omeprazole 40 mg capsule,delayed release(DR/EC) 40 mg PO DAILY 90 Days Qty: 90 montelukast 10 mg tablet 10 mg PO DAILY 90 Days Qty: 90 Super B Complex + C 150 mg tablet 1 tab PO DIRECTED nabumetone 750 mg tablet 750 mg PO BID loratadine 10 mg tablet 10 mg PO DAILY Patient Comments: TAKE 1 TABLET BY MOUTH ONCE DAILY insulin lispro protamin-lispro [Humalog Mix 75-25 KwikPen] 100 unit/mL (75-25) insulin pen 60 unit SQ BID Phazyme 500 mg capsule 500 mg PO .every 4 hours Qty: 90 1RF Repatha SureClick 140 mg/mL pen injector See Rx Instructions .ROUTE .COMPLEX Qty: 6 4RF Dose Instruction: INJECT 140 MG UNDER THE SKIN EVERY 2 WEEKS Rx Instructions: INJECT 140 MG UNDER THE SKIN EVERY 2 WEEKS ranolazine 500 mg tablet extended release 12 hr 500 mg PO BID Qty: 180 3RF spironolactone 25 mg tablet 25 mg PO BID Qty: 60 7RF losartan 100 mg tablet See Rx Instructions .ROUTE .COMPLEX Qty: 90 3RF Dose Instruction: Take 1 tablet by mouth once daily Rx Instructions: Take 1 tablet by mouth once daily famotidine [Pepcid] 40 mg tablet 40 mg PO DAILY Qty: 30 3RF furosemide 40 MG tablet 40 mg PO DAILY meclizine 25 MG tablet 25 mg PO TIDP PRN (Reason: Vertigo) Qty: 15 0RF ondansetron 4 MG tablet,disintegrating 4 mg PO TIDP PRN (Reason: Nausea And Vomiting) Qty: 10 0RF Referrals Follow up/Referrals: Lela Sánchez MD [Primary Care Provider] - See instructions Activity Restrictions/Add. Instructions Additional Instructions/Restrictions: Call your family doctor to establish care for this visit to the emergency department and schedule follow-up within 48 hours to ensure improvement. If you have any worsening of your condition or any other concerning signs or symptoms, return to the emergency department or your primary care doctor for further evaluation. 25 mg Benadryl (1 tab) every 6 hours to help. Clinical Impressions Clinical Impression: Rash Instructions Patient Instructions: DI for Skin Abscess Discharge ED Provider: Levi Mckeon General Adult HPI General Chief complaint: Skin/Abscess/Foreign Body Stated complaint: possible reaction Time Seen by Provider: 03/28/23 16:49 Mode of Arrival: Ambulatory Source of Information: Patient and Spouse Limitations: No Limitations Description of Symptoms (Recalled from ER Triage Doc. by RN): 57 yo M presents to ED with c/o hives/rash. pt reports he used a different brand of deodarant a few days ago. pt reports hives/rash began yesterday. began under arms, but has now spread to his abdomen. History of Present Illness HPI narrative: Is a 57-year-old female with history of hypertension, hyperlipidemia status post two-vessel CABG, SIMBA on CPAP, presenting with rash. Patient states he started developing a rash today, 03/28. Used new deodorant 2 days prior to arrival, but not sure if that is related. Denies fevers, chills, nausea or vomiting, but has had sore throat that started today as well as tongue pain. Denies difficulty breathing or swallowing, decreased p.o. intake, chest pain, shortness of breath, abdominal pain, wheezing, shortness of breath, diarrhea, or any other concerns at this time. Related Data Home Medications Medication Instructions Recorded Confirmed montelukast 10 mg tablet 10 mg PO DAILY allergies 90 days 12/06/17 11/22/22 ##90 omeprazole 40 mg capsule,delayed 40 mg PO DAILY GERD 90 days ##90 12/06/17 11/22/22 release vitamin B comp with C no.4 150 mg 1 tab PO DIRECTED Supplement 03/21/18 11/22/22 tablet (Super B Complex + C) aspirin 81 mg tablet,
[2023-03-28 18:25] LABS: Strep Scrn Group A (Rapid) Negative (Negative)
[2023-03-28 18:42] VITALS: BP 128/83; PULSE 83; RESP 16; TEMP 36.7
== END 2023-03-28 18:46 | disposition home or self-care (01) ==
PROVIDERS: Emergency Provider Emergency Medicine; PCP Family Medicine
DX: R21 Rash and other nonspecific skin eruption (principal); I10 Essential (primary) hypertension; I25.118 Atherosclerotic heart disease of native coronary artery with other forms of angina pectoris; E78.5 Hyperlipidemia, unspecified; G47.33 Obstructive sleep apnea (adult) (pediatric); I42.9 Cardiomyopathy, unspecified; Z87.891 Personal history of nicotine dependence
CPT/HCPCS: 87430; 99283

== ENCOUNTER → 2023-05-28 10:32 | Outpatient (CLI) | payer OTHER, SELFPAY ==
[2023-05-28 11:10] LABS: Basophils # 0.1 K/mm3 (0-0.2); Basophils % 0.8 % (0.1-2.0); Eosinophils # 0.2 K/mm3 (0.0-0.4); Eosinophils % 2.2 % (0.1-12.0); Hematocrit 48.1 % (42.0-52.0); Hemoglobin 16.5 g/dL (14.1-18.0); Lymphocytes # 1.4 K/mm3 (0.7-4.5); Lymphocytes % 19.3 % (10-50); Mean Corpuscular HGB Conc 34.3 g/dL (31.8-35.4); Mean Corpuscular Volume 90.1 fl (80-94); Monocytes # 0.6 K/mm3 (0.1-1.0); Monocytes % 7.7 % (1.7-9.3); Neutrophils # 5.2 K/mm3 (1.8-7.8); Neutrophils % 70.1 % (37.0-80.0); Platelet Count 227 K/mm3 (142-424); Red Blood Count 5.34 M/mm3 (4.60-6.20); Red Cell Distribution Width 14.6 % (11.5-17.5); White Blood Count 7.4 K/mm3 (4.8-10.8)
[2023-05-28 11:29] LABS: Hemoglobin A1C 8.3 % (4.0-6.0)
[2023-05-28 12:03] LABS: Alanine Aminotransferase 33 U/L (12-78); Albumin Level 4.5 g/dl (3.5-5.0); Alkaline Phosphatase 91 U/L (38-126); Anion Gap 17.2 mEq/L (5-15); Aspartate Amino Transferase 28 U/L (17-59); Bilirubin,Direct 0.2 mg/dl (0.0-0.4); Bilirubin,Indirect 0.5 mg/dL (0.0-0.9); Bilirubin,Total 0.7 mg/dl (0.2-1.3); Bilirubin,Unconjugated 0.6 mg/dL (0.0-1.1); Calcium 9.4 mg/dl (8.4-10.2); Carbon Dioxide 27 mmol/L (22.0-30.0); Chloride 101 mmol/L (98-107); Cholesterol 157 mg/dl (140-200); Glucose 173 mg/dl (74-100); HDL Cholesterol 39 mg/dl (40-60); Magnesium 1.8 mg/dl (1.6-2.3); Potassium 4.2 mmoL/L (3.5-5.1); Sodium 141 mmol/L (136-145); Total Protein,Serum 7.5 g/dl (6.3-8.2); Triglycerides 219 mg/dl (30-150); VLDL Cholesterol 44 mg/dL (0-40)
[2023-05-28 12:08] LABS: Blood Urea Nitrogen 21 mg/dl (9-20); Estimated Glomerular Filt Rate 57 ml/min (>60); GFR (African American) 69 ML/MIN (>60)
[2023-05-28 12:14] LABS: Direct LDL Cholesterol 88.42 mg/dL (100-129)
[2023-05-28 12:32] LABS: Thyroid Stimulating Hormone 1.32 uIU/mL (0.465-4.68)
== END ==
PROVIDERS: PCP Family Medicine; Visit Provider Physician Assistant
DX: I25.10 Atherosclerotic heart disease of native coronary artery without angina pectoris (principal); I10 Essential (primary) hypertension; I48.91 Unspecified atrial fibrillation; E78.5 Hyperlipidemia, unspecified; R06.00 Dyspnea, unspecified; Z95.1 Presence of aortocoronary bypass graft; G47.33 Obstructive sleep apnea (adult) (pediatric); E11.9 Type 2 diabetes mellitus without complications; Z98.890 Other specified postprocedural states; Z99.89 Dependence on other enabling machines and devices; Z87.891 Personal history of nicotine dependence; Z79.4 Long term (current) use of insulin
CPT/HCPCS: 36415; 80048; 80061; 80076; 83036; 83735; 84439; 84443; 85025

== ENCOUNTER → 2023-06-14 08:46 | Outpatient (CLI) | payer OTHER, SELFPAY ==
--- NOTE | 2023-06-14 08:47 | CT_ITS ---
FINAL REPORT TECHNIQUE: The patient was injected with IV contrast. Axial images were obtained of the chest by computed tomography. Precontrast images were also obtained. This study was performed with techniques to keep radiation doses as low as reasonably achievable (ALARA). Individualized dose reduction techniques using automated exposure control or adjustment of mA and/or kV according to the patient's size were employed. CLINICAL HISTORY: Shortness of breath, former smoker COMPARISON: None FINDINGS: CT OF THE CHEST WITH AND WITHOUT CONTRAST: There is no axillary adenopathy. There is no mediastinal or hilar adenopathy. Heart size is normal. There is evidence of prior median sternotomy. There is no pericardial or pleural effusion identified. The right brachiocephalic vein and superior vena cava are of small caliber. Question chronic thrombosis or chronic partial thrombosis. There is presumed postoperative change in the left atrial appendage. There is a 5 mm lateral left lower lobe nodule seen on image 59. Calcified granulomas noted in the lingula. Limited images of the upper abdomen demonstrate a left adrenal nodule, favor adenoma. Postcholecystectomy. IMPRESSION: Left lower lobe 5 mm nodule. Consider follow-up chest CT in 6 to 12 months. Small caliber right brachiocephalic vein and superior vena cava. Question chronic thrombosis or chronic partial thrombosis. Reviewed, Interpreted and Dictated by Carlos Alberto Hendrix III, MD Transcribed by Elvia Gordillo Authenticated and [facility]
== END ==
PROVIDERS: PCP Family Medicine; Visit Provider Physician Assistant
DX: R06.09 Other forms of dyspnea (principal); I25.10 Atherosclerotic heart disease of native coronary artery without angina pectoris; I10 Essential (primary) hypertension; I48.91 Unspecified atrial fibrillation; E11.9 Type 2 diabetes mellitus without complications; E78.5 Hyperlipidemia, unspecified; G47.33 Obstructive sleep apnea (adult) (pediatric); Z95.1 Presence of aortocoronary bypass graft; Z98.890 Other specified postprocedural states; Z99.89 Dependence on other enabling machines and devices
CPT/HCPCS: 71270; Q9967

== ENCOUNTER 2023-06-16 13:27 | Emergency (ER) | payer OTHER, SELFPAY ==
[2023-06-16] VITALS (8 sets, daily range): BP systolic 128–171; BP diastolic 71–83; PULSE 80–89; RESP 15–21; TEMP 36.6; O2SAT 96–98; BMI 42.7
--- NOTE | 2023-06-16 13:46 | PC.NURSE ---
Covid/flu and strep swab sent to lab
[2023-06-16 13:49] LABS: Coronavirus 19, PCR Not Detected (NotDetected); Influenza A, PCR Not Detected (NotDetected); Influenza B, PCR Not Detected (NotDetected)
--- NOTE | 2023-06-16 14:21 | CT_ITS ---
PROCEDURE INFORMATION: Exam: CTA Chest With Contrast Exam date and time: 06/16/2023 3:35 PM Age: 57 years old Clinical indication: Shortness of breath and other: Chest pain; Additional info: Questional brachicephakic thrombosis, SOA TECHNIQUE: Imaging protocol: Computed tomographic angiography of the chest with contrast. Exam focused on the arteries. 3D rendering (Not supervised by radiologist): MIP and/or 3D reconstructed images were created by the technologist. Radiation optimization: All CT scans at this facility use at least one of these dose optimization techniques: automated exposure control; mA and/or kV adjustment per patient size (includes targeted exams where dose is matched to clinical indication); or iterative reconstruction. Contrast material: ISOVUE; Contrast volume: 150 ml; Contrast route: INTRAVENOUS (IV); REPORTING DATA: Count of CT and Cardiac NM exams in prior 12 months: This patient has received [address] and 0 known cardiac nuclear medicine studies in the 12 months prior to the current study. COMPARISON: CT CHEST WO/W CON 06/14/2023 8:56 AM and 10/04/2018 FINDINGS: Pulmonary arteries: Normal. No pulmonary emboli. Aorta: Unremarkable. No aortic aneurysm. No aortic dissection. Veins: Relatively small caliber right brachiocephalic and subclavian vein. SVC appears unremarkable. Lungs: Stable ovoid 6 x 4 mm nodule in the lateral subpleural right middle lobe on image 66 dating back to 10/04/2018. A 5 mm calcified nodule lateral left upper lobe on image 52 redemonstrated. There are 2 adjacent 6 mm nodules in the lateral left lower lobe on image 75 of series 6 which are stable. Stable 5 mm nodule left lower lobe on image 81. Stable 4 mm nodule superior segment left lower lobe on image 51. Stable 4 mm subpleural nodule lateral left lower lobe on image 72. Pleural spaces: Unremarkable. No pneumothorax. No pleural effusion. Heart: Postop changes of the left atrial appendage redemonstrated. Lymph nodes: Unremarkable. No enlarged lymph nodes. Adrenal glands: Stable 21 mm low-density left adrenal nodule with a density of-4 compatible with adenoma. Bones/joints: Unremarkable. No acute fracture. Soft tissues: Unremarkable. IMPRESSION: 1. No evident PE. No other acute findings. 2. Relatively small right brachiocephalic and subclavian vein again noted that may be developmental versus residual of old thrombosis. If persistent clinical concern for abnormality in this region consider duplex ultrasound of the right upper extremity. 3. Additional nonemergent findings as above.
--- NOTE | 2023-06-16 14:22 | PC.NURSE ---
Patient reports chest pain to MD. Serna @ for EKG
--- NOTE | 2023-06-16 14:26 | ECG_ITS ---
APPROVED REPORT Exam: Resting ECG HR:85 bpm ECG Measurements Heart Rate 85 AXES IL 205 P 77 QRSd 104 QRS 71 QT 380 T 83 QTc 422 Conclusion SINUS RHYTHM NORMAL ECG UNCONFIRMED REPORT Electronically signed by : Zack Rees MD 06/17/2023 08:24:05
[2023-06-16] MEDS: ASPIRIN 81MG CHEWABLE TABLET 324 MG PO (14:27)
--- NOTE | 2023-06-16 14:31 | PC.NURSE ---
Rounded on patient call light within reach
[2023-06-16 14:37] LABS: Strep Scrn Group A (Rapid) Positive (Negative)
--- NOTE | 2023-06-16 14:38 | HMH.EDGENADL ---
Discharge Plan Disposition Patient Disposition: Home, Self-Care Prescriptions Prescriptions: New clindamycin HCl 150 mg capsule 300 mg PO TID 10 Days Qty: 60 0RF No Action aspirin [Adult Aspirin Regimen] 81 mg tablet,delayed release (DR/EC) 81 mg PO DAILY Farxiga 10 mg tablet 10 mg PO DAILY Januvia 100 mg tablet 100 mg PO DAILY omeprazole 40 mg capsule,delayed release(DR/EC) 40 mg PO DAILY 90 Days Qty: 90 montelukast 10 mg tablet 10 mg PO DAILY 90 Days Qty: 90 Super B Complex + C 150 mg tablet 1 tab PO DIRECTED nabumetone 750 mg tablet 750 mg PO BID loratadine 10 mg tablet 10 mg PO DAILY Patient Comments: TAKE 1 TABLET BY MOUTH ONCE DAILY insulin lispro protamin-lispro [Humalog Mix 75-25 KwikPen] 100 unit/mL (75-25) insulin pen 60 unit SQ BID sucralfate 1 gram tablet 1 g PO BID amlodipine 10 mg tablet 10 mg PO DAILY albuterol sulfate 90 mcg/actuation HFA aerosol inhaler 1 - 2 puff inhalation Q6H PRN (Reason: prior to activity) 30 Days Qty: 8.5 2RF losartan 100 mg tablet See Rx Instructions .ROUTE .COMPLEX Qty: 90 3RF Dose Instruction: Take 1 tablet by mouth once daily Rx Instructions: Take 1 tablet by mouth once daily famotidine [Pepcid] 40 mg tablet 40 mg PO DAILY Qty: 30 3RF (DME) Dexcom G6 Transmitter Device See Rx Instructions .Route Qty: 1 0RF Rx Instructions: As directed spironolactone 25 mg tablet 25 mg PO BID Qty: 60 7RF Repatha SureClick 140 mg/mL pen injector See Rx Instructions .ROUTE .COMPLEX Qty: 6 4RF Dose Instruction: INJECT 140 MG UNDER THE SKIN EVERY 2 WEEKS Rx Instructions: INJECT 140 MG UNDER THE SKIN EVERY 2 WEEKS ranolazine 500 mg tablet extended release 12 hr See Rx Instructions .ROUTE .COMPLEX Qty: 60 6RF Dose Instruction: Take 1 tablet by mouth twice daily Rx Instructions: Take 1 tablet by mouth twice daily furosemide 40 MG tablet 40 mg PO DAILY Referrals Follow up/Referrals: Lela Sánchez MD [Primary Care Provider] - See instructions Activity Restrictions/Add. Instructions Additional Instructions/Restrictions: The CT scan of your chest showed a possible old clot versus congenitally abnormal brachiocephalic vein. It is less impressive than the CT scan done a few days ago on my interpretation and I have opted not to put you on any anticoagulation at the moment. Please follow-up with Dr. Wood and his team to discuss this further. Regarding your strep infection of your throat please return with any difficulty swallowing breathing or any other concerns. Clinical Impressions Clinical Impression: Chest pain, Acute streptococcal pharyngitis Discharge ED Provider: Samuel Villalobos General Adult HPI <Samuel Villalobos MD - Last Filed: 06/16/23 15:05> General Chief complaint: Upper Respiratory Infection Stated complaint: sore throat with blisters Time Seen by Provider: 06/16/23 13:35 Mode of Arrival: Ambulatory Source of Information: Patient Limitations: No Limitations Description of Symptoms (Recalled from ER Triage Doc. by RN): Presents to ED with c/o sore throat and blisters on his throat since yesterday. Denies any other symptoms/fever. Patient reports taking 400mg Ibuprofen at 0600. History of Present Illness HPI narrative: Patient is a 57-year-old male with past medical history of coronary artery disease status post bypass graft, atrial fibrillation status post ablation, hypertension, hyperlipidemia who presents emergency department for evaluation of sore throat. Patient has had sore throat since yesterday. His was recently diagnosed with breast cancer for which she received her first dose of chemotherapy last week and he is concerned being ill around her and came here for a swab. Also patient has had chest pain and shortness of breath that waxes and wanes at baseline for which outpatient CT imaging was ordered and was reportedly abnormal on his portal however he has not been contacted by anyone. Patient has had intermittent chest pain today, substernal, worse with exertion. No other acute complaints at this time. CT imaging reviewed by me. Left lower lobe 5 mm nodule, small caliber right brachiocephalic vein and superior vena cava questioning chronic thrombosis. Related Data Home Medications Medication Instructions Recorded Confirmed montelukast 10 mg tablet 10 mg PO DAILY allergies 90 days 12/06/17 05/28/23 ##90 omeprazole 40 mg capsule,delayed 40 mg PO DAILY GERD 90 days ##90 12/06/17 05/28/23 release vitamin B comp with C no.4 150 mg 1 tab PO DIRECTED Supplement 03/21/18 05/28/23 tablet (Super B Complex + C) aspirin 81 mg tablet,delayed 81 mg PO DAILY Heart disease 07/23/19 05/28/23 release (Adult Aspirin Regimen) nabumetone 750 mg tablet 750 mg PO BID pain 12/11/19 05/28/23 furosemide 40 mg tablet 40 mg PO DAILY Heart disease 12/30/20 05/28/23 insulin lispro protamine-lispro 60 unit SQ BID 07/20/22 05/28/23 100 unit/mL (75-25) subcutaneous pen (Humalog Mix 75-25 KwikPen) loratadine 10 mg tablet 10 mg PO DAILY 07/20/22 05/28/23 dapagliflozin propanediol 10 mg 10 mg PO DAILY 11/22/22 05/28/23 tablet (Farxiga) sitagliptin phosphate 100 mg 100 mg PO DAILY 11/22/22 05/28/23 tablet (Januvia) amlodipine 10 mg tablet 10 mg PO DAILY 05/28/23 05/28/23 sucralfate 1 gram tablet 1 g PO BID 05/28/23 05/28/23 Previous Rx's Medication Instructions Recorded losartan 100 mg tablet See Rx Instructions .Route 12/19/22 .COMPLEX #90 tabs famotidine 40 mg tablet (Pepcid) 40 mg PO DAILY #30 tabs 03/07/23 blood-glucose transmitter (Dexcom #1 ea 04/19/23 G6 Transmitter device) spironolactone 25 mg tablet 25 mg PO BID Fluid #60 tabs 05/01/23 evolocumab 140 mg/mL subcutaneous See Rx Instructions .Route 05/08/23 pen injector (Ernestina Rojo) .COMPLEX #6 mL albuterol sulfate 90 mcg/actuation 1 - 2 puff inhalation Q6H PRN 05/28/23 aerosol inhaler prior to activity 30 days #8.5 grams ranolazine 500 mg tablet,extended See Rx Instructions .Route 06/07/23 release,12 hr .COMPLEX #60 tabs clindamycin HCl 150 mg capsule 300 mg PO TID 10 days #60 caps 06/16/23 Allergies Allergy/AdvReac Type Severity Reaction Status Date / Time Penicillins [PENICILLINS] Allergy Severe SORES IN Verified 05/28/23 09:30 MOUTH shellfish derived Allergy Verified 05/28/23 09:30 TERE Inhibitors AdvReac Intermediate cough Verified 05/28/23 09:30 atorvastatin AdvReac Intermediate myalgia Verified 05/28/23 09:30 rosuvastatin [From Crestor] AdvReac Intermediate myalgia Verified 05/28/23 09:30 PFSH <Samuel Villalobos MD - Last Filed: 06/16/23 15:05> [facility] Disclaimer: The information contained in this section may have been updated after the patient was seen, as this information can be updated by other users. Medical History Atypical chest pain CAD (coronary artery disease) Cardiomyopathy Chest pain Erectile dysfunction HLD (hyperlipidemia) On amiodarone therapy SIMBA on CPAP Typical angina Surgical History S/P CABG x 2 S/P left atrial appendage ligation Social History Smoking Status: Never smoker second hand exposure: Yes alcohol intake: never counseling provided: none substance use type: denies use current occupational status: disabled Travel in the last 8 weeks: Inside the [place] household members: family housing: house current occupation: [employer] current occupational exposures/hazards: No caffeine: No <Samuel Villalobos MD - Last Filed: 06/16/23 15:05> ROS Obtained: Yes Systems reviewed as appropriate & no additional complaints except as documented Physical Exam <Samuel Villalobos MD - Last Filed: 06/16/23 15:05> General General appearance: alert and in no apparent distress Head Head exam: atraumatic and normocephalic Eye Eye exam: Present PERRL and EOMI ENT ENT exam: Present mucous membranes moist and other (Bilateral enlarged pharyngeal tonsils left greater than right with exudate, uvula midline) Neck Neck exam: Present normal inspection Chest Chest inspection: Present normal inspection and symmetric chest wall rise Respiratory Respiratory exam: Present normal lung sounds bilaterally; Absent respiratory distress Cardiovascular Cardiovascular exam: Present regular rate and normal rhythm Abdominal Exam Abdominal exam: Present soft; Absent tenderness Extremities Exam Extremities exam: Present normal inspection Neurological Exam Neurological exam: Present alert Psychiatric Psychiatric exam: Present normal affect Skin Skin exam: Present warm and dry Medical Decision Making <Samuel Villalobos MD - Last Filed: 06/16/23 15:05> Bernardo Inquiry Pt receiving controlled substance: No Vital Signs: 06/16/23 13:29 06/16/23 13:38 06/16/23 14:00 Temperature 98 F Temperature Source Oral Pulse Rate 80 85 Pulse Rate [Right] 86 Respiratory Rate 18 18 18 Blood Pressure 140/83 128/71 Blood Pressure [Right Arm] 140/83 Blood Pressure Mean 101 90 Blood Pressure Mean [Right Arm] 102 Blood Pressure Source [Right Arm] Automatic Cuff Blood Pressure Position [Right Arm] Sitting 02 Sat by Pulse Oximetry 98 98 98 Oxygen Delivery Method Room Air Room Air Room Air 06/16/23 14:31 06/16/23 15:21 06/16/23 16:31 Temperature Temperature Source Pulse Rate 89 82 82 Pulse Rate [Right] Respiratory Rate 18 15 Blood Pressure 157/78 H 157/80 H 171/76 H Blood Pressure [Right Arm] Blood Pressure Mean 107 107 Blood Pressure Mean [Right Arm] Blood Pressure Source [Right Arm] Blood Pressure Position [Right Arm] 02 Sat by Pulse Oximetry 96 96 97 Oxygen Delivery Method Room Air Room Air 06/16/23 17:01 Temperature Temperature Source Pulse Rate 80 Pulse Rate [Right] Respiratory Rate 20 Blood Pressure 151/80 H Blood Pressure [Right Arm] Blood Pressure Mean Blood Pressure Mean [Right Arm] Blood Pressure Source [Right Arm] Blood Pressure Position [Right Arm] 02 Sat by Pulse Oximetry 96 Oxygen Delivery Method Lab Data Lab Results 06/16/23 13:40: Group A Strep Rapid Positive A 06/16/23 13:43: SARS-CoV-2 (PCR) Not detected, Influenza A Untype (PCR) Not detected, Influenza Type B (PCR) Not detected 06/16/23 15:05: WBC 9.3, RBC 5.42, Hgb 16.2, Hct 47.7, MCV 88.1, MCH 30.0, MCHC 34.0, RDW 14.4, Plt Count 193, MPV 8.2, Neut % (Auto) 76.9, Lymph % (Auto) 12.3, Loup % (Auto) 7.8, Eos % (Auto) 2.4, Baso % (Auto) 0.5, Neut # (Auto) 7.1, Lymph # (Auto) 1.1, Loup # (Auto) 0.7, Eos # (Auto) 0.2, Baso # (Auto) 0.1, Sodium 138, Potassium 3.8, Chloride 101, Carbon Dioxide 29, Anion Gap 11.8, BUN 25 H, Creatinine 1.00, Estimated Creat Clear 105, Estimated GFR 77, Est GFR ( Amer) 93, Glucose 232 H, Calcium 9.0, Total Bilirubin 0.8, AST 26, ALT 30, Alkaline Phosphatase 95, Troponin I < 0.01, Total Protein 7.7, Albumin 4.5, Globulin 3.2, Albumin/Globulin Ratio 1.4 06/16/23 15:05 06/16/23 15:05 Orders (Tests/Meds): ED MEDICATIONS Discontinued Medications Generic Name Dose Route Start Last Admin Trade Name Freq PRN Reason Stop Dose Admin Aspirin 324 mg 06/16/23 14:22 06/16/23 14:27 Aspirin 81mg Chewable Tablet PO 06/16/23 14:23 324 mg ONCE ONE Administration Dexamethasone Sodium Phosphate 10 mg 06/16/23 15:06 06/16/23 15:13 Dexamethasone 4mg/Ml 1ml Vial IV 06/16/23 15:07 10 mg ONCE ONE Administration Iopamidol 70 ml 06/16/23 15:38 06/16/23 16:01 Iopamidol-370 (76%);100ml Bottle IV 06/16/23 15:39 70 ml ONCE ONE Administration Iopamidol 80 ml 06/16/23 16:02 06/16/23 16:02 Iopamidol-370 (76%);100ml Bottle IV 06/16/23 16:03 80 ml ONCE ONE Administration Sodium Chloride 50 ml 06/16/23 15:38 06/16/23 16:01 0.9 % Sodium Chloride 50 Ml Vial IV 06/16/23 15:39 50 ml ONCE ONE Administration Sodium Chloride 10 ml 06/16/23 15:38 06/16/23 16:01 Sodium Chloride 0.9% 10ml Syr (Rad Only) IV 06/16/23 15:39 10 ml ONCE ONE Administration ORDERS Category Date Time Status CT angio chest PE protocol Stat Cat Scan 06/16/23 14:21 Completed CBC w/Auto Diff [Complete Blood Count Auto Diff] Stat Lab 06/16/23 15:05 Completed CMP [Comprehensive Metabolic Panel] Stat Lab 06/16/23 15:05 Completed Rapid PCR Covid and Flu A/B Stat Lab 06/16/23 13:43 Completed Strep Scrn Group A (Rapid) Stat Lab 06/16/23 13:40 Completed Trop I [Troponin I] Stat Lab 06/16/23 15:05 Completed Troponin I Q3H Lab 06/16/23 17:30 Ordered Troponin I Q3H Lab 06/16/23 20:30 Ordered ECG initial Besson Routine Y 06/16/23 14:26 Completed ECG Data Tracing #1: Independently interpreted by me, rate is 85, rhythm is regular, axis is normal, no ST elevation in anatomical contiguous leads, QTc 422. Medical Decision Narrative: In summary patient is a 57-year-old male with past medical history described above who presents emergency department for evaluation of sore throat, chest pain. Patient is hemodynamically stable nontoxic-appearing upon arrival, afebrile. Will respect sore throat differential diagnosis includes viral syndrome, strep pharyngitis, COVID, among others. Differential with regards to chest pain includes cardiac chest pain, noncardiac chest pain, brachiocephalic vein thrombosis, pulmonary embolism, among others. Workup will be conducted with hematologic labs, EKG, troponin, CT pulmonary embolism protocol. Initial inventions include aspirin. Initial workup reviewed by me, patient is strep positive. For this dose of IV steroids will be administered and patient will be discharged with course of oral antibiotics. Chest pain workup was largely pending at time of transfer of care to the oncoming physician, Dr. Mistry. <Irvin Mistry MD - Last Filed: 06/16/23 17:13> Vital Signs: 06/16/23 13:29 06/16/23 13:38 06/16/23 14:00 Temperature 98 F Temperature Source Oral Pulse Rate 80 85 Pulse Rate [Right] 86 Respiratory Rate 18 18 18 Blood Pressure 140/83 128/71 Blood Pressure [Right Arm] 140/83 Blood Pressure Mean 101 90 Blood Pressure Mean [Right Arm] 102 Blood Pressure Source [Right Arm] Automatic Cuff Blood Pressure Position [Right Arm] Sitting 02 Sat by Pulse Oximetry 98 98 98 Oxygen Delivery Method Room Air Room Air Room Air 06/16/23 14:31 06/16/23 15:21 06/16/23 16:31 Temperature Temperature Source Pulse Rate 89 82 82 Pulse Rate [Right] Respiratory Rate 18 15 Blood Pressure 157/78 H 157/80 H 171/76 H Blood Pressure [Right Arm] Blood Pressure Mean 107 107 Blood Pressure Mean [Right Arm] Blood Pressure Source [Right Arm] Blood Pressure Position [Right Arm] 02 Sat by Pulse Oximetry 96 96 97 Oxygen Delivery Method Room Air Room Air 06/16/23 17:01 Temperature Temperature Source Pulse Rate 80 Pulse Rate [Right] Respiratory Rate 20 Blood Pressure 151/80 H Blood Pressure [Right Arm] Blood Pressure Mean Blood Pressure Mean [Right Arm] Blood Pressure Source [Right Arm] Blood Pressure Position [Right Arm] 02 Sat by Pulse Oximetry 96 Oxygen Delivery Method Lab Data Lab results reviewed: Yes I reviewed the patient's lab results. Lab Results 06/16/23 13:40: Group A Strep Rapid Positive A 06/16/23 13:43: SARS-CoV-2 (PCR) Not detected, Influenza A Untype (PCR) Not detected, Influenza Type B (PCR) Not detected 06/16/23 15:05: WBC 9.3, RBC 5.42, Hgb 16.2, Hct 47.7, MCV 88.1, MCH 30.0, MCHC 34.0, RDW 14.4, Plt Count 193, MPV 8.2, Neut % (Auto) 76.9, Lymph % (Auto) 12.3, Loup % (Auto) 7.8, Eos % (Auto) 2.4, Baso % (Auto) 0.5, Neut # (Auto) 7.1, Lymph # (Auto) 1.1, Loup # (Auto) 0.7, Eos # (Auto) 0.2, Baso # (Auto) 0.1, Sodium 138, Potassium 3.8, Chloride 101, Carbon Dioxide 29, Anion Gap 11.8, BUN 25 H, Creatinine 1.00, Estimated Creat Clear 105, Estimated GFR 77, Est GFR ( Amer) 93, Glucose 232 H, Calcium 9.0, Total Bilirubin 0.8, AST 26, ALT 30, Alkaline Phosphatase 95, Troponin I < 0.01, Total Protein 7.7, Albumin 4.5, Globulin 3.2, Albumin/Globulin Ratio 1.4 Orders (Tests/Meds): ED MEDICATIONS Discontinued Medications Generic Name Dose Route Start Last Admin Trade Name Freq PRN Reason Stop Dose Admin Aspirin 324 mg 06/16/23 14:22 06/16/23 14:27 Aspirin 81mg Chewable Tablet PO 06/16/23 14:23 324 mg ONCE ONE Administration Dexamethasone Sodium Phosphate 10 mg 06/16/23 15:06 06/16/23 15:13 Dexamethasone 4mg/Ml 1ml Vial IV 06/16/23 15:07 10 mg ONCE ONE Administration Iopamidol 70 ml 06/16/23 15:38 06/16/23 16:01 Iopamidol-370 (76%);100ml Bottle IV 06/16/23 15:39 70 ml ONCE ONE Administration Iopamidol 80 ml 06/16/23 16:02 06/16/23 16:02 Iopamidol-370 (76%);100ml Bottle IV 06/16/23 16:03 80 ml ONCE ONE Administration Sodium Chloride 50 ml 06/16/23 15:38 06/16/23 16:01 0.9 % Sodium Chloride 50 Ml Vial IV 06/16/23 15:39 50 ml ONCE ONE Administration Sodium Chloride 10 ml 06/16/23 15:38 06/16/23 16:01 Sodium Chloride 0.9% 10ml Syr (Rad Only) IV 06/16/23 15:39 10 ml ONCE ONE Administration ORDERS Category Date Time Status CT angio chest PE protocol Stat Cat Scan 06/16/23 14:21 Completed CBC w/Auto Diff [Complete Blood Count Auto Diff] Stat Lab 06/16/23 15:05 Completed CMP [Comprehensive Metabolic Panel] Stat Lab 06/16/23 15:05 Completed Rapid PCR Covid and Flu A/B Stat Lab 06/16/23 13:43 Completed Strep Scrn Group A (Rapid) Stat Lab 06/16/23 13:40 Completed Trop I [Troponin I] Stat Lab 06/16/23 15:05 Completed Troponin I Q3H Lab 06/16/23 17:30 Ordered Troponin I Q3H Lab 06/16/23 20:30 Ordered ECG initial Besson Routine Y 06/16/23 14:26 Completed HEART Score History (anamnesis): Slightly suspicious ECG: Non-specific disturbance Age: 45-65 years Risk factors: Atherosclerosis history Troponin: </= normal limit HEART Score: 4 Medical Decision Narrative: In summary patient is a 57-year-old male with past medical history described above who presents emergency department for evaluation of sore throat, chest pain. Patient is hemodynamically stable nontoxic-appearing upon arrival, afebrile. Will respect sore throat differential diagnosis includes viral syndrome, strep pharyngitis, COVID, among others. Differential with regards to chest pain includes cardiac chest pain, noncardiac chest pain, brachiocephalic vein thrombosis, pulmonary embolism, among others. Workup will be conducted with hematologic labs, EKG, troponin, CT pulmonary embolism protocol. Initial inventions include aspirin. Initial workup reviewed by me, patient is strep positive. For this dose of IV steroids will be administered and patient will be discharged with course of oral antibiotics. Chest pain workup was largely pending at time of transfer of care to the oncoming physician, Dr. Mistry. Reassessment 5:[address] Mistry took over for Dr. Villalobos patient was primarily here for strep pharyngitis. He has a penicillin allergy I prescribed him clindamycin to his pharmacy. Incidentally he had a CT scan done a few days ago which showed a questionable thrombus in the brachiocephalic vein and given the fact that he had some chronic chest discomfort additional CT PE was ordered by Dr. Villalobos and checked out to me. I personally interpreted the images which are less impressive than a CT scan from a few days ago which on my interpretation does not show a definitive thrombus but there is a small brachiocephalic and subclavian vein again noted which may be congenital abnormality versus residual old thrombus. I have chosen not to anticoagulate the patient and advise that he follow-up with Dr. Wood's team for further evaluation and treatment. He is agreeable to this plan. Critical Care <Samuel Villalobos MD - Last Filed: 06/16/23 15:05> Critical Care Time Critical Care Time: No
[2023-06-16] MEDS: DEXAMETHASONE 4MG/ML 1ML VIAL 10 MG IV (15:13)
[2023-06-16 15:17] LABS: Basophils # 0.1 K/mm3 (0-0.2); Basophils % 0.5 % (0.1-2.0); Eosinophils # 0.2 K/mm3 (0.0-0.4); Eosinophils % 2.4 % (0.1-12.0); Hematocrit 47.7 % (42.0-52.0); Hemoglobin 16.2 g/dL (14.1-18.0); Lymphocytes # 1.1 K/mm3 (0.7-4.5); Lymphocytes % 12.3 % (10-50); Mean Corpuscular Volume 88.1 fl (80-94); Mean Platelet Volume 8.2 fl (7.4-10.4); Monocytes # 0.7 K/mm3 (0.1-1.0); Monocytes % 7.8 % (1.7-9.3); Neutrophils # 7.1 K/mm3 (1.8-7.8); Neutrophils % 76.9 % (37.0-80.0); Platelet Count 193 K/mm3 (142-424); Red Blood Count 5.42 M/mm3 (4.60-6.20); Red Cell Distribution Width 14.4 % (11.5-17.5); White Blood Count 9.3 K/mm3 (4.8-10.8)
[2023-06-16 15:18] LABS: Chloride 101 mmol/L (98-107); Potassium 3.8 mmoL/L (3.5-5.1); Sodium 138 mmol/L (136-145)
--- NOTE | 2023-06-16 15:20 | PC.NURSE ---
Rounded on patient; call light within reach of patient
[2023-06-16 15:21] LABS: Alanine Aminotransferase 30 U/L (12-78); Albumin Level 4.5 g/dl (3.5-5.0); Albumin/Globulin Ratio 1.4 (1.1-1.8); Alkaline Phosphatase 95 U/L (38-126); Anion Gap 11.8 mEq/L (5-15); Aspartate Amino Transferase 26 U/L (17-59); Bilirubin,Total 0.8 mg/dl (0.2-1.3); Blood Urea Nitrogen 25 mg/dl (9-20); Carbon Dioxide 29 mmol/L (22.0-30.0); Creatinine Clearance Estimated 105 mL/min (50-200); Estimated Glomerular Filt Rate 77 ml/min (>60); GFR (African American) 93 ML/MIN (>60); Globulin 3.2 g/dL (1.3-3.2); Total Protein,Serum 7.7 g/dl (6.3-8.2)
[2023-06-16 15:22] LABS: Glucose 232 mg/dl (74-100)
[2023-06-16 15:34] LABS: Troponin I < 0.01 ng/ml (0.00-0.034)
[2023-06-16] MEDS: 0.9 % SODIUM CHLORIDE 50 ML VIAL IV (16:01)
[2023-06-16] MEDS: SODIUM CHLORIDE 0.9% 10ML SYR (RAD ONLY) 10 ML IV (16:01)
[2023-06-16] MEDS: IOPAMIDOL-370 (76%);100ML BOTTLE 70 ML IV (16:01)
[2023-06-16] MEDS: IOPAMIDOL-370 (76%);100ML BOTTLE 80 ML IV (16:02)
--- NOTE | 2023-06-16 17:00 | PC.NURSE ---
[facility] rounded on pt , no needs at this time
== END 2023-06-16 17:22 | disposition home or self-care (01) ==
PROVIDERS: Emergency Provider Emergency Medicine; PCP Family Medicine
DX: R07.89 Other chest pain (principal); J02.0 Streptococcal pharyngitis; E11.65 Type 2 diabetes mellitus with hyperglycemia; I11.9 Hypertensive heart disease without heart failure; I48.0 Paroxysmal atrial fibrillation; I25.119 Atherosclerotic heart disease of native coronary artery with unspecified angina pectoris; E78.5 Hyperlipidemia, unspecified; Z95.5 Presence of coronary angioplasty implant and graft; Z79.4 Long term (current) use of insulin; Z11.52 Encounter for screening for COVID-19
CPT/HCPCS: 71275; 80053; 84484; 85025; 87430; 87636; 93005; 96374; 99285; Q9967

== ENCOUNTER 2023-07-04 18:03 | Emergency (ER) | payer OTHER, SELFPAY ==
[2023-07-04 18:05] VITALS: BP 166/92; PULSE 94; RESP 19; TEMP 36.9; O2SAT 97; BMI 41.5
--- NOTE | 2023-07-04 18:21 | XR_ITS ---
PROCEDURE INFORMATION: Exam: XR Left Hand Exam date and time: 07/04/2023 6:18 PM Age: 57 years old Clinical indication: Injury or trauma; Other: Slammed in wood stove door; Laceration; Left; Middle finger; Additional info: Left middle finger injury with nail avulsiuon. Pain in 3rd & 4th digit TECHNIQUE: Imaging protocol: Radiologic exam of the left hand. Views: 3 or more views. COMPARISON: No relevant prior studies available. FINDINGS: Bones/joints: Displaced and comminuted fracture through the distal tuft of the middle finger. No dislocation. Normal carpal bone alignment. Soft tissues: Soft tissue swelling in the distal aspect of the middle finger. 2.5 x 0.5 mm metallic foreign body in the soft tissues of the medial aspect of the 5th finger near the PIP joint. IMPRESSION: 1. Middle finger distal tuft fracture. 2. Tiny metallic soft tissue foreign body in the 5th finger.
--- NOTE | 2023-07-04 18:25 | [facility].EDGENADL ---
Discharge Plan Disposition Patient Disposition: Home, Self-Care Prescriptions Prescriptions: New cephalexin 500 mg capsule 1,000 mg PO BID 7 Days Qty: 28 0RF No Action aspirin [Adult Aspirin Regimen] 81 mg tablet,delayed release (DR/EC) 81 mg PO DAILY Farxiga 10 mg tablet 10 mg PO DAILY Januvia 100 mg tablet 100 mg PO DAILY omeprazole 40 mg capsule,delayed release(DR/EC) 40 mg PO DAILY 90 Days Qty: 90 montelukast 10 mg tablet 10 mg PO DAILY 90 Days Qty: 90 Super B Complex + C 150 mg tablet 1 tab PO DIRECTED nabumetone 750 mg tablet 750 mg PO BID loratadine 10 mg tablet 10 mg PO DAILY Patient Comments: TAKE 1 TABLET BY MOUTH ONCE DAILY insulin lispro protamin-lispro [Humalog Mix 75-25 KwikPen] 100 unit/mL (75-25) insulin pen 60 unit SQ BID sucralfate 1 gram tablet 1 g PO BID amlodipine 10 mg tablet 10 mg PO DAILY albuterol sulfate 90 mcg/actuation HFA aerosol inhaler 1 - 2 puff inhalation Q6H PRN (Reason: prior to activity) 30 Days Qty: 8.5 2RF losartan 100 mg tablet See Rx Instructions .ROUTE .COMPLEX Qty: 90 3RF Dose Instruction: Take 1 tablet by mouth once daily Rx Instructions: Take 1 tablet by mouth once daily famotidine [Pepcid] 40 mg tablet 40 mg PO DAILY Qty: 30 3RF (DME) Linq3com G6 Transmitter Device See Rx Instructions .Route Qty: 1 0RF Rx Instructions: As directed spironolactone 25 mg tablet 25 mg PO BID Qty: 60 7RF Repatha SureClick 140 mg/mL pen injector See Rx Instructions .ROUTE .COMPLEX Qty: 6 4RF Dose Instruction: INJECT 140 MG UNDER THE SKIN EVERY 2 WEEKS Rx Instructions: INJECT 140 MG UNDER THE SKIN EVERY 2 WEEKS ranolazine 500 mg tablet extended release 12 hr See Rx Instructions .ROUTE .COMPLEX Qty: 60 6RF Dose Instruction: Take 1 tablet by mouth twice daily Rx Instructions: Take 1 tablet by mouth twice daily furosemide 40 MG tablet 40 mg PO DAILY clindamycin HCl 150 mg capsule 300 mg PO TID 10 Days Qty: 60 0RF Referrals Follow up/Referrals: Lela Sánchez MD [Primary Care Provider] - See instructions Gerard Russell DO [Staff Physician] - See instructions Activity Restrictions/Add. Instructions Additional Instructions/Restrictions: Call your family doctor to establish care for this visit to the emergency department and schedule follow-up within 48 hours to ensure improvement. If you have any worsening of your condition or any other concerning signs or symptoms, return to the emergency department or your primary care doctor for further evaluation. Take antibiotic twice daily for [address] Ayala's information is here, call to schedule follow-up appointment. Clinical Impressions Clinical Impression: Laceration of finger Qualifiers: Encounter type: initial encounter Finger: middle finger Damage to nail status: with damage Foreign body presence: without foreign body Laterality: left Qualified Code(s): S61.313A - Laceration without foreign body of left middle finger with damage to nail, initial encounter Instructions Patient Instructions: DI for Laceration Repair Discharge ED Provider: Levi Mckeon General Adult HPI General Chief complaint: Wound/Laceration Stated complaint: AO left middle finger injury [id number] Time Seen by Provider: 07/04/23 18:06 Mode of Arrival: Ambulatory Source of Information: Patient Limitations: No Limitations Description of Symptoms (Recalled from ER Triage Doc. by RN): 57 yo M presents to ED with laceration to left hand middle finger. pt reports that he was putting wood into a wood stove, his hand was placed in the doorway of the stove. pt states he went to toss in a piece of wood and the wood caught his finger on the doorway . unknown status of tetanus shot History of Present Illness HPI narrative: 57-year male presenting with left middle finger injury. Injured it w
[2023-07-04 20:06] VITALS: BP 166/90; PULSE 92; RESP 16; TEMP 36.7; O2SAT 98
--- NOTE | 2023-07-04 20:25 | PC.NURSE ---
Pt lac cleansed with soap and water, non adherent bandage applied with curlex gauze.
== END 2023-07-04 20:26 | disposition home or self-care (01) ==
PROVIDERS: Emergency Provider Emergency Medicine; PCP Family Medicine
DX: S61.313A Laceration without foreign body of left middle finger with damage to nail, initial encounter (principal); W26.8XXA Contact with other sharp object(s), not elsewhere classified, initial encounter; I25.118 Atherosclerotic heart disease of native coronary artery with other forms of angina pectoris; G47.33 Obstructive sleep apnea (adult) (pediatric); E78.5 Hyperlipidemia, unspecified; I42.9 Cardiomyopathy, unspecified; Z87.891 Personal history of nicotine dependence
CPT/HCPCS: 12042; 73130; 90471; 90715; 96365; 96375; 99284; J0690; J2405

== ENCOUNTER 2023-08-29 09:08 | Outpatient (CLI) | payer OTHER, SELFPAY ==
--- NOTE | 2023-08-29 09:14 | XR_ITS ---
FINAL REPORT CLINICAL HISTORY: lt knee pain FINDINGS: LEFT KNEE: Three views of the left knee were obtained. There is no acute fracture or dislocation. There are mild degenerative changes with meniscal calcification. Postoperative changes are seen medially. Soft tissues are unremarkable. IMPRESSION: No acute bony abnormality. Reviewed, Interpreted and Dictated by Carlos Alberto Hendrix III, MD Transcribed by Ada North Authenticated and [facility]
--- NOTE | 2023-08-29 09:14 | XR_ITS ---
FINAL REPORT CLINICAL HISTORY: Bilateral Knee Pain FINDINGS: RIGHT KNEE 3 views of the right knee were obtained. There is no acute fracture or dislocation. There are mild degenerative changes and meniscal calcification. A small joint effusion is noted. Soft tissues are otherwise unremarkable. IMPRESSION: No acute bony abnormality. Reviewed, Interpreted and Dictated by Carlos Alberto Hendrix III, MD Transcribed by Ada North Authenticated and [facility]
== END 2023-08-29 23:59 ==
LOC: RAD 09:09
PROVIDERS: PCP Family Medicine; Visit Provider Orthopaedic Surgery
DX: M25.561 Pain in right knee (principal); M25.562 Pain in left knee
CPT/HCPCS: 73562

== ENCOUNTER 2023-12-04 14:37 | Outpatient (CLI) | payer OTHER, SELFPAY ==
[2023-12-04 15:50] VITALS: PULSE 83; PULSE 87
[2023-12-04] MEDS: ALBUTEROL 0.083% 2.5 MG/3 ML NEB IH (15:50)
== END 2023-12-04 23:59 | disposition home or self-care (01) ==
LOC: RT 14:38
PROVIDERS: PCP Family Medicine; Visit Provider Nurse Practitioner Family
DX: R06.02 Shortness of breath (principal)
CPT/HCPCS: 94060; 94640; 94726; 94729

== ENCOUNTER 2023-12-08 21:14 | Emergency (ER) | payer OTHER, SELFPAY ==
[2023-12-08 22:03] VITALS: BP 154/79; PULSE 89; RESP 16; TEMP 38.4; O2SAT 97; BMI 43.3
--- NOTE | 2023-12-08 22:07 | XR_ITS ---
PROCEDURE INFORMATION: Exam: XR Chest Exam date and time: 12/08/2023 11:04 PM Age: 58 years old Clinical indication: Pain; Chest pressure; Additional info: Mild chest discomfort TECHNIQUE: Imaging protocol: Radiologic exam of the chest. Views: 2 views. COMPARISON: CT ANGIO CHEST PE PROTOCOL 06/16/2023 3:35 PM FINDINGS: Lungs: No acute cardiopulmonary findings. Pleural spaces: Unremarkable. No pleural effusion. No pneumothorax. Heart/Mediastinum: Unremarkable. No cardiomegaly. Bones/joints: Median sternotomy. IMPRESSION: No acute cardiopulmonary findings.
--- NOTE | 2023-12-08 22:08 | CT_ITS ---
PROCEDURE INFORMATION: Exam: CT Abdomen And Pelvis With Contrast Exam date and time: 12/08/2023 11:01 PM Age: 58 years old Clinical indication: Abdominal pain; Additional info: Rlq through to back pain TECHNIQUE: Imaging protocol: Computed tomography of the abdomen and pelvis with contrast. Radiation optimization: All CT scans at this facility use at least one of these dose optimization techniques: automated exposure control; mA and/or kV adjustment per patient size (includes targeted exams where dose is matched to clinical indication); or iterative reconstruction. Contrast material: ISOVUE; Contrast volume: 75 ml; Contrast route: IV; COMPARISON: CT ABDOMEN PELVIS W CON 07/11/2021 6:38 PM FINDINGS: Tubes, catheters and devices: None noted. Lungs: Lung bases appear clear. Heart: No significant coronary calcifications. No cardiomegaly. No significant pericardial effusion. Liver: Normal. No mass. Gallbladder and bile ducts: Cholecystectomy. No ductal dilation. Pancreas: Normal. No ductal dilation. Spleen: Normal. No splenomegaly. Adrenal glands: Normal. No mass. Kidneys and ureters: Normal. No hydronephrosis. Stomach and bowel: Unremarkable. No obstruction. No mucosal thickening. Appendix: Retrocecal appendix is well visualized. No evidence of appendicitis. Intraperitoneal space: Unremarkable. No free air. No significant fluid collection. Retroperitoneal space: No significant retroperitoneal inflammatory changes are noted. Vasculature: Unremarkable. No abdominal aortic aneurysm. Lymph nodes: Unremarkable. No enlarged lymph nodes. Urinary bladder: Unremarkable as visualized. Reproductive: Unremarkable as visualized. Bones/joints: Unremarkable. No acute fracture. Soft tissues: Unremarkable. IMPRESSION: 1. No CT evidence of appendicitis. 2. Cholecystectomy.
--- NOTE | 2023-12-08 22:09 | ECG_ITS ---
APPROVED REPORT Exam: Resting ECG HR:93 bpm ECG Measurements Heart Rate 93 AXES PA 194 P 87 QRSd 96 QRS 73 QT 360 T 82 QTc 411 Conclusion SINUS RHYTHM NORMAL ECG Electronically signed by : SEPIDEH WU, 12/09/2023 00:02:18
--- NOTE | 2023-12-08 22:16 | ED_ITS ---
Discharge Plan Disposition Patient Disposition: Home, Self-Care Prescriptions Prescriptions: No Action aspirin [Adult Aspirin Regimen] 81 mg tablet,delayed release (DR/EC) 81 mg PO DAILY Farxiga 10 mg tablet 10 mg PO DAILY Januvia 100 mg tablet 100 mg PO DAILY omeprazole 40 mg capsule,delayed release(DR/EC) 40 mg PO DAILY 90 Days Qty: 90 montelukast 10 mg tablet 10 mg PO DAILY 90 Days Qty: 90 Super B Complex + C 150 mg tablet 1 tab PO DIRECTED nabumetone 750 mg tablet 750 mg PO BID loratadine 10 mg tablet 10 mg PO DAILY Patient Comments: TAKE 1 TABLET BY MOUTH ONCE DAILY insulin lispro protamin-lispro [Humalog Mix 75-25 KwikPen] 100 unit/mL (75-25) insulin pen 60 unit SQ BID sucralfate 1 gram tablet 1 g PO BID amlodipine 10 mg tablet 10 mg PO DAILY albuterol sulfate 90 mcg/actuation HFA aerosol inhaler 1 - 2 puff inhalation Q6H PRN (Reason: prior to activity) 30 Days Qty: 8.5 2RF losartan 100 mg tablet See Rx Instructions .ROUTE .COMPLEX Qty: 90 3RF Dose Instruction: Take 1 tablet by mouth once daily Rx Instructions: Take 1 tablet by mouth once daily famotidine [Pepcid] 40 mg tablet 40 mg PO DAILY Qty: 30 3RF (DME) Dexcom G6 Transmitter Device See Rx Instructions .Route Qty: 1 0RF Rx Instructions: As directed spironolactone 25 mg tablet 25 mg PO BID Qty: 60 7RF Repatha SureClick 140 mg/mL pen injector See Rx Instructions .ROUTE .COMPLEX Qty: 6 4RF Dose Instruction: INJECT 140 MG UNDER THE SKIN EVERY 2 WEEKS Rx Instructions: INJECT 140 MG UNDER THE SKIN EVERY 2 WEEKS ranolazine 500 mg tablet extended release 12 hr See Rx Instructions .ROUTE .COMPLEX Qty: 60 6RF Dose Instruction: Take 1 tablet by mouth twice daily Rx Instructions: Take 1 tablet by mouth twice daily levofloxacin 500 mg tablet 500 mg PO DAILY 5 Days Qty: 5 0RF furosemide 40 MG tablet 40 mg PO DAILY Referrals Follow up/Referrals: Lela Sánchez MD [Primary Care Provider] - See instructions Activity Restrictions/Add. Instructions Additional Instructions/Restrictions: Please remain hydrated. Please follow-up with your primary care provider. Please return to the emergency department if you develop any new or worsening symptoms or become concerned for your health. Clinical Impressions Clinical Impression: Acute infectious diarrhea, Abdominal pain Instructions Patient Instructions: DI for Diarrhea and Traveler's Diarrhea -- Adult, DI for Diarrhea and Traveler's Diarrhea -- Child, DI for Nausea -- Adult, DI for Nausea -- Child Discharge ED Provider: Seth Corona General Adult HPI <Samuel Villalobos MD - Last Filed: 12/08/23 23:40> General Chief complaint: Nausea/Vomiting/Diarrhea Stated complaint: diarrhea, body aches, fever Time Seen by Provider: 12/08/23 22:00 Mode of Arrival: Family Vehicle Source of Information: Patient Limitations: No Limitations Description of Symptoms (Recalled from ER Triage Doc. by RN): 58 YO MALE PRESENTS WITH CC OF DIARRHEA, NAUSEA, AND ABD DISCOMFORT, ONSET LASTNIGHT; IS FEVERISH, UNTREATED; NO RECENT SICK CONTACTS. UOP OK. HASN'T TAKEN HIS DAILY MEDS OR PRN MEDS. STATES HE IS MISERABLE . History of Present Illness HPI narrative: Patient is a 58-year-old male past medical history of coronary artery disease status post CABG, previous ureterolithiasis who presents emergency department for evaluation of right lower back pain and right flank pain radiating into his right lower quadrant. Onset was acute, over the last 24 to 48 hours. There is associated nausea, nonbloody diarrhea. No dysuria. Due to persistent symptoms and global weakness he presents here for continued evaluation. Related Data Home Medications Medication Instructions Recorded Confirmed montelukast 10 mg tablet 10 mg PO DAILY allergies 90 days 12/06/17 11/26/23 ##90 omeprazole 40 mg capsule,delayed 40 mg PO DAILY GERD 90 days ##90 12/06/17 11/26/23 release vitamin B comp with C no.4 150 mg 1 tab PO DIRECTED Supplement 03/21/18 11/26/23 tablet (Super B Complex + C) aspirin 81 mg tablet,delayed 81 mg PO DAILY Heart disease 07/23/19 11/26/23 release (Adult Aspirin Regimen) nabumetone 750 mg tablet 750 mg PO BID pain 12/11/19 11/26/23 furosemide 40 mg tablet 40 mg PO DAILY Heart disease 12/30/20 11/26/23 insulin lispro protamine-lispro 60 unit SQ BID 07/20/22 11/26/23 100 unit/mL (75-25) subcutaneous pen (Humalog Mix 75-25 KwikPen) loratadine 10 mg tablet 10 mg PO DAILY 07/20/22 11/26/23 dapagliflozin propanediol 10 mg 10 mg PO DAILY 11/22/22 11/26/23 tablet (Farxiga) sitagliptin phosphate 100 mg 100 mg PO DAILY 11/22/22 11/26/23 tablet (Januvia) amlodipine 10 mg tablet 10 mg PO DAILY 05/28/23 11/26/23 sucralfate 1 gram tablet 1 g PO BID 05/28/23 11/26/23 Previous Rx's Medication Instructions Recorded losartan 100 mg tablet See Rx Instructions .Route 12/19/22 .COMPLEX #90 tabs famotidine 40 mg tablet (Pepcid) 40 mg PO DAILY #30 tabs 03/07/23 blood-glucose transmitter (Dexcom #1 ea 04/19/23 G6 Transmitter device) spironolactone 25 mg tablet 25 mg PO BID Fluid #60 tabs 05/01/23 evolocumab 140 mg/mL subcutaneous See Rx Instructions .Route 05/08/23 pen injector (Repatha SureClick) .COMPLEX #6 mL albuterol sulfate 90 mcg/actuation 1 - 2 puff inhalation Q6H PRN 05/28/23 aerosol inhaler prior to activity 30 days #8.5 grams ranolazine 500 mg tablet,extended See Rx Instructions .Route 06/07/23 release,12 hr .COMPLEX #60 tabs levofloxacin 500 mg tablet 500 mg PO DAILY 5 days #5 tabs 10/07/23 Allergies Allergy/AdvReac Type Severity Reaction Status Date / Time Penicillins [PENICILLINS] Allergy Severe SORES IN Verified 11/26/23 10:34 MOUTH shellfish derived Allergy Verified 11/26/23 10:34 TERE Inhibitors AdvReac Intermediate cough Verified 11/26/23 10:34 atorvastatin AdvReac Intermediate myalgia Verified 11/26/23 10:34 rosuvastatin [From Crestor] AdvReac Intermediate myalgia Verified 11/26/23 10:34 PFS <Samuel Villalobos MD - Last Filed: 12/08/23 23:40> [facility] Disclaimer: The information contained in this section may have been updated after the patient was seen, as this information can be updated by other users. Medical History (Updated 12/09/23 @ 01:15 by Seth Corona MD) Pulmonary nodules SOB (shortness of breath) on exertion Erectile dysfunction Typical angina Atypical chest pain Cardiomyopathy Chest pain SIMBA on CPAP On amiodarone therapy HLD (hyperlipidemia) CAD (coronary artery disease) Surgical History S/P CABG x 2 S/P left atrial appendage ligation Social History Smoking Status: Unknown if ever smoked second hand exposure: Yes alcohol intake: never counseling provided: none substance use type: denies use current occupational status: disabled Travel in the last 8 weeks: Inside the [place] household members: family housing: house current occupation: [employer] current occupational exposures/hazards: No caffeine: No <Samuel Villalobos MD - Last Filed: 12/08/23 23:40> ROS Obtained: Yes Systems reviewed as appropriate & no additional complaints except as documented Physical Exam <Samuel Villalobos MD - Last Filed: 12/08/23 23:40> General General appearance: alert and in no apparent distress Head Head exam: atraumatic and normocephalic Eye Eye exam: Present PERRL ENT ENT exam: Present mucous membranes moist Neck Neck exam: Present normal inspection Chest Chest inspection: Present normal inspection and symmetric chest wall rise Respiratory Respiratory exam: Present normal lung sounds bilaterally; Absent respiratory distress Cardiovascular Cardiovascular exam: Present regular rate and normal rhythm Abdominal Exam Abdominal exam: Present soft and tenderness (Right lower quadrant, right flank) Extremities Exam Extremities exam: Present normal inspection Back Exam Back exam: Present tenderness (Right lumbar paraspinal, no midline tenderness) Neurological Exam Neurological exam: Present alert Psychiatric Psychiatric exam: Present normal affect Skin Skin exam: Present warm and dry Medical Decision Making <Samuel Villalobos MD - Last Filed: 12/08/23 23:40> Bernardo Inquiry Pt receiving controlled substance: No Vital Signs: 12/08/23 22:03 12/08/23 23:00 12/08/23 23:31 Temperature 101.1 F H Temperature Source Oral Pulse Rate 90 86 Pulse Rate [Right Brachial] 89 Respiratory Rate 16 16 12 Blood Pressure 144/77 H 146/74 H Blood Pressure [Right Arm] 154/79 H Blood Pressure Mean 109 100 Blood Pressure Mean [Right Arm] 104 Blood Pressure Source Blood Pressure Source [Right Arm] Automatic Cuff Blood Pressure Position Blood Pressure Position [Right Arm] Sitting 02 Sat by Pulse Oximetry 97 90 L 96 Oxygen Delivery Method Room Air Room Air Room Air 12/09/23 01:37 Temperature 98.0 F Temperature Source Oral Pulse Rate 83 Pulse Rate [Right Brachial] Respiratory Rate 18 Blood Pressure 146/74 H Blood Pressure [Right Arm] Blood Pressure Mean Blood Pressure Mean [Right Arm] Blood Pressure Source Automatic Cuff Blood Pressure Source [Right Arm] Blood Pressure Position Supine Blood Pressure Position [Right Arm] 02 Sat by Pulse Oximetry Oxygen Delivery Method Room Air Lab Data Lab Results 12/08/23 22:00: WBC 7.9, RBC 5.50, Hgb 16.8, Hct 50.2, MCV 91.3, MCH 30.6, MCHC 33.5, RDW 14.4, Plt Count 195, MPV 7.8, Neut % (Auto) 83.6 H, Lymph % (Auto) 9.2 L, [place] % (Auto) 5.5, Eos % (Auto) 0.9, Baso % (Auto) 0.8, Neut # (Auto) 6.6, Lymph # (Auto) 0.7, [place] # (Auto) 0.4, Eos # (Auto) 0.1, Baso # (Auto) 0.1, Sodium 136, Potassium 3.9, Chloride 98, Carbon Dioxide 25, Anion Gap 16.9 H, BUN 23 H, Creatinine 0.80, Estimated Creat Clear 130, Estimated GFR 99, Est GFR ( Amer) 120, Glucose 214 H, Calcium 9.4, Total Bilirubin 1.4 H, AST 30, ALT 26, Alkaline Phosphatase 78, Troponin I < 0.01, Total Protein 7.9, Albumin 4.3, Globulin 3.6 H, Albumin/Globulin Ratio 1.2, Lipase 27 12/08/23 22:21: VBG pH 7.42 H, VBG pCO2 35.9, VBG pO2 59.6 H, VBG HCO3 22.5 L, VBG Total CO2 23.6, VBG O2 Saturation 90.2 H, VBG Base Excess -2.1, VBG Lactic Acid 1.7 12/09/23 00:30: Urine Color Yellow, Urine Appearance Clear, Urine pH 6.0, Ur Specific [place] 1.020, Urine Protein 1+, Urine Glucose (UA) 2+, Urine Ketones 2+, Urine Blood Negative, Urine Nitrate Negative, Urine Bilirubin 2+ A, Urine Urobilinogen 0.2, Ur Leukocyte Esterase Negative, Urine RBC None, Urine WBC Occasional, Ur Squamous Epith Cells Occasional, Urine Bacteria Trace, Urine Mucus Trace 12/08/23 22:00 12/08/23 22:00 Orders (Tests/Meds): ED MEDICATIONS Discontinued Medications Generic Name Dose Route Start Last Admin Trade Name Freq PRN Reason Stop Dose Admin Acetaminophen 1,000 mg 12/08/23 22:10 12/08/23 22:20 Acetaminophen 1,000mg/100ml Vial IV 12/08/23 22:11 1,000 mg ONCE ONE Administration Lactated Ringer's 1,000 mls @ 999 mls/hr 12/08/23 22:08 12/08/23 22:18 Lactated Ringer's 1000 Ml Bag IV 12/08/23 23:08 999 mls/hr .Q1H1M ONE Administration Ketorolac Tromethamine 30 mg 12/08/23 22:08 12/08/23 22:20 Ketorolac 30mg/Ml Vial IV 12/08/23 22:09 30 mg ONCE ONE Administration Morphine Sulfate 4 mg 12/08/23 22:08 12/08/23 22:20 Morphine 4mg/Ml Syringe IV 12/08/23 22:09 4 mg ONCE ONE Administration Ondansetron HCl 4 mg 12/08/23 22:24 12/08/23 22:25 Ondansetron 4mg/2ml Vial IV 12/08/23 22:25 4 mg ONCE ONE Administration ORDERS Category Date Time Status CT abdomen pelvis w con Stat Cat Scan 12/08/23 22:08 Completed Chest XR 2 view (NOT portable) [XR chest 2V] Stat Exams 12/08/23 22:07 Completed Complete Blood Count Auto Diff Stat Lab 12/08/23 22:00 Completed Comprehensive Metabolic Panel Stat Lab 12/08/23 22:00 Completed Diarrhea 23 Panel, PCR Stat Lab 12/09/23 01:44 Received Lipase Stat Lab 12/08/23 22:00 Completed Troponin I Q3H Lab 12/09/23 01:15 Ordered Troponin I Q3H Lab 12/09/23 04:15 Ordered Troponin I Stat Lab 12/08/23 22:00 Completed Urinalysis and Microscopic Stat Lab 12/09/23 00:30 Completed VBG [Venous Blood Gas] Stat RT 12/08/23 22:21 Completed ECG Data Tracing #1: Independently interpreted by me, rate is 93, rhythm is regular, axis is normal, no ST elevation in anatomical contiguous leads, QTc 411. Medical Decision Narrative: In summary patient is a 58-year-old male with past medical history described above who presents emergency department for evaluation of right flank, right low back, right lower quadrant abdominal pain. Patient is hemodynamically stable nontoxic-appearing upon arrival, febrile temperature 101.1 ?F. Differential diagnosis includes appendicitis, ureterolithiasis, colitis, viral syndrome, among others. Workup will be conducted with hematologic labs, urinalysis, CT abdomen pelvis IV contrast. Initial interventions include crystalloid bolus, Tylenol, Toradol, Zofran. Initial workup reviewed by me, hematologic labs have no significant leukocytosis, no acidosis, no RICKY or critical electrolyte abnormality, mildly elevated anion gap, glucose is 214, mildly elevated total bilirubin, normal lipase. CT imaging conducted and pending at time of transfer of care to the oncoming physician, Dr. Corona. <Seth Corona MD - Last Filed: 12/09/23 01:55> Vital Signs: 12/08/23 22:03 12/08/23 23:00 12/08/23 23:31 Temperature 101.1 F H Temperature Source Oral Pulse Rate 90 86 Pulse Rate [Right Brachial] 89 Respiratory Rate 16 16 12 Blood Pressure 144/77 H 146/74 H Blood Pressure [Right Arm] 154/79 H Blood Pressure Mean 109 100 Blood Pressure Mean [Right Arm] 104 Blood Pressure Source Blood Pressure Source [Right Arm] Automatic Cuff Blood Pressure Position Blood Pressure Position [Right Arm] Sitting 02 Sat by Pulse Oximetry 97 90 L 96 Oxygen Delivery Method Room Air Room Air Room Air 12/09/23 01:37 Temperature 98.0 F Temperature Source Oral Pulse Rate 83 Pulse Rate [Right Brachial] Respiratory Rate 18 Blood Pressure 146/74 H Blood Pressure [Right Arm] Blood Pressure Mean Blood Pressure Mean [Right Arm] Blood Pressure Source Automatic Cuff Blood Pressure Source [Right Arm] Blood Pressure Position Supine Blood Pressure Position [Right Arm] 02 Sat by Pulse Oximetry Oxygen Delivery Method Room Air Lab Data Lab Results 12/08/23 22:00: WBC 7.9, RBC 5.50, Hgb 16.8, Hct 50.2, MCV 91.3, MCH 30.6, MCHC 33.5, RDW 14.4, Plt Count 195, MPV 7.8, Neut % (Auto) 83.6 H, Lymph % (Auto) 9.2 L, [place] % (Auto) 5.5, Eos % (Auto) 0.9, Baso % (Auto) 0.8, Neut # (Auto) 6.6, Lymph # (Auto) 0.7, [place] # (Auto) 0.4, Eos # (Auto) 0.1, Baso # (Auto) 0.1, Sodium 136, Potassium 3.9, Chloride 98, Carbon Dioxide 25, Anion Gap 16.9 H, BUN 23 H, Creatinine 0.80, Estimated Creat Clear 130, Estimated GFR 99, Est GFR ( Amer) 120, Glucose 214 H, Calcium 9.4, Total Bilirubin 1.4 H, AST 30, ALT 26, Alkaline Phosphatase 78, Troponin I < 0.01, Total Protein 7.9, Albumin 4.3, Globulin 3.6 H, Albumin/Globulin Ratio 1.2, Lipase 27 12/08/23 22:21: VBG pH 7.42 H, VBG pCO2 35.9, VBG pO2 59.6 H, VBG HCO3 22.5 L, VBG Total CO2 23.6, VBG O2 Saturation 90.2 H, VBG Base Excess -2.1, VBG Lactic Acid 1.7 12/09/23 00:30: Urine Color Yellow, Urine Appearance Clear, Urine pH 6.0, Ur Specific [place] 1.020, Urine Protein 1+, Urine Glucose (UA) 2+, Urine Ketones 2+, Urine Blood Negative, Urine Nitrate Negative, Urine Bilirubin 2+ A, Urine Urobilinogen 0.2, Ur Leukocyte Esterase Negative, Urine RBC None, Urine WBC Occasional, Ur Squamous Epith Cells Occasional, Urine Bacteria Trace, Urine Mucus Trace Orders (Tests/Meds): ED MEDICATIONS Discontinued Medications Generic Name Dose Route Start Last Admin Trade Name Freq PRN Reason Stop Dose Admin Acetaminophen 1,000 mg 12/08/23 22:10 12/08/23 22:20 Acetaminophen 1,000mg/100ml Vial IV 12/08/23 22:11 1,000 mg ONCE ONE Administration Lactated Ringer's 1,000 mls @ 999 mls/hr 12/08/23 22:08 12/08/23 22:18 Lactated Ringer's 1000 Ml Bag IV 12/08/23 23:08 999 mls/hr .Q1H1M ONE Administration Ketorolac Tromethamine 30 mg 12/08/23 22:08 12/08/23 22:20 Ketorolac 30mg/Ml Vial IV 12/08/23 22:09 30 mg ONCE ONE Administration Morphine Sulfate 4 mg 12/08/23 22:08 12/08/23 22:20 Morphine 4mg/Ml Syringe IV 12/08/23 22:09 4 mg ONCE ONE Administration Ondansetron HCl 4 mg 12/08/23 22:24 12/08/23 22:25 Ondansetron 4mg/2ml Vial IV 12/08/23 22:25 4 mg ONCE ONE Administration ORDERS Category Date Time Status CT abdomen pelvis w con Stat Cat Scan 12/08/23 22:08 Completed Chest XR 2 view (NOT portable) [XR chest 2V] Stat Exams 12/08/23 22:07 Completed Complete Blood Count Auto Diff Stat Lab 12/08/23 22:00 Completed Comprehensive Metabolic Panel Stat Lab 12/08/23 22:00 Completed Diarrhea 23 Panel, PCR Stat Lab 12/09/23 01:44 Received Lipase Stat Lab 12/08/23 22:00 Completed Troponin I Q3H Lab 12/09/23 01:15 Ordered Troponin I Q3H Lab 12/09/23 04:15 Ordered Troponin I Stat Lab 12/08/23 22:00 Completed Urinalysis and Microscopic Stat Lab 12/09/23 00:30 Completed VBG [Venous Blood Gas] Stat RT 12/08/23 22:21 Completed Medical Decision Narrative: In summary patient is a 58-year-old male with past medical history described above who presents emergency department for evaluation of right flank, right low back, right lower quadrant abdominal pain. Patient is hemodynamically stable nontoxic-appearing upon arrival, febrile temperature 101.1 ?F. Differential diagnosis includes appendicitis, ureterolithiasis, colitis, viral syndrome, among others. Workup will be conducted with hematologic labs, urinalysis, CT abdomen pelvis IV contrast. Initial interventions include crystalloid bolus, Tylenol, Toradol, Zofran. Initial workup reviewed by me, hematologic labs have no significant leukocytosis, no acidosis, no RICKY or critical electrolyte abnormality, mildly elevated anion gap, glucose is 214, mildly elevated total bilirubin, normal lipase. CT imaging conducted and pending at time of transfer of care to the oncoming physician, Dr. Corona. Cj BHATT: I assumed care of the patient at the time of handoff from the prior provider. On reassessment patient reports that he feels better. CT imaging was independently interpreted by me and shows no evidence of appendicitis, ureterolithiasis, or other intra-abdominal pathology to explain patient's symptoms. I had an interactive discussion with patient regarding his presentation. He reports to me that he has had extensive watery diarrhea for the last couple of days. He has not been on any antibiotics recently. One of his other family members is also having diarrhea. He reports it is nonbloody. He reports the volume and frequency of diarrhea has slowed this evening. Given this, patient presentation is most consistent with acute infectious diarrhea. Patient produced a stool sample to assess for C. difficile. Patient was discharged in stable condition with stool sample pending. Critical Care <Samuel Villalobos MD - Last Filed: 12/08/23 23:40> Critical Care Time Critical Care Time: No
[2023-12-08] MEDS: LACTATED RINGERS 1000ML 1,000 ML 999 ML IV (22:18)
[2023-12-08 22:19] LABS: Basophils # 0.1 K/mm3 (0-0.2); Basophils % 0.8 % (0.1-2.0); Eosinophils # 0.1 K/mm3 (0.0-0.4); Eosinophils % 0.9 % (0.1-12.0); Hematocrit 50.2 % (42.0-52.0); Hemoglobin 16.8 g/dL (14.1-18.0); Lymphocytes # 0.7 K/mm3 (0.7-4.5); Lymphocytes % 9.2 % (10-50); Mean Corpuscular HGB Conc 33.5 g/dL (31.8-35.4); Mean Corpuscular Hemoglobin 30.6 pg (27.0-31.2); Mean Corpuscular Volume 91.3 fl (80-94); Mean Platelet Volume 7.8 fl (7.4-10.4); Monocytes # 0.4 K/mm3 (0.1-1.0); Monocytes % 5.5 % (1.7-9.3); Neutrophils # 6.6 K/mm3 (1.8-7.8); Neutrophils % 83.6 % (37.0-80.0); Platelet Count 195 K/mm3 (142-424); Red Cell Distribution Width 14.4 % (11.5-17.5); White Blood Count 7.9 K/mm3 (4.8-10.8)
[2023-12-08] MEDS: KETOROLAC 30MG/ML VIAL 30 MG IV (22:20)
[2023-12-08] MEDS: ACETAMINOPHEN 1,000MG/100ML VIAL 1000 MG IV (22:20)
[2023-12-08] MEDS: MORPHINE 4MG/ML SYRINGE 4 MG IV (22:20)
[2023-12-08 22:24] LABS: Alanine Aminotransferase 26 U/L (12-78); Albumin Level 4.3 g/dl (3.5-5.0); Albumin/Globulin Ratio 1.2 (1.1-1.8); Alkaline Phosphatase 78 U/L (38-126); Anion Gap 16.9 mEq/L (5-15); Aspartate Amino Transferase 30 U/L (17-59); Bilirubin,Total 1.4 mg/dl (0.2-1.3); Blood Urea Nitrogen 23 mg/dl (9-20); Calcium 9.4 mg/dl (8.4-10.2); Carbon Dioxide 25 mmol/L (22.0-30.0); Chloride 98 mmol/L (98-107); Creatinine Clearance Estimated 130 mL/min (50-200); Estimated Glomerular Filt Rate 99 ml/min (>60); GFR (African American) 120 ML/MIN (>60); Globulin 3.6 g/dL (1.3-3.2); Glucose 214 mg/dl (74-100); Potassium 3.9 mmoL/L (3.5-5.1); Sodium 136 mmol/L (136-145); Total Protein,Serum 7.9 g/dl (6.3-8.2)
[2023-12-08] MEDS: ONDANSETRON 4MG/2ML VIAL 4 MG IV (22:25)
[2023-12-08 22:31] LABS: Lipase 27 U/L (23-300)
[2023-12-08 22:37] LABS: Troponin I < 0.01 ng/ml (0.00-0.034)
[2023-12-08 22:47] LABS: Lactate Venous 1.7 mmol/L (0.4-2.0); VBG Base Excess -2.1 mmol/L (-2.4-2.3); VBG HCO3 22.5 mmol/L (23-30); VBG Oxygen Saturation 90.2 % (50-70); VBG PCO2 35.9 mmol/L (35-51); VBG PH 7.42 mmol/L (7.31-7.41); VBG PO2 59.6 mmol/L (28-40); VBG Total CO2 23.6 mmol/L (23-27)
[2023-12-08 23:00] VITALS: BP 144/77; PULSE 90; RESP 16; O2SAT 90
--- NOTE | 2023-12-08 23:03 | PC.NURSE ---
patient to radiology
[2023-12-08 23:31] VITALS: BP 146/74; PULSE 86; RESP 12; O2SAT 96
[2023-12-09 00:37] LABS: Microscopic, Urine URINE MICROSCOPIC (MICROSCOPIC)
[2023-12-09 00:38] LABS: Appearance,Urine CLEAR (Clear); Blood, Urine Negative (Negative); Color,Urine YELLOW (Yellow); Glucose,Urine (UA) 2+ (Negative); Ketones,Urine 2+ (Negative); Leukocyte Esterase,Urine Negative (Negative); Nitrate,Urine Negative (Negative); Protein,Urine 1+ (Negative); Urobilinogen,Urine 0.2 EU/dl (0.2)
[2023-12-09 00:40] LABS: Bilirubin,Urine 2+ (Negative)
[2023-12-09 00:55] LABS: Bacteria,Urine Trace /lpf; Mucus,Urine Trace /lpf; Squamous Epithelial Cell,Urine Occasional #/hpf (0-5); WBC,Urine Occasional #/hpf (0-3)
[2023-12-09 01:37] VITALS: BP 146/74; PULSE 83; RESP 18; TEMP 36.7; O2SAT 94
[2023-12-09 01:46] LABS: Adenovirus F 40/41, stool Not Detected (NotDetected); Astrovirus Not Detected (NotDetected); Clostridium Difficile A/B, PCR Not Detected (NotDetected); Cryptosporidium Not Detected (NotDetected); Cyclospora Cayetanesis Not Detected (NotDetected); Entamoeba histolytica Not Detected (NotDetected); Enteroaggregative E coli Not Detected (NotDetected); Enteropathogenic E coli Not Detected (NotDetected); Enterotoxigenic E coli Not Detected (NotDetected); Giardia lamblia Not Detected (NotDetected); Norovirus Not Detected (NotDetected); Plesimonas Shigalloides, PCR Not Detected (NotDetected); Rotavirus A Not Detected (NotDetected); Salmonella, PCR Not Detected (NotDetected); Sapovirus Not Detected (NotDetected); Shiga-like toxin E coli Not Detected (NotDetected); Shigella Enterovasive E coli Not Detected (NotDetected); Vibrio Cholerae Not Detected (NotDetected); Vibrio, PCR Not Detected (NotDetected); Yersinia Entercolitica, PCR Not Detected (NotDetected)
[2023-12-09 04:35] LABS: Campylobacter Detected (NotDetected)
--- NOTE | 2023-12-09 04:38 | PC.NURSE ---
RECEIVED NOTIFICATION OF CAMPLOBACTER IN STOOL. NOTIFIED MD GALINDO.
== END 2023-12-09 01:54 | disposition home or self-care (01) ==
PROVIDERS: Emergency Medicine; Emergency Provider Emergency Medicine; PCP Family Medicine
DX: A04.5 Campylobacter enteritis (principal); R10.31 Right lower quadrant pain; R19.7 Diarrhea, unspecified; R11.0 Nausea; R50.9 Fever, unspecified; E11.65 Type 2 diabetes mellitus with hyperglycemia; M54.59 Other low back pain; I11.9 Hypertensive heart disease without heart failure; I25.119 Atherosclerotic heart disease of native coronary artery with unspecified angina pectoris; E78.5 Hyperlipidemia, unspecified; Z95.1 Presence of aortocoronary bypass graft; Z79.4 Long term (current) use of insulin; Z79.84 Long term (current) use of oral hypoglycemic drugs
CPT/HCPCS: 71046; 74177; 80053; 81001; 82803; 83690; 84484; 85025; 87507; 93005; 96361; 96374; 96375; 99285; J0131; J2405

== ENCOUNTER 2023-12-10 16:57 | Emergency (ER) | payer OTHER, SELFPAY ==
[2023-12-10 16:59] VITALS: BP 115/75; PULSE 85; RESP 20; TEMP 36.6; O2SAT 97; BMI 43.3
--- NOTE | 2023-12-10 17:16 | HMH.EDGENADL ---
Discharge Plan Disposition Patient Disposition: Home, Self-Care Condition: Good Prescriptions Prescriptions: New metoclopramide HCl [Reglan] 5 mg tablet 5 mg PO Q8HP PRN (Reason: nausea) Qty: 14 0RF azithromycin 500 mg tablet 500 mg PO DAILY 3 Days Qty: 3 0RF No Action aspirin [Adult Aspirin Regimen] 81 mg tablet,delayed release (DR/EC) 81 mg PO DAILY Farxiga 10 mg tablet 10 mg PO DAILY Januvia 100 mg tablet 100 mg PO DAILY omeprazole 40 mg capsule,delayed release(DR/EC) 40 mg PO DAILY 90 Days Qty: 90 montelukast 10 mg tablet 10 mg PO DAILY 90 Days Qty: 90 Super B Complex + C 150 mg tablet 1 tab PO DIRECTED nabumetone 750 mg tablet 750 mg PO BID loratadine 10 mg tablet 10 mg PO DAILY Patient Comments: TAKE 1 TABLET BY MOUTH ONCE DAILY insulin lispro protamin-lispro [Humalog Mix 75-25 KwikPen] 100 unit/mL (75-25) insulin pen 60 unit SQ BID sucralfate 1 gram tablet 1 g PO BID amlodipine 10 mg tablet 10 mg PO DAILY albuterol sulfate 90 mcg/actuation HFA aerosol inhaler 1 - 2 puff inhalation Q6H PRN (Reason: prior to activity) 30 Days Qty: 8.5 2RF losartan 100 mg tablet See Rx Instructions .ROUTE .COMPLEX Qty: 90 3RF Dose Instruction: Take 1 tablet by mouth once daily Rx Instructions: Take 1 tablet by mouth once daily famotidine [Pepcid] 40 mg tablet 40 mg PO DAILY Qty: 30 3RF (DME) Anzucom G6 Transmitter Device See Rx Instructions .Route Qty: 1 0RF Rx Instructions: As directed Repatha SureClick 140 mg/mL pen injector See Rx Instructions .ROUTE .COMPLEX Qty: 6 4RF Dose Instruction: INJECT 140 MG UNDER THE SKIN EVERY 2 WEEKS Rx Instructions: INJECT 140 MG UNDER THE SKIN EVERY 2 WEEKS ranolazine 500 mg tablet extended release 12 hr See Rx Instructions .ROUTE .COMPLEX Qty: 60 6RF Dose Instruction: Take 1 tablet by mouth twice daily Rx Instructions: Take 1 tablet by mouth twice daily levofloxacin 500 mg tablet 500 mg PO DAILY 5 Days Qty: 5 0RF spironolactone 25 mg tablet See Rx Instructions .ROUTE .COMPLEX Qty: 90 3RF Dose Instruction: TAKE 1 TABLET BY MOUTH TWICE DAILY FOR FLUID Rx Instructions: TAKE 1 TABLET BY MOUTH TWICE DAILY FOR FLUID furosemide 40 MG tablet 40 mg PO DAILY Referrals Follow up/Referrals: Lela Sánchez MD [Primary Care Provider] - See instructions Activity Restrictions/Add. Instructions Additional Instructions/Restrictions: You were evaluated in the emergency department today. Please pharmacy picking technician your prescriptions at the pharmacy and take them as prescribed. Eat a bland diet until your symptoms have resolved. We recommend a brat diet consisting of bananas, rice, applesauce, and toast. Keep an eye on your blood sugar at home. Continue taking your insulin. Follow-up closely with your primary care provider. Take Tylenol and ibuprofen at home as needed for pain. Return to the emergency department for any new or worsening symptoms. Clinical Impressions Clinical Impression: Campylobacter diarrhea, Hyperglycemia Instructions Patient Instructions: DI for Diarrhea and Traveler's Diarrhea -- Adult, DI for Acute Abdominal Pain Discharge ED Provider: Tresa Canales General Adult HPI General Chief complaint: Abdominal Pain Stated complaint: abdominal pain,dizzy,Diarrhea Time Seen by Provider: 12/10/23 17:00 Mode of Arrival: Ambulatory Source of Information: Patient Limitations: No Limitations Description of Symptoms (Recalled from ER Triage Doc. by RN): Patient presents to ED with diarrhea, abd pain, and dizziness. Patient was seen in ED on saturday night for same symptoms and not getting any better. History of Present Illness HPI narrative: This patient is a 58-year-old male with a history of insulin-dependent diabetes, CAD status post CABG, atrial fibrillation, hypertension, hyperlipidemia, and peripheral neuropathy presenting to the emergency department for evaluation with concern for persistent, profuse watery diarrhea since evaluation here on 12/08/2023. Patient notes that he has intermittently been having abdominal pain, mostly yesterday after eating chicken nuggets. The pain is since resolved, but he has been up all night and all day today going to the bathroom multiple times in an hour with loose, watery bowel movements. No nausea, vomiting, or other concerns noted. No current abdominal pain. On medical record review, he was seen here 2 days ago and tested positive for Campylobacter in his stool. CT scan at that time was obtained and is reassuring. Of note, he notes that he has not taken his medication in a few days, including his insulin. He states he is afraid to since his not been able to eat or drink. Related Data Home Medications Medication Instructions Recorded Confirmed montelukast 10 mg tablet 10 mg PO DAILY allergies 90 days 12/06/17 11/26/23 ##90 omeprazole 40 mg capsule,delayed 40 mg PO DAILY GERD 90 days ##90 12/06/17 11/26/23 release vitamin B comp with C no.4 150 mg 1 tab PO DIRECTED Supplement 03/21/18 11/26/23 tablet (Super B Complex + C) aspirin 81 mg tablet,delayed 81 mg PO DAILY Heart disease 07/23/19 11/26/23 release (Adult Aspirin Regimen) nabumetone 750 mg tablet 750 mg PO BID pain 12/11/19 11/26/23 furosemide 40 mg tablet 40 mg PO DAILY Heart disease 12/30/20 11/26/23 insulin lispro protamine-lispro 60 unit SQ BID 07/20/22 11/26/23 100 unit/mL (75-25) subcutaneous pen (Humalog Mix 75-25 KwikPen) loratadine 10 mg tablet 10 mg PO DAILY 07/20/22 11/26/23 dapagliflozin propanediol 10 mg 10 mg PO DAILY 11/22/22 11/26/23 tablet (Farxiga) sitagliptin phosphate 100 mg 100 mg PO DAILY 11/22/22 11/26/23 tablet (Januvia) amlodipine 10 mg tablet 10 mg PO DAILY 05/28/23 11/26/23 sucralfate 1 gram tablet 1 g PO BID 05/28/23 11/26/23 Previous Rx's Medication Instructions Recorded losartan 100 mg tablet See Rx Instructions .Route 12/19/22 .COMPLEX #90 tabs famotidine 40 mg tablet (Pepcid) 40 mg PO DAILY #30 tabs 03/07/23 blood-glucose transmitter (Dexcom #1 ea 04/19/23 G6 Transmitter device) evolocumab 140 mg/mL subcutaneous See Rx Instructions .Route 05/08/23 pen injector (Ernestina Rojo) .COMPLEX #6 mL albuterol sulfate 90 mcg/actuation 1 - 2 puff inhalation Q6H PRN 05/28/23 aerosol inhaler prior to activity 30 days #8.5 grams ranolazine 500 mg tablet,extended See Rx Instructions .Route 06/07/23 release,12 hr .COMPLEX #60 tabs levofloxacin 500 mg tablet 500 mg PO DAILY 5 days #5 tabs 10/07/23 azithromycin 500 mg tablet 500 mg PO DAILY 3 days #3 tabs 12/10/23 metoclopramide HCl 5 mg tablet 5 mg PO Q8HP PRN nausea #14 tabs 12/10/23 (Reglan) spironolactone 25 mg tablet See Rx Instructions .Route 12/10/23 .COMPLEX #90 tabs Allergies Allergy/AdvReac Type Severity Reaction Status Date / Time Penicillins [PENICILLINS] Allergy Severe SORES IN Verified 11/26/23 10:34 MOUTH shellfish derived Allergy Verified 11/26/23 10:34 TERE Inhibitors AdvReac Intermediate cough Verified 11/26/23 10:34 atorvastatin AdvReac Intermediate myalgia Verified 11/26/23 10:34 rosuvastatin [From Crestor] AdvReac Intermediate myalgia Verified 11/26/23 10:34 PFSH [facility] Disclaimer: The information contained in this section may have been updated after the patient was seen, as this information can be updated by other users. Medical History (Updated 12/10/23 @ 18:58 by Tresa Canales DO) Pulmonary nodules SOB (shortness of breath) on exertion Erectile dysfunction Typical angina Atypical chest pain Cardiomyopathy Chest pain SIMBA on CPAP On amiodarone therapy HLD (hyperlipidemia) CAD (coronary artery disease) Surgical History S/P CABG x 2 S/P left atrial appendage ligation Social History Smoking Status: Never smoker second hand exposure: Yes alcohol intake: never counseling provided: none substance use type: denies use current occupational status: disabled Travel in the last 8 weeks: Inside the [place] household members: family housing: house current occupation: [employer] current occupational exposures/hazards: No caffeine: No ROS Obtained: Yes All systems reviewed & no additional complaints except as documented Physical Exam General General appearance: alert, in no apparent distress and obese Head Head exam: atraumatic and normocephalic Eye Eye exam: Present normal appearance, PERRL and EOMI ENT ENT exam: Present normal exam, normal oropharynx, mucous membranes moist and normal external ear exam Neck Neck exam: Present normal inspection, full ROM and trachea midline; Absent tenderness Chest Chest inspection: Present normal inspection and symmetric chest wall rise; Absent tenderness Respiratory Respiratory exam: Present normal lung sounds bilaterally; Absent respiratory distress, wheezes, stridor or accessory muscle use Cardiovascular Cardiovascular exam: Present regular rate and normal rhythm Abdominal Exam Abdominal exam: Present soft; Absent distention, tenderness or guarding Extremities Exam Extremities exam: Present normal inspection, full ROM and normal capillary refill; Absent tenderness or edema Back Exam Back exam: Present normal inspection and full ROM; Absent tenderness Neurological Exam Neurological exam: Present alert, oriented X3, CN II-XII intact and normal gait; Absent motor sensory deficit Psychiatric Psychiatric exam: Present normal affect and normal mood Skin Skin exam: Present warm and dry Medical Decision Making Medical Records Medical records reviewed: Yes I reviewed the patient's medical records. Bernardo Inquiry Pt receiving controlled substance: No Vital Signs: 12/10/23 16:59 12/10/23 18:00 12/10/23 19:07 Temperature 97.8 F 98.8 F Temperature Source Oral Oral Pulse Rate 77 70 Pulse Rate [Right Radial] 85 Respiratory Rate 20 20 Blood Pressure 132/79 125/75 Blood Pressure [Right Arm] 115/75 Blood Pressure Mean 89 Blood Pressure Mean [Right Arm] 88 Blood Pressure Source Automatic Cuff Blood Pressure Source [Right Arm] Automatic Cuff Blood Pressure Position Sitting Blood Pressure Position [Right Arm] Sitting 02 Sat by Pulse Oximetry 97 95 Oxygen Delivery Method Room Air Room Air Lab Data Lab results reviewed: Yes I reviewed the patient's lab results. Lab Results 12/10/23 17:13: VBG pH 7.37, VBG pCO2 44.0, VBG pO2 36.8, VBG HCO3 25.0, VBG Total CO2 26.4, VBG O2 Saturation 73.4 H, VBG Base Excess -0.2, VBG Lactic Acid 1.7 12/10/23 17:18: WBC 5.3 D, RBC 5.09, Hgb 15.6, Hct 46.9, MCV 92.1, MCH 30.6, MCHC 33.2, RDW 14.1, Plt Count 186, MPV 8.2, Neut % (Auto) 66.5, Lymph % (Auto) 20.0, [place] % (Auto) 10.5 H, Eos % (Auto) 2.3, Baso % (Auto) 0.7, Neut # (Auto) 3.5, Lymph # (Auto) 1.0, [place] # (Auto) 0.6, Eos # (Auto) 0.1, Baso # (Auto) 0.0, Sodium 135 L, Potassium 3.7, Chloride 101, Carbon Dioxide 28, Anion Gap 9.7, BUN 21 H, Creatinine 0.80, Estimated Creat Clear 130, Estimated GFR 99, Est GFR ( Amer) 120, Glucose 318 H, Lactate 1.3, Calcium 8.9, Magnesium 1.7, Total Bilirubin 0.9, AST 39 D, ALT 41 D, Alkaline Phosphatase 74, Total Protein 7.0, Albumin 3.9, Globulin 3.1, Albumin/Globulin Ratio 1.3, Lipase 35, Acetone Level None detected 12/10/23 17:18 12/10/23 17:18 Orders (Tests/Meds): ED MEDICATIONS Discontinued Medications Generic Name Dose Route Start Last Admin Trade Name Freq PRN Reason Stop Dose Admin Acetaminophen 1,000 mg 12/10/23 17:12 12/10/23 17:24 Acetaminophen 1,000mg/100ml Vial IV 12/10/23 17:13 1,000 mg ONCE ONE Administration Azithromycin 500 mg 12/10/23 18:30 12/10/23 18:34 Azithromycin 250mg Tablet PO 12/10/23 18:31 500 mg ONCE ONE Administration Lactated Ringer's 1,000 mls @ 999 mls/hr 12/10/23 17:12 12/10/23 17:24 Lactated Ringer's 1000 Ml Bag IV 12/10/23 18:12 999 mls/hr .Q1H1M ONE Administration Ketorolac Tromethamine 15 mg 12/10/23 17:12 12/10/23 17:24 Ketorolac 30mg/Ml Vial IV 12/10/23 17:13 15 mg ONCE ONE Administration Metoclopramide HCl 5 mg 12/10/23 18:35 12/10/23 18:36 Metoclopramide Hcl 10mg/2ml Vial IVP 12/10/23 18:36 5 mg ONCE ONE Administration Ondansetron HCl 4 mg 12/10/23 17:12 12/10/23 17:24 Ondansetron 4mg/2ml Vial IV 12/10/23 17:13 4 mg ONCE ONE Administration ORDERS Category Date Time Status Acetone, Serum (Rapid) Stat Lab 12/10/23 17:18 Completed Complete Blood Count Auto Diff Stat Lab 12/10/23 17:18 Completed Comprehensive Metabolic Panel Stat Lab 12/10/23 17:18 Completed Lactic Acid Stat Lab 12/10/23 17:18 Completed Lipase Stat Lab 12/10/23 17:18 Completed Magnesium Stat Lab 12/10/23 17:18 Completed VBG [Venous Blood Gas] Stat RT 12/10/23 17:13 Completed ECG Data Tracing #1: I reviewed this ECG and interpreted as documented below: Normal sinus rhythm with a ventricular rate of [address] changes concerning for ischemia. Normal axis and intervals. ECG initial impression date: 12/10/23 ECG initial impression time: 17:35 Medical Decision Narrative: In summary, this patient is a 58-year-old male presenting to the Emergency Department for evaluation of profuse, watery diarrhea. Differential diagnoses considered include but are not limited to infectious colitis, gastroenteritis, dehydration, electrolyte derangements, DKA. Ruling out the most morbid conditions drove assessment. It should be noted patient's history includes insulin-dependent diabetes which is not at goal therapy. This complicates all aspects of care by increasing patient's risk for morbidity. I reviewed patient's past medical records and noted previous evaluation 2 days ago at which point he tested positive for Campylobacter as per HPI. On exam, the patient is resting comfortably in no acute distress with benign abdominal exam. workup included CBC, CMP, lipase, magnesium, VBG, lactic acid, urinalysis, EKG. He was given a bolus of IV fluids as well as IV Toradol, acetaminophen, and Zofran for symptomatic improvement. Labs were obtained that demonstrated hyperglycemia without other acutely concerning abnormalities. No significant ketones, normal anion gap, and normal VBG. I considered obtaining abdominal imaging, however given that patient just had imaging 2 days ago for similar symptoms and has a benign abdominal exam with reassuring labs, I do not feel that this would liner roll changer. On reassessment, patient had good improvement after administration of IV fluids and Zofran. He continued to have some abdominal spasming, so he was given Reglan. At this time, I had a discussion with him regarding the stool findings of Campylobacter. I advised that it is usually self-limited and resolves on its own, however he feels that his case is very severe and would like to pursue antibiotic treatment. Given this, he was given prescription for azithromycin 500 mg to take daily for 4 days. He was also given prescription for Reglan. At this time, patient was deemed to be appropriate for discharge home with close follow-up with his primary care provider.. The patient was given instructions for close outpatient follow-up, very strict return precautions, and the patient was discharged in stable condition with prescriptions for azithromycin and Reglan. Critical Care Critical Care Time Critical Care Time: No
[2023-12-10] MEDS: LACTATED RINGERS 1000ML 1,000 ML 999 ML IV (17:24)
[2023-12-10] MEDS: ONDANSETRON 4MG/2ML VIAL 4 MG IV (17:24)
[2023-12-10] MEDS: ACETAMINOPHEN 1,000MG/100ML VIAL 1000 MG IV (17:24)
[2023-12-10] MEDS: KETOROLAC 30MG/ML VIAL 15 MG IV (17:24)
[2023-12-10 17:26] LABS: Lactate Venous 1.7 mmol/L (0.4-2.0); VBG Base Excess -0.2 mmol/L (-2.4-2.3); VBG Oxygen Saturation 73.4 % (50-70); VBG PH 7.37 mmol/L (7.31-7.41); VBG PO2 36.8 mmol/L (28-40); VBG Total CO2 26.4 mmol/L (23-27)
--- NOTE | 2023-12-10 17:34 | ECG_ITS ---
APPROVED REPORT Exam: Resting ECG HR:80 bpm ECG Measurements Heart Rate 80 AXES VA 208 P 76 QRSd 100 QRS 69 QT 384 T 70 QTc 420 Conclusion SINUS RHYTHM NORMAL ECG Electronically signed by : MICHAEL BROWN, 12/10/2023 22:42:59
[2023-12-10 17:36] LABS: Chloride 101 mmol/L (98-107); Potassium 3.7 mmoL/L (3.5-5.1); Sodium 135 mmol/L (136-145)
[2023-12-10 17:38] LABS: Alanine Aminotransferase 41 U/L (12-78); Albumin Level 3.9 g/dl (3.5-5.0); Albumin/Globulin Ratio 1.3 (1.1-1.8); Alkaline Phosphatase 74 U/L (38-126); Anion Gap 9.7 mEq/L (5-15); Aspartate Amino Transferase 39 U/L (17-59); Bilirubin,Total 0.9 mg/dl (0.2-1.3); Blood Urea Nitrogen 21 mg/dl (9-20); Calcium 8.9 mg/dl (8.4-10.2); Carbon Dioxide 28 mmol/L (22.0-30.0); Creatinine Clearance Estimated 130 mL/min (50-200); Estimated Glomerular Filt Rate 99 ml/min (>60); GFR (African American) 120 ML/MIN (>60); Globulin 3.1 g/dL (1.3-3.2); Glucose 318 mg/dl (74-100); Lactic Acid 1.3 mmol/L (0.7-2.1); Lipase 35 U/L (23-300); Magnesium 1.7 mg/dl (1.6-2.3)
[2023-12-10 17:42] LABS: Acetone, Serum (Rapid) None Detected (None Detect)
[2023-12-10 17:43] LABS: Basophils % 0.7 % (0.1-2.0); Eosinophils # 0.1 K/mm3 (0.0-0.4); Eosinophils % 2.3 % (0.1-12.0); Hematocrit 46.9 % (42.0-52.0); Hemoglobin 15.6 g/dL (14.1-18.0); Mean Corpuscular HGB Conc 33.2 g/dL (31.8-35.4); Mean Corpuscular Hemoglobin 30.6 pg (27.0-31.2); Mean Corpuscular Volume 92.1 fl (80-94); Mean Platelet Volume 8.2 fl (7.4-10.4); Monocytes # 0.6 K/mm3 (0.1-1.0); Monocytes % 10.5 % (1.7-9.3); Neutrophils # 3.5 K/mm3 (1.8-7.8); Neutrophils % 66.5 % (37.0-80.0); Platelet Count 186 K/mm3 (142-424); Red Blood Count 5.09 M/mm3 (4.60-6.20); Red Cell Distribution Width 14.1 % (11.5-17.5); White Blood Count 5.3 K/mm3 (4.8-10.8)
[2023-12-10 18:00] VITALS: BP 132/79; PULSE 77; O2SAT 95
[2023-12-10] MEDS: AZITHROMYCIN 250MG TABLET 500 MG PO (18:34)
[2023-12-10] MEDS: METOCLOPRAMIDE HCL 10MG/2ML VIAL 5 MG IVP (18:36)
[2023-12-10 19:07] VITALS: BP 125/75; PULSE 70; RESP 20; TEMP 37.1; O2SAT 97
== END 2023-12-10 19:11 | disposition home or self-care (01) ==
PROVIDERS: Emergency Provider Emergency Medicine; PCP Family Medicine
DX: E11.65 Type 2 diabetes mellitus with hyperglycemia (principal); A04.5 Campylobacter enteritis; R19.7 Diarrhea, unspecified; I48.0 Paroxysmal atrial fibrillation; E78.5 Hyperlipidemia, unspecified; I11.9 Hypertensive heart disease without heart failure; I25.119 Atherosclerotic heart disease of native coronary artery with unspecified angina pectoris; Z79.4 Long term (current) use of insulin; Z95.1 Presence of aortocoronary bypass graft; Z79.84 Long term (current) use of oral hypoglycemic drugs
CPT/HCPCS: 80053; 82009; 82803; 83605; 83690; 83735; 85025; 93005; 96361; 96374; 96375; 99284; J0131; J2405

== ENCOUNTER 2024-03-20 10:50 | Outpatient (CLI) | payer OTHER, SELFPAY ==
--- NOTE | 2024-03-20 11:07 | CA_ITS ---
APPROVED REPORT EXAM: Comprehensive 2D, Doppler, and color-flow Echocardiogram Recycle Coordinator: VALERIY Shaw, RVS Ht: 6 ft 6 in Wt: 379lbs BSA: 2.96 BP: 152/74 mmHg Indications: CABG-2018, SOB, S/P AURY ligatioon, SIMBA Echo Enhancing Agent Comments: TDS-Extreme body habitus/chest circumference 2D Dimensions IVSd 1.44 cm LVEF (Visual) 39.80 % PWd 1.17 cm LA Volume 84.00 mL LVDd 5.70 cm LA Volume Index 27.70 mL/m2 (M/F) 16-34 LVDs 4.58 cm EF AP4 53.30 % Left Atrium 4.25 cm GL Strain -14.3 % M-Mode Dimensions RVDd 3.03 cm (0.9-2.6) LA Diam 4.19 cm (1.9-4.0) LVDd 5.78 cm (3.5-5.7) LVDs 4.50 cm (3.5-5.7) IVSd 1.22 cm (0.6-1.1) PWd 1.37 cm (0.6-1.1) EF (Teich) 44.10% EPSs 1.53 cm FS 22.10% EDV (Teich) 165.20 mL TAPSE 1.72 (<1.7) ESV (Teich) 92.40 mL LV Diastology E Decel Time 157 (160-240 msec) E/A Ratio 2.70 MED A' 6.00 cm/s Aortic Valve EBONY Index 1.07 cm2/m2 AoV Peak Eliseo. 111.0 (50-130 cm/s) AO Peak GR. 4.90 mmHg AO Mean GR. 2.40 (<5 mmHg) AO VTI 20.2 (18-25 cm) EBONY (VTI) 3.24 (2.5-4.5 cm2) Mitral Valve MV A Velocity 33.0 (40-130 cm/s) E/A Ratio 2.70 Left Ventricle The left ventricle is normal size. The left ventricular systolic function is normal. The left ventricular ejection fraction is within the normal range. There is increased LV wall thickness. There is normal LV segmental wall motion. Transmitral Doppler flow pattern suggests impaired LV relaxation. LVEF is 55%. Right Ventricle The right ventricle is mildly dilated. The right ventricular systolic function is normal. Atria The left atrium size is normal. The right atrium size is normal. Aortic Valve The aortic valve is normal in structure. There is no aortic valvular stenosis. There is no Doppler evidence of interatrial shunt. Mitral Valve The mitral valve is normal in structure. No evidence of mitral valve stenosis. Trace mitral regurgitation. Tricuspid Valve The tricuspid valve leaflets are thin and pliable. Trace tricuspid regurgitation. There is insufficient TR jet to estimate RVSP. Pulmonic Valve The pulmonary valve is normal in structure. Trace pulmonic regurgitation. Great Vessels The aortic root is normal in size. The ascending aorta is not well-visualized. IVC is normal in size and collapses >50% with inspiration. Pericardium There is no pericardial effusion. Other Information Study Quality: Technically Difficult Conclusion Technically difficult study due to poor acoustic windows. Normal LV systolic function. Mild RV dilation with normal RV function. No significant valvular stenosis or regurgitation. Electronically signed by : Cassidy Reynolds MD 03/30/2024 11:41:52
== END 2024-03-20 23:59 | disposition home or self-care (01) ==
LOC: RT 10:52
PROVIDERS: PCP Family Medicine; Visit Provider Internal Medicine Pulmonary Disease
DX: R06.09 Other forms of dyspnea (principal); G47.33 Obstructive sleep apnea (adult) (pediatric); Z95.1 Presence of aortocoronary bypass graft
CPT/HCPCS: 93306

== ENCOUNTER 2024-08-01 10:24 | Emergency (ER) | payer OTHER, SELFPAY ==
[2024-08-01] VITALS (8 sets, daily range): BP systolic 121–165; BP diastolic 59–83; PULSE 79–87; RESP 10–20; TEMP 36.6–36.7; O2SAT 96–98; BMI 45.6
--- NOTE | 2024-08-01 10:27 | ECG_ITS ---
APPROVED REPORT Exam: Resting ECG HR:81 bpm ECG Measurements Heart Rate 81 AXES ME 207 P 77 QRSd 97 QRS 39 QT 351 T 70 QTc 389 Conclusion SINUS RHYTHM NONSPECIFIC T-WAVE ABNORMALITY BORDERLINE ECG UNCONFIRMED REPORT Electronically signed by : BEV GALINDO, 08/02/2024 06:33:29
[2024-08-01] MEDS: NITROGLYCERIN 0.4MG SL TABLET 0.4 MG SL (10:45)
[2024-08-01] MEDS: ASPIRIN 81MG CHEWABLE TABLET 324 MG PO (10:45)
--- NOTE | 2024-08-01 10:45 | XR_ITS ---
PROCEDURE INFORMATION: Exam: XR Chest Exam date and time: 08/01/2024 10:47 AM Age: 58 years old Clinical indication: Pain; Other: Cp to right flank TECHNIQUE: Imaging protocol: Radiologic exam of the chest. Views: 1 view. COMPARISON: CR XR CHEST 2V 12/08/2023 11:04 PM FINDINGS: Tubes, catheters and devices: Surgical device in the left atrium Lungs: No focal consolidation.. Pleural spaces: Unremarkable. No pleural effusion. No pneumothorax. Heart/Mediastinum: Cardiomegaly Bones/joints: Median sternotomy IMPRESSION: No focal consolidation..
[2024-08-01 10:46] LABS: Basophils % 0.5 % (0.1-2.0); Eosinophils # 0.2 K/mm3 (0.0-0.4); Eosinophils % 2.1 % (0.1-12.0); Hematocrit 45.1 % (42.0-52.0); Lymphocytes # 1.3 K/mm3 (0.7-4.5); Lymphocytes % 17.2 % (10-50); Mean Corpuscular HGB Conc 33.3 g/dL (31.8-35.4); Mean Corpuscular Hemoglobin 29.9 pg (27.0-31.2); Mean Corpuscular Volume 89.8 fl (80-94); Mean Platelet Volume 10.1 fl (7.4-10.4); Monocytes # 0.7 K/mm3 (0.1-1.0); Monocytes % 8.5 % (1.7-9.3); Neutrophils # 5.5 K/mm3 (1.8-7.8); Neutrophils % 71.2 % (37.0-80.0); Platelet Count 203 K/mm3 (142-424); Red Blood Count 5.02 M/mm3 (4.60-6.20); Red Cell Distribution Width 13.2 % (11.5-17.5); White Blood Count 7.7 K/mm3 (4.8-10.8)
[2024-08-01] MEDS: BELLADONNA ALKALOIDS 60 ML ML PO (10:47)
--- NOTE | 2024-08-01 10:54 | ED_ITS ---
Discharge Plan Disposition Patient Disposition: Home, Self-Care Chief Complaint: Chest Pain Prescriptions Prescriptions: No Action aspirin [Adult Aspirin Regimen] 81 mg tablet,delayed release (DR/EC) 81 mg PO DAILY Farxiga 10 mg tablet 10 mg PO DAILY Januvia 100 mg tablet 100 mg PO DAILY omeprazole 40 mg capsule,delayed release(DR/EC) 40 mg PO DAILY 90 Days Qty: 90 montelukast 10 mg tablet 10 mg PO DAILY 90 Days Qty: 90 Super B Complex + C 150 mg tablet 1 tab PO DIRECTED nabumetone 750 mg tablet 750 mg PO BID loratadine 10 mg tablet 10 mg PO DAILY Patient Comments: TAKE 1 TABLET BY MOUTH ONCE DAILY insulin lispro protamin-lispro [Humalog Mix 75-25 KwikPen] 100 unit/mL (75-25) insulin pen 60 unit SQ BID sucralfate 1 gram tablet 1 g PO BID amlodipine 10 mg tablet 10 mg PO DAILY albuterol sulfate 90 mcg/actuation HFA aerosol inhaler 1 - 2 puff inhalation Q6H PRN (Reason: prior to activity) 30 Days Qty: 8.5 2RF losartan 100 mg tablet See Rx Instructions .ROUTE .COMPLEX Qty: 90 3RF Dose Instruction: Take 1 tablet by mouth once daily Rx Instructions: Take 1 tablet by mouth once daily famotidine [Pepcid] 40 mg tablet 40 mg PO DAILY Qty: 30 3RF (DME) WARSTUFF G6 Transmitter Device See Rx Instructions .Route Qty: 1 0RF Rx Instructions: As directed levofloxacin 500 mg tablet 500 mg PO DAILY 5 Days Qty: 5 0RF spironolactone 25 mg tablet See Rx Instructions .ROUTE .COMPLEX Qty: 90 3RF Dose Instruction: TAKE 1 TABLET BY MOUTH TWICE DAILY FOR FLUID Rx Instructions: TAKE 1 TABLET BY MOUTH TWICE DAILY FOR FLUID ranolazine 500 mg tablet extended release 12 hr See Rx Instructions .ROUTE .COMPLEX Qty: 60 11RF Dose Instruction: Take 1 tablet by mouth twice daily Rx Instructions: Take 1 tablet by mouth twice daily Repatha SureClick 140 mg/mL pen injector See Rx Instructions .ROUTE .COMPLEX Qty: 6 4RF Dose Instruction: INJECT 140 MG UNDER THE SKIN EVERY 2 WEEKS Rx Instructions: INJECT 140 MG UNDER THE SKIN EVERY 2 WEEKS furosemide 40 MG tablet 40 mg PO DAILY metoclopramide HCl [Reglan] 5 mg tablet 5 mg PO Q8HP PRN (Reason: nausea) Qty: 14 0RF Referrals Follow up/Referrals: Lela Sánchez MD [Primary Care Provider] - See instructions Activity Restrictions/Add. Instructions Additional Instructions/Restrictions: Call your family doctor to establish care for this visit to the emergency department and schedule follow-up within 48 hours to ensure improvement. If you have any worsening of your condition or any other concerning signs or symptoms, return to the emergency department or your primary care doctor for further evaluation. Also see if you can have your cardiology appointment moved a little closer for further evaluation. Clinical Impressions Clinical Impression: Stable angina Print Language Print Language: Italian Discharge ED Provider: Levi Mckeon [facility] General Chief Complaint: Chest Pain Stated Complaint: chest pain Time Seen by Provider: 08/01/24 10:29 Mode of Arrival: Ambulatory Source of Information: Patient and Spouse Limitations: No Limitations Description of Symptoms (Recalled from ER Triage Doc. by RN): pt began having right sided chest pain ruq discomfort and he thinks it maybe gas, pt has noted increased soa and the pain is pressure and achy in nature and radiates to his back History of Present Illness HPI narrative: Please note that above description of symptoms, in this electronic medical record under categorization of recalled from ER triage doctor by RN are reflective of an initial nursing assessment, however, is not reflective of my full history and physical exam that was personally taken and clarified. Consequentially, this preceding description of symptoms, which may include the patient's categorized chief complaint in the EMR, do not reflect my personal clinical impression, and the ultimate description of history of present illness and patient stated complaints should be deferred to this section of the note. Unless stated otherwise or congruent with this section of the note, additional signs, symptoms, or incongruence should be interpreted as inaccurate with my clinical impression. Related Data Home Medications ?Medication ?Instructions ?Recorded ?Confirmed montelukast 10 mg tablet 10 mg PO DAILY allergies 90 days 12/06/17 07/02/24 ##90 omeprazole 40 mg capsule,delayed 40 mg PO DAILY GERD 90 days ##90 12/06/17 07/02/24 release vitamin B comp with C no.4 150 mg 1 tab PO DIRECTED Supplement 03/21/18 07/02/24 tablet (Super B Complex + C) aspirin 81 mg tablet,delayed 81 mg PO DAILY Heart disease 07/23/19 07/02/24 release (Adult Aspirin Regimen) nabumetone 750 mg tablet 750 mg PO BID pain 12/11/19 07/02/24 furosemide 40 mg tablet 40 mg PO DAILY Heart disease 12/30/20 07/02/24 insulin lispro protamine-lispro 60 unit SQ BID 07/20/22 07/02/24 100 unit/mL (75-25) subcutaneous pen (Humalog Mix 75-25 KwikPen) loratadine 10 mg tablet 10 mg PO DAILY 07/20/22 07/02/24 dapagliflozin propanediol 10 mg 10 mg PO DAILY 11/22/22 07/02/24 tablet (Farxiga) sitagliptin phosphate 100 mg 100 mg PO DAILY 11/22/22 07/02/24 tablet (Januvia) amlodipine 10 mg tablet 10 mg PO DAILY 05/28/23 07/02/24 sucralfate 1 gram tablet 1 g PO BID 05/28/23 07/02/24 Previous Rx's ?Medication ?Instructions ?Recorded losartan 100 mg tablet See Rx Instructions .Route 12/19/22 .COMPLEX #90 tabs famotidine 40 mg tablet (Pepcid) 40 mg PO DAILY #30 tabs 03/07/23 blood-glucose transmitter (Dexcom #1 ea 04/19/23 G6 Transmitter device) albuterol sulfate 90 mcg/actuation 1 - 2 puff inhalation Q6H PRN 05/28/23 aerosol inhaler prior to activity 30 days #8.5 grams levofloxacin 500 mg tablet 500 mg PO DAILY 5 days #5 tabs 10/07/23 metoclopramide HCl 5 mg tablet 5 mg PO Q8HP PRN nausea #14 tabs 12/10/23 (Reglan) spironolactone 25 mg tablet See Rx Instructions .Route 12/10/23 .COMPLEX #90 tabs ranolazine 500 mg tablet,extended See Rx Instructions .Route 12/23/23 release,12 hr .COMPLEX #60 tabs evolocumab 140 mg/mL subcutaneous See Rx Instructions .Route 07/24/24 pen injector (Repatha Diegoick) .COMPLEX #6 mL Allergies Allergy/AdvReac Type Severity Reaction Status Date / Time Penicillins (PENICILLINS) Allergy Severe SORES IN Verified 07/02/24 14:50 MOUTH shellfish derived Allergy Verified 07/02/24 14:50 TERE Inhibitors AdvReac Intermediate cough Verified 07/02/24 14:50 atorvastatin AdvReac Intermediate myalgia Verified 07/02/24 14:50 rosuvastatin (From Crestor) AdvReac Intermediate myalgia Verified 07/02/24 14:50 PFSH [facility] Disclaimer: The information contained in this section may have been updated after the patient was seen, as this information can be updated by other users. Medical History Dyspnea on exertion Multiple lung nodules on CT History of asthma SIMBA (obstructive sleep apnea) Pulmonary nodules SOB (shortness of breath) on exertion Erectile dysfunction Typical angina Atypical chest pain Cardiomyopathy Chest pain SIMBA on CPAP On amiodarone therapy HLD (hyperlipidemia) CAD (coronary artery disease) Surgical History Hx of CABG S/P CABG x 2 S/P left atrial appendage ligation Family History Other Cancer Diabetes Heart attack Hypertension Stroke Social History Smoking Status: Never smoker years smoked: 15 second hand exposure: Yes alcohol intake: never counseling provided: none substance use type: denies use current occupational status: disabled Travel in the last 8 weeks: None household members: family housing: house current occupation: [employer] current occupational exposures/hazards: No caffeine: No Have you lived/traveled outside [place] in past 30 days?: No Contact w/someone who lives/traveled outside [place] past 30 days?: No Exposure to someone with infectious disease in past 14 days?: No Do you have a fever (greater than 100.4 F or 38 C)?: No Have you tested positive for COVID-19: No Exposed to someone with COVID-19 in past 14 days?: No Do you have a sore throat?: No Do you have a cough?: No Do you have any weakness?: No Do you have any diarrhea?: No Are you experiencing any unusual bleeding?: No Do you have any muscle aches/pain?: No Do you have any abdominal pain?: No Are you experiencing loss of taste or smell?: No Other Medical History Have you received the Flu Vaccine for this season: Yes Have you received the Pneumonia Vaccine: Yes ROS Obtained: Yes All systems reviewed & no additional complaints except as documented Physical Exam General General appearance: alert, in no apparent distress and obese Neck Neck exam: Present trachea midline Chest Chest inspection: Present normal inspection and symmetric chest wall rise Respiratory Respiratory exam: Present normal lung sounds bilaterally; Absent respiratory distress, wheezes, stridor, accessory muscle use or prolonged expiratory phase Cardiovascular Cardiovascular exam: Present regular rate, normal rhythm and other (Pulses equal and symmetric in upper and lower extremities) Extremities Exam Extremities exam: Absent edema Neurological Exam Neurological exam: Present alert, oriented X3 and CN II-XII intact Skin Skin exam: Present warm and dry; Absent cyanosis, diaphoresis or pallor HEART Score HEART Score HEART Score assessment performed?: Yes History (anamnesis): Moderately suspicious ECG: Normal Age: 45-65 years Risk factors: 3 or more risk factors Troponin: </= normal limit HEART Score: 4 Critical Care Critical Care Time Critical Care Time: No Medical Decision Making Medical Records Medical records reviewed: Yes I reviewed the patient's medical records. Bernardo Inquiry Pt receiving controlled substance: No Bernardo was queried for this patient: No Vital Signs Vital Signs: 08/01/24 10:24 08/01/24 10:32 08/01/24 10:45 Temperature 97.8 F Temperature Source Oral Pulse Rate 87 86 Pulse Rate [Right Radial] 87 Respiratory Rate 20 18 Blood Pressure 145/74 H Blood Pressure [Right Arm] 165/83 H Blood Pressure Mean Blood Pressure Mean [Right Arm] 110 02 Sat by Pulse Oximetry 98 96 Oxygen Delivery Method Room Air Room Air 08/01/24 11:00 08/01/24 11:15 08/01/24 11:30 Temperature Temperature Source Pulse Rate 85 80 Pulse Rate [Right Radial] Respiratory Rate 18 10 L Blood Pressure 129/76 131/65 Blood Pressure [Right Arm] Blood Pressure Mean 85 Blood Pressure Mean [Right Arm] 02 Sat by Pulse Oximetry 97 96 Oxygen Delivery Method 08/01/24 12:00 Temperature Temperature Source Pulse Rate 79 Pulse Rate [Right Radial] Respiratory Rate 13 Blood Pressure 147/76 H Blood Pressure [Right Arm] Blood Pressure Mean Blood Pressure Mean [Right Arm] 02 Sat by Pulse Oximetry 96 Oxygen Delivery Method Lab Data Labs: Lab Results 08/01/24 10:30: WBC 7.7, RBC 5.02, Hgb 15.0, Hct 45.1, MCV 89.8, MCH 29.9, MCHC 33.3, RDW 13.2, Plt Count 203, MPV 10.1, Neut % (Auto) 71.2, Lymph % (Auto) 17.2, [place] % (Auto) 8.5, Eos % (Auto) 2.1, Baso % (Auto) 0.5, Neut # (Auto) 5.5, Lymph # (Auto) 1.3, [place] # (Auto) 0.7, Eos # (Auto) 0.2, Baso # (Auto) 0.0, Sodium 138, Potassium 4.1, Chloride 103, Carbon Dioxide 29, Anion Gap 10.1, BUN 29 H, Creatinine 0.70, Estimated Creat Clear 152, Estimated GFR 116, Est GFR ( Amer) 140, Glucose 177 H, Calcium 9.2, Total Bilirubin 0.8, AST 30, ALT 35, Alkaline Phosphatase 80, Troponin I < 0.01, NT-Pro-B Natriuret Pep 148 H, Total Protein 7.0, Albumin 4.2, Globulin 2.8, Albumin/Globulin Ratio 1.5, Lipase 40 08/01/24 13:05: Troponin I < 0.01 08/01/24 10:30 08/01/24 10:30 Response Orders (Tests/Meds): ED MEDICATIONS Generic Name Dose Route Start Last Admin Trade Name Freq PRN Reason Stop Dose Admin Nitroglycerin 0.4 mg 08/01/24 10:38 08/01/24 10:45 Nitroglycerin 0.4mg Sl Tablet SL 08/31/24 10:37 0.4 mg Q5MINP PRN Administration Chest Pain Discontinued Medications Generic Name Dose Route Start Last Admin Trade Name Freq PRN Reason Stop Dose Admin Aspirin 324 mg 08/01/24 10:38 08/01/24 10:45 Aspirin 81mg Chewable Tablet PO 08/01/24 10:39 324 mg ONCE ONE Administration Belladonna Alkaloids 60 ml 08/01/24 10:46 08/01/24 10:47 Belladonna Alkaloids 60 Ml Ml PO 08/01/24 10:47 60 ml ONCE ONE Administration ORDERS Category Date Time Status CXR --portable [XR chest portable] Stat Exams 08/01/24 10:45 Completed Complete Blood Count Auto Diff Stat Lab 08/01/24 10:30 Completed Comprehensive Metabolic Panel Stat Lab 08/01/24 10:30 Completed Lipase Stat Lab 08/01/24 10:30 Completed NT Pro Brain Natriuretic Pep. Stat Lab 08/01/24 10:30 Completed Troponin I Q3H Lab 08/01/24 13:05 Completed Troponin I Q3H Lab 08/01/24 16:45 Ordered Troponin I Stat Lab 08/01/24 10:30 Completed MDM Narrative Medical Decision Narrative: 58-year-old male history of hypertension, hyperlipidemia, CAD status post stenting, CABG, diabetes, obstructive sleep apnea, cholecystectomy presenting with chest pain. Patient states he woke up around 4 AM today, 08/01 and started having chest pains while he was walking to the bathroom. States that he thought it was just gas. Took a couple of Mikaela-Jenkinjones's and that did not help. States that this is a similar presentation to when he had his acute coronary syndrome in the past, so came in for further evaluation. Chest pain is right-sided, intermittently goes to his right flank/lateral chest, intermittent, mild in intensity. No shortness of breath, diaphoresis, nausea, vomiting, neurologic deficits, or any other concerns. History was obtained via conversation with patient. On arrival, patient hemodynamically stable, alert, oriented x4, appropriate, GCS 15, moving all extremities spontaneously, pupils equal and reactive to light. Full physical exam performed and significant for obese male no acute distress. Speaking full sentences. Skin is warm and dry. Lungs are clear, cardiac exam without murmurs gallops or rubs. No lower extremity edema. Pulses are equal and symmetric. Differential includes microvascular coronary artery disease, CHF, ACS, IN, coronary artery dissection, pneumothorax, PE, dissection, pericarditis, myocarditis, pneumothorax, aortic aneurysm, pneumonia, bronchitis, among others. Patient was given aspirin, nitroglycerin, GI cocktail for symptomatic management and correction of underlying abnormalities. Patient placed on continuous cardiac monitoring and continuous pulse ox with initial blood pressure 145/74, heart rate 86, saturation 96% on room air. Independent interpretation of EKG shows sinus rhythm [address] or T wave changes consistent with acute ischemia. W[place] 207, QRS 97, QTc 389. Normal axis. Workup independently interpreted and significant for nonactionable CBC or chemistry. Troponin negative, BNP nonactionable. Lipase negative. On independent interpretation of imaging, no acute cardiopulmonary airspace disease on chest x-ray. See radiology read for full review of final results. Heart score 4. On reevaluation, patient states that his chest pain is no longer present. Has not received any additional doses of nitroglycerin. Patient was placed in observation beginning at 10:30 AM in order to rule out evolving IN with delta troponins and determine need for admission versus home-going. The patient was provided meds/serial exams/monitoring while awaiting results. Independent interpretation of results demonstrated negative delta troponin. On reevaluation, patient states he still has no pain. At this time, I feel patient is appropriate for discharge. Total observation time 3.5 hours. Regarding follow-up and social determinants of health, patient already has cardiology follow-up and feels comfortable seeing them outpatient given workup today. Given patient presentation, workup, history, this most likely represents stable angina versus gas pains. Patient states that he has been fartin and burpin and felt much better after that. Recommended that he move his cardiology appointment forward given concern for stable angina and high risk patient. Because patient at baseline without signs or symptoms of clinical decompensation, deemed appropriate for discharge. Results were relayed to patient who voiced understanding and were agreeable to outpatient management and follow up. I discussed my clinical impression with patient and answered all questions. At this time, the evidence for any other entities in the differential is insufficient to warrant any further testing or ED observation. This was explained as well. Advisory was given that persistent or worsening symptoms require further evaluation. I confirmed the understanding of this discussion. [employer] disclaimer Much of this encounter note is an electronic aircraft fuselage framer spoken language to printed text. Electronic aircraft fuselage framer of the spoken language may permit errors. Although I have reviewed the note, some errors may still exist.
[2024-08-01 10:56] LABS: Albumin Level 4.2 g/dl (3.5-5.0); Chloride 103 mmol/L (98-107); Potassium 4.1 mmoL/L (3.5-5.1); Sodium 138 mmol/L (136-145)
[2024-08-01 10:59] LABS: Alanine Aminotransferase 35 U/L (12-78); Albumin/Globulin Ratio 1.5 (1.1-1.8); Alkaline Phosphatase 80 U/L (38-126); Anion Gap 10.1 mEq/L (5-15); Aspartate Amino Transferase 30 U/L (17-59); Bilirubin,Total 0.8 mg/dl (0.2-1.3); Blood Urea Nitrogen 29 mg/dl (9-20); Calcium 9.2 mg/dl (8.4-10.2); Carbon Dioxide 29 mmol/L (22.0-30.0); Creatinine Clearance Estimated 152 mL/min (50-200); Estimated Glomerular Filt Rate 116 ml/min (>60); GFR (African American) 140 ML/MIN (>60); Globulin 2.8 g/dL (1.3-3.2); Glucose 177 mg/dl (74-100)
[2024-08-01 11:08] LABS: NT Pro Brain Natriuretic Pep. 148 pg/mL (0-125)
[2024-08-01 11:12] LABS: Lipase 40 U/L (23-300)
[2024-08-01 11:13] LABS: Troponin I < 0.01 ng/ml (0.00-0.034)
--- NOTE | 2024-08-01 12:27 | PC.NURSE ---
REGULAR LUNCH TRAY REQUESTED
--- NOTE | 2024-08-01 12:37 | PC.NURSE ---
LUNCH TRAY SET-UP FOR PT
--- NOTE | 2024-08-01 12:57 | PC.NURSE ---
Patient in room and doesn't need anything.
[2024-08-01 13:34] LABS: Troponin I < 0.01 ng/ml (0.00-0.034)
--- NOTE | 2024-08-01 13:57 | PC.NURSE ---
DR SON AT BEDSIDE TO UPDATE PT AND
== END 2024-08-01 14:09 | disposition home or self-care (01) ==
PROVIDERS: Emergency Provider Emergency Medicine; PCP Family Medicine
DX: I20.89 Other forms of angina pectoris (principal); R07.9 Chest pain, unspecified; R06.02 Shortness of breath
CPT/HCPCS: 71045; 80053; 83690; 83880; 84484; 85025; 93005; 99284

== ENCOUNTER 2024-09-24 09:55 | Outpatient (POV) | payer OTHER, SELFPAY ==
--- NOTE | 2024-09-24 10:35 | A.OFFVIS_ITS ---
HPI Data of Consult Patient: new to practice Consult date: 09/24/24 Requesting Physician: Tresa Russell APRN Primary Care Provider: Lela Sánchez MD Consult Narrative Reason for consult: Low back pain, left hip pain History of present illness: Mr. Garces is a 59 year old male who presents today as a new patient. He is a referral from [facility]. Today he rates his pain a 8 out of 10. Patient states he has chronic low back pain that is going on for years and progressively worsened. He states it did get very severe however in the last 2 weeks and feels like it is more along the left side. He describes it as a sharp throbbing sensation with numbness and pressure. He states the pain is constant and is interfering with his ability perform activities of daily living such as cooking and cleaning. Patient states that there was no initial injury or trauma that started this pain. He states he has tried oral medications including [place] and Lyrica along with heat and ice and topicals with minimal relief. He states the heating pad does help temporarily but the pain medication just makes him go to sleep. He states that it is affecting his sleep and that he has not been able to sleep in the bed since this started. He states that he has had right- sided issues in the past however denies any problems in the last couple of weeks on that side. He has used his 's compounded cream that she gets from our office and it does help some. Patient denies any recent imaging or history of physical therapy or chiropractor therapy. Patient is very active and does stretching and exercises on a daily basis for longer than 12 weeks with no additional improvement. 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 His Bernardo has been reviewed and is appropriate. CC: Tresa Russell APRN [facility] Disclaimer: The information contained in this section may have been updated after the patient was seen, as this information can be updated by other users. Medical History Dyspnea on exertion Multiple lung nodules on CT History of asthma SIMBA (obstructive sleep apnea) Pulmonary nodules SOB (shortness of breath) on exertion Erectile dysfunction Typical angina Atypical chest pain Cardiomyopathy Chest pain SIMBA on CPAP On amiodarone therapy HLD (hyperlipidemia) CAD (coronary artery disease) Surgical History Hx of CABG S/P CABG x 2 S/P left atrial appendage ligation Family History Other Cancer Diabetes Heart attack Hypertension Stroke Social History Smoking Status: Never smoker years smoked: 15 second hand exposure: Yes alcohol intake: never counseling provided: none substance use type: denies use current occupational status: disabled Travel in the last 8 weeks: None household members: family housing: house current occupation: [employer] current occupational exposures/hazards: No caffeine: No Review of Systems Review of Systems Review of systems:: pertinent systems reviewed and negative unless documented below Review of systems (narrative): Review of Systems: General: No recent weight changes, no fever, no sleep disturbances Respiratory: No cough, no shortness of air, no recurring pulmonary infections Cardiovascular/peripheral vascular: No chest pain, no palpitations, no edema, no shortness of breath Gastrointestinal: No new onset incontinence, normal bowel movements reported Genitourinary: No new onset incontinence Musculoskeletal: Low back pain, left hip pain Psychiatric: [Normal mood/affect] Neurological: [Denies weakness in extremities], [denies balance issues] Meds Home Medications and Allergies Home Medications ?Medication ?Instructions ?Recorded ?Confirmed ?Type montelukast 10 mg tablet 10 mg PO DAILY allergies 90 days 12/06/17 07/02/24 History ##90 omeprazole 40 mg capsule,delayed 40 mg PO DAILY GERD 90 days ##90 12/06/17 07/02/24 History release vitamin B comp with C no.4 150 mg 1 tab PO DIRECTED Supplement 03/21/18 07/02/24 History tablet (Super B Complex + C) aspirin 81 mg tablet,delayed 81 mg PO DAILY Heart disease 07/23/19 07/02/24 History release (Adult Aspirin Regimen) nabumetone 750 mg tablet 750 mg PO BID pain 12/11/19 07/02/24 History furosemide 40 mg tablet 40 mg PO DAILY Heart disease 12/30/20 07/02/24 History insulin lispro protamine-lispro 60 unit SQ BID 07/20/22 07/02/24 History 100 unit/mL (75-25) subcutaneous pen (Humalog Mix 75-25 KwikPen) loratadine 10 mg tablet 10 mg PO DAILY 07/20/22 07/02/24 History dapagliflozin propanediol 10 mg 10 mg PO DAILY 11/22/22 07/02/24 History tablet (Farxiga) sitagliptin phosphate 100 mg 100 mg PO DAILY 11/22/22 07/02/24 History tablet (Januvia) losartan 100 mg tablet See Rx Instructions .Route 12/19/22 07/02/24 Rx .COMPLEX #90 tabs famotidine 40 mg tablet (Pepcid) 40 mg PO DAILY #30 tabs 03/07/23 07/02/24 Rx blood-glucose transmitter (Dexcom #1 ea 04/19/23 07/02/24 Rx G6 Transmitter device) albuterol sulfate 90 mcg/actuation 1 - 2 puff inhalation Q6H PRN 05/28/23 07/02/24 Rx aerosol inhaler prior to activity 30 days #8.5 grams amlodipine 10 mg tablet 10 mg PO DAILY 05/28/23 07/02/24 History sucralfate 1 gram tablet 1 g PO BID 05/28/23 07/02/24 History levofloxacin 500 mg tablet 500 mg PO DAILY 5 days #5 tabs 10/07/23 07/02/24 Rx metoclopramide HCl 5 mg tablet 5 mg PO Q8HP PRN nausea #14 tabs 12/10/23 07/02/24 Rx (Reglan) spironolactone 25 mg tablet See Rx Instructions .Route 12/10/23 07/02/24 Rx .COMPLEX #90 tabs ranolazine 500 mg tablet,extended See Rx Instructions .Route 12/23/23 07/02/24 Rx release,12 hr .COMPLEX #60 tabs evolocumab 140 mg/mL subcutaneous See Rx Instructions .Route 07/24/24 Rx pen injector (Repatha SureClick) .COMPLEX #6 mL baclofen 10 mg tablet 10 mg PO TID #42 tabs 09/24/24 Rx New Prescriptions to Start Prescriptions: Tresa Villalta Allergies Allergy/AdvReac Type Severity Reaction Status Date / Time Penicillins (PENICILLINS) Allergy Severe SORES IN Verified 07/02/24 14:50 MOUTH shellfish derived Allergy Verified 07/02/24 14:50 TERE Inhibitors AdvReac Intermediate cough Verified 07/02/24 14:50 atorvastatin AdvReac Intermediate myalgia Verified 07/02/24 14:50 rosuvastatin (From Crestor) AdvReac Intermediate myalgia Verified 07/02/24 14:50 Objective Narrative: Physical Exam: General: Alert and oriented x3, no acute distress, pleasant and cooperative Lungs: Respirations even and unlabored, symmetrical chest expansion Eyes: PERRL Musculoskeletal: Flexion and extension of lumbar [spine] somewhat guarded secondary to pain, [antalgic gait noted] point tenderness along left SI with positive left Robert's, Lori's, Gaenslen's, compression and distraction exam Neurological: Speech clear, no gross sensory deficit Assessment and Plan *Assessment and plan (1) Chronic low back pain: Status: Acute Category: Medical Code(s): M54.50 - Low back pain, unspecified; G89.29 - Other chronic pain (2) Left hip pain: Status: Acute Category: Medical Code(s): M25.552 - Pain in left hip (3) Sacroiliitis: Status: Acute Category: Medical Code(s): M46.1 - Sacroiliitis, not elsewhere classified Plan Patient is experiencing worsening pain along the low back and bilateral hips. They did have limited range of motion of the lumbar spine along with point tenderness along left SI joint and a positive left Robert's, Lori's, Gaenslen's, compression and distraction exam. I did discuss with the patient that I do believe they would benefit from left SI injections. Risk and benefits were discussed with the patient and they would like to proceed forward with this option. Patient has tried and failed conservative therapy including continued at home stretching exercise for longer than 12 weeks. I will also order x-ray imaging of his lumbar spine and left hip. Patient will be sent in a 2-week dose of baclofen 3 times daily as needed. We will also proceed forward with ordering CT without contrast of his lumbar spine following his x-ray imaging. Patient will be scheduled for left SI injections under fluoroscopy. Patient has been instructed to contact the clinic with any concerns before the next appointment. Dr. Zacarias has reviewed this note and agrees with this plan of care. This note was dictated using voice recognition software and make contain errors or omissions. All injections are used with Lidocaine or Bupivacaine and Depo Medrol.
--- NOTE | 2024-09-24 10:37 | XR_ITS ---
FINAL REPORT CLINICAL HISTORY: Low back pain FINDINGS: LUMBAR SPINE Three views were obtained. There is no acute fracture. There is moderate diffuse degenerative disc disease, most pronounced at L4-5. Lower lumbar facet overgrowth is identified. There is probable canal stenosis and neuroforaminal narrowing in the lower lumbar spine. There is no malalignment. IMPRESSION: Degenerative changes in the lower lumbar spine without fracture. Reviewed, Interpreted and Dictated by Iraida Espinosa MD Transcribed by Cassie Hairston Authenticated and [facility]
--- NOTE | 2024-09-24 10:37 | XR_ITS ---
FINAL REPORT CLINICAL HISTORY: left hip pain FINDINGS: LEFT HIP Three views were obtained. There is no fracture or dislocation. The joint spaces appear normal. No soft tissue abnormality is identified. IMPRESSION: No acute process. Reviewed, Interpreted and Dictated by Iraida Espinosa MD Transcribed by Cassie Hairston Authenticated and [facility]
[2024-09-24 11:48] VITALS: BP 136/64; PULSE 75; RESP 18; O2SAT 95; BMI 43.3
== END 2024-09-24 23:59 | disposition home or self-care (01) ==
PROVIDERS: PCP Family Medicine; Visit Provider Nurse Practitioner Family
DX: M54.50 Low back pain, unspecified (principal); G89.29 Other chronic pain; M25.552 Pain in left hip; M46.1 Sacroiliitis, not elsewhere classified; Z73.89 Other problems related to life management difficulty; Z79.899 Other long term (current) drug therapy
CPT/HCPCS: 72100; 73502; 99202; G0463

== ENCOUNTER 2024-10-09 07:37 | Outpatient (CLI) | payer OTHER, SELFPAY ==
--- NOTE | 2024-10-09 07:40 | CT_ITS ---
FINAL REPORT CLINICAL HISTORY: LBP with left leg pain COMPARISON: None FINDINGS: CT LUMBAR SPINE TECHNIQUE: Thin section noncontrast axial CT with sagittal reconstructions This study was performed with techniques to keep radiation doses as low as reasonably achievable, (ALARA). Individualized dose reduction techniques using automated exposure control or adjustment of mA and/or kV according to the patient's size were employed. FINDINGS: No fracture is present. Alignment is normal. T12-L1: Minimal annular disc bulge. No canal stenosis. L1-L2: Moderate annular disc bulge with facet arthropathy. Mild central canal stenosis. Moderate neural foraminal narrowing. L2-L3: Moderate annular disc bulge with facet arthropathy. Mild central canal stenosis. Moderate neural foraminal narrowing. L3-L4: Moderate annular disc bulge with facet arthropathy. Mild central canal stenosis. Moderate neural foraminal narrowing. L4-L5: Moderate to large annular disc bulge. Facet arthropathy. Severe central canal stenosis and neural foraminal narrowing. L5-S1: Mild annular disc bulge. Moderate facet arthropathy. Severe bilateral neural foraminal narrowing. IMPRESSION: Advanced multilevel degenerative change with canal stenosis and neural foraminal narrowing most pronounced at L4-5. Reviewed, Interpreted and Dictated by Iraida Espinosa MD Transcribed by Elvia Gordillo Authenticated and [facility]
== END 2024-10-09 23:59 | disposition home or self-care (01) ==
LOC: RAD 07:38
PROVIDERS: PCP Family Medicine; Visit Provider Nurse Practitioner Family
DX: M25.552 Pain in left hip (principal); M54.50 Low back pain, unspecified
CPT/HCPCS: 72131

== ENCOUNTER → 2024-10-13 14:23 | Day surgery (SDC) | payer OTHER, SELFPAY ==
--- NOTE | 2024-10-13 14:53 | PC.NURSE ---
PT BLOOD SUGAR 270. PROVIDER AT BEDSIDE. PROCEDURE RESCHEDULED. EDUCATION PROVIDED.
== END ==
LOC: SC.PAINP 14:24
PROVIDERS: PCP Family Medicine; Visit Provider Nurse Anesthetist, Certified Registered
DX: Z53.09 Procedure and treatment not carried out because of other contraindication (principal)
CPT/HCPCS: 99212; G0463

== ENCOUNTER 2024-11-03 08:52 | Day surgery (SDC) | payer OTHER, SELFPAY ==
[2024-11-03 09:00] VITALS: BP 140/74; PULSE 65; RESP 16; TEMP 37.1; O2SAT 99; BMI 43.3
[2024-11-03 09:25] VITALS: BP 126/80; PULSE 62; RESP 16; O2SAT 99
[2024-11-03] MEDS: methylPREDNISolone ACETATE 80MG/ML VIAL 80 MG (09:30)
[2024-11-03] MEDS: BUPIVACAINE 0.25% 10ML INJ 25 MG IJ (09:30)
[2024-11-03 09:31] VITALS: BP 154/98; PULSE 74; RESP 18; O2SAT 96
[2024-11-03] MEDS: LIDOCAINE 1% 5ML PF VIAL 5 ML (09:31)
[2024-11-03 09:32] VITALS: BP 154/98; PULSE 74; RESP 18; O2SAT 96
--- NOTE | 2024-11-03 09:35 | EXP.PAIN.PRO ---
Procedure Date: 11/03/24 Time: 09:10 Anesthesiologist:: Fernando Gordon CRNA Complications:: None Pre-procedure Diagnosis:: Left sacroiliitis Post-procedure Diagnosis:: Same Indications for Procedure:: Patient is a very pleasant 59-year-old male who comes our clinic today for a left sacroiliac joint injection of cortisone local anesthetic. Patient describes low lumbar back pain off the midline to the left. Left posterior hip pain. Difficulty transitioning from sitting to standing due to left posterior hip pain. He rates his pain 7/10. Procedure Details:: Procedure: Left sacroiliac injection under fluoroscopy Informed consent was obtained and the risk and benefits of the procedure were explained to the patient.~ The patient was taken to the procedure room and noninvasive monitors were placed including noninvasive blood pressure cuff and pulse oximeter.~ The patient was placed prone on the procedure table.~ The~ left hip was cleansed using Betadine as a cleansing solution.~ C-arm fluorosocpy was used to view the left SI joint.~ The skin and subcutaneous tissues were anesthetized using Lidocaine 1.5% and a 25-gauge needle.~ After this, a 22-gauge spinal needle was inserted under fluoroscopic guidance into the inferior aspect of the left SI joint.~ Omnipaque dye was injected and a good spread was seen throughout the joint.~ After this, approximately 5 mL of bupivacaine 0.25% and Depo-Medrol 40 mg was incrementally injected into the sacroiliac joint.~ The patient tolerated the procedure well with no complications.~ The patient was observed in the Pain Clinic for a period of 30-45 minutes, then discharged home neurologically intact.~ Plan and Disposition:: Patient was discharged without incident.
== END 2024-11-03 09:25 | disposition home or self-care (01) ==
PROVIDERS: PCP Family Medicine; Visit Provider Nurse Anesthetist, Certified Registered
DX: M46.1 Sacroiliitis, not elsewhere classified (principal)
CPT/HCPCS: 27096; G0260; J1010

== ENCOUNTER 2024-11-16 09:22 | Outpatient (POV) | payer OTHER, SELFPAY ==
--- OUTSIDE RECORDS SUMMARY | 2024-11-16 09:25 | XMS_ITS | Data Portability ---
Author Organization [facility] ADMIN Address [address] [place] [id number] Assessment No assessment recorded. Plan of Treatment Reminders Order Date Submit Date Provider Last Modified By Organization Details Last Modified Time Details Appointments None record ed. Lab None record ed. Referral None record ed. Procedures None record ed. Surgeries None record ed. Imaging None record ed. Medication Orders None record ed. Patient TargetsNo targets recorded. Patient Instructions Encounter Date Encounter Id Patient Instructions Last Modified By Organization Details Last Modified Time 04/17/2022 [id number] 1-Discussed findings with Mr. Garces and Dr. Janna Bravo MD. 2-F/u with Dr. Bravo this date. 3-F/u hearing testing as directed. [email or web address] Not available 04/17/2022 14:45:18 Reason for Referral None Reported. Procedures Surgical History Date Name Laterality Status Provider Name and Address Organization Details Recorded Time [facility] 13:36[facility]39 myringotomy and insertion of tympanic ventilation tube [facility] 13:36:58 Imaging Results None recorded. Procedure Notes None recorded. Medical Equipment None Reported. Allergies No known drug allergies Medications Name Sig Start Date Stop Date Status Note LastModified by Organization Details LastModified Time furosemide 40 mg tablet TAKE DIRECTED FOR 90 DAYS active Not Available Not Available No t Available fluconazole 100 mg tablet TAKE 1 TABLET BY MOUTH ONCE DAILY FOR 14 DAYS active Not Available Not Available No t Available nabumetone 750 mg tablet TAKE 1 TABLET BY MOUTH TWICE DAILY active Not Available Not Available No t Available cetirizine 10 mg tablet TAKE 1 TABLET BY MOUTH ONCE DAILY active Not Available Not Available No t Available azithromyci n 250 mg tablet TAKE 2 TABLETS BY MOUTH ON DAY 1, AND THEN TAKE 1 TABLET BY MOUTH ONCE A DAY ON DAY 2 THROUGH DAY 5 04/17 completed Not Available Not Available Not Available glyburide 5 mg tablet TAKE 1 TABLET BY MOUTH ONCE DAILY WITH BREAKFAST OR THE FIRST MAIN MEAL OF THE DAY active Not Available Not Available No t Available sucralfate 1 gram tablet TAKE 1 TABLET BY MOUTH BEFORE MEAL(S) AND 1 AT BEDTIME active Not Available Not Available No t Available ondansetron HCl 4 mg tablet TAKE 1 TABLET BY MOUTH THREE TIMES DAILY NEEDED FOR NAUSEA AND VOMITING active Not Available Not Available No t Available diphenoxyla te-atropine 2.5 mg-0.025 mg tablet TAKE 1 TABLET BY MOUTH 4 TIMES DAILY NEEDED active Not Available Not Available No t Available ciprofloxac in 500 mg tablet TAKE 1 TABLET BY MOUTH EVERY 12 HOURS FOR 10 DAYS 04/17 completed Not Available Not Available Not Available omeprazole 40 mg capsule,del ayed release TAKE 1 CAPSULE BY MOUTH ONCE DAILY active Not Available Not Available No t Available spironolact one 25 mg tablet TAKE 1 TABLET BY MOUTH TWICE DAILY FOR FLUID active Not Available Not Available No t Available bisoprolol fumarate 5 mg tablet TAKE 1 TABLET BY MOUTH ONCE DAILY active Not Available Not Available No t Available OneTouch Ultra Test strips USE 1 STRIP TO CHECK GLUCOSE 4 TIMES DAILY DIRECTED active Not Available Not Available No t Available meclizine 25 mg tablet TAKE 1 TABLET BY MOUTH THREE TIMES DAILY NEEDED FOR VERTIGO active Not Available Not Available No t Available tobramycin 0.3 % eye drops INSTILL 1 DROP INTO AFFECTED EYE EVERY 4 HOURS FOR 7 DAYS active Not Available Not Available No t Available montelukast 10 mg tablet TAKE 1 TABLET BY MOUTH ONCE DAILY IN THE EVENING active Not Available Not Available No t Available methylpredn isolone 4 mg tablets in a dose pack TAKE DIRECTED BY MOUTH DAILY FOR 6 DAYS 04/17 completed Not Available Not Available Not Available losartan 50 mg-hydrochl orothiazide 12.5 mg tablet TAKE 1 TABLET BY MOUTH ONCE DAILY active Not Available Not Available No t Available ondansetron 4 mg disintegrat ing tablet DISSOLVE 1 TABLET IN MOUTH THREE TIMES DAILY NEEDED FOR NAUSEA AND VOMITING active Not Available Not Available No t Available cefdinir 300 mg capsule TAKE 1 CAPSULE BY MOUTH TWICE DAILY 04/17 completed Not Available Not Available Not Available losartan 100 mg tablet TAKE 1 TABLET BY MOUTH ONCE DAILY active Not Available Not Available No t Available neomycin-po lymyxin-hyd rocort 3.5 mg-10,000 unit/mL-1 % ear drops,susp INSTILL 3 DROPS INTO RIGHT EAR THREE TIMES DAILY FOR 7 DAYS active Not Available Not Available No t Available Vigamox 0.5 % eye drops INSTILL 1 DROP INTO AFFECTED EYE(S) THREE TIMES DAILY FOR 7 DAYS active Not Available Not Available No t Available Ciprodex 0.3 %-0.1 % ear drops,suspe nsion INSTILL 2 DROPS INTO AFFECTED EAR TWICE DAILY FOR 7 DAYS active Not Available Not Available No t Available ranolazine ER 500 mg tablet,exte nded release,12 hr TAKE 1 TABLET BY MOUTH TWICE DAILY active Not Available Not Available No t Available Januvia 100 mg tablet TAKE 1 TABLET BY MOUTH ONCE DAILY active Not Available Not Available No t Available Lantus Solostar U-100 Insulin 100 unit/mL (3 mL) subcutaneou s pen INJECT UP TO 60 UNITS SUBCUTANE OUSLY ONCE DAILY DIRECTED. active Not Available Not Available No t Available Humalog Mix 75-25 KwikPen U-100 insulin 100 unit/mL subcutaneou s pen INJECT 40 UNITS SUBCUTANE OUSLY IN THE MORNING, THEN 60 UNITS IN THE EVENING. active Not Available Not Available No t Available Farxiga 10 mg tablet TAKE 1 TABLET BY MOUTH ONCE DAILY active Not Available Not Available No t Available Glyxambi 25 mg-5 mg tablet TAKE 1 TABLET BY MOUTH ONCE DAILY IN THE MORNING active Not Available Not Available No t Available Toujeo SoloStar U-300 Insulin 300 unit/mL (1.5 mL) subcutaneou s pen INJECT 40 UNITS SUBCUTANE OUSLY ONCE DAILY active Not Available Not Available No t Available Repatha SureClick 140 mg/mL subcutaneou s pen injector INJECT 140 MG UNDER THE SKIN EVERY 2 WEEKS active Not Available Not Available No t Available Dexcom G6 Sensor device USE DIRECTED EVERY 10 DAYS active Not Available Not Available No t Available Dexcom G6 Director Of Emergency Nursing TEST BLOOD SUGAR 4 TIMES DAILY DIRECTED active Not Available Not Available No t Available Dexcom G6 Transmitter device USE DIRECTED FOUR TIMES A DAY active Not Available Not Available No t Available BD Johanna 2nd Gen Pen Needle 32 gauge x 5/32 USE ONCE DAILY DIRECTED active Not Available Not Available No t Available OneTouch Ultra2 Meter USE METER TO CHECK GLUCOSE TWICE DAILY active Not Available Not Available No t Available OneTouch Delica Plus Lancet 33 gauge USE 1 LANCET TO CHECK GLUCOSE TWICE DAILY active Not Available Not Available No t Available Rybelsus 7 mg tablet TAKE 1 TABLET BY MOUTH ONCE DAILY active Not Available Not Available No t Available Rybelsus 3 mg tablet TAKE 1 TABLET BY MOUTH ONCE DAILY active Not Available Not Available No t Available Vitals Date Recorded Body height Body mass index (BMI) Body weight Provider Name and Address Organization Details Last Updated DateTime 04/17/2022 198.12 cm 41.4 kg/m2 039101.07 g Polly Edward [facility] [place] 04/17/2022 13:20:36 Social History None recorded. Functional Status None recorded. Mental Status None recorded. Family History Nothing Reported. Medical History Condition Response Emphysema N Depression N Glaucoma N Anesthesia Complications N Anxiety Disorder N Arthritis N Hearing Loss N Acid Reflux (GERD) N Cancer N Stroke N Fibromyalgia N Headaches N Speech Delay N Kidney Disease N Allergies/Hayfever Y Heart Problems N Heart Conditions N Migraines N Thyroid Problems N Developmental Delay N Anemia N Immune System Disorder N Heart Attack ([place]) N Diabetes Y Bleeding Disorder N Tuberculosis N Hyperlipidemia N Asthma N Sleep Disorder Y GERD/Reflux N Heart Disease N Hypertension Y Past Encounters Encounter ID Performer Location Encounter Start Date Encounter Closed Date Diagnosis/Indication Diagnosis SNOMED-CT Code Diagnosis ICD10 Code Diagnosis Note [id number] Janna Bravo MD [facility] [place] [address] [place] [phone] 04/17/2022 13:05:50 04/17/2022 14:33:31 Tympanosclerosis 31125274 H74.01 Ventilatio n tube finding 089659020 Z96.22 left tympanosto my tube is still in place and patent. Tympanogra m on the left was flat with a large volume indicative of a patent and open tube in tympanogra m on the right was type a. His hearing bilaterall y shows mild high-frequ ency sensorineu ral hearing loss otherwise within normal limits. Given his audiometri c findings would not recommend replacemen t of the ear tube on the right at this time. Should he start to notice where he is being treated for an ear infection more than every three months, I would like for him to contact the office. Otherwise, I will see him back as needed. [id number] LILA MADRID [facility] [place] [address] [place] [phone] 04/17/2022 14:32:06 04/17/2022 14:45:44 Sensorineural hearing loss 18442386 H90.3 Health Concerns Section Related Observation LastModified by Organization Detai ls LastModified Time None Recorded Concern Status LastModified by Organization Details LastModified Time None Recorded Advance Directives Directive None Recorded Payers Encounter Date Sequence Insurance Name Policy Number Policy Arthur Covered Member ID Arthur Member ID Guarantor Name 04/17/2022 1 [employer] [facility] (MEDICAID HMO) Massimo Mili [id number] Massimo Mejiajackelyn 04/17/2022 1 [employer] [facility] (MEDICAID HMO) Massimo Mili [id number] Massimo Mili Notes Date Note Type Note Provider Name and Address Organization Details Recorded Time 04/17/2022 text/html 56yo male in the office today to discuss his long standing trouble with the left ear. States he has been treated several times for ear infections. He never had ear tubes as a child, but had a set of tubes placed by Dr. Haas ten years ago. Denies any otorrhea but does feel like her can't hear that well out of the right ear. Janna Bravo MD [address], [place], [phone], [facility] & [place] 04/19/2022 11:29:46 04/17/2022 text/html Mr. Garces was seen today for an audiologic evaluation due to long-standing middle ear dysfunction bilaterally per Dr. Janna Bravo MD. Mr. Garces has a long-standing (10-15 years) PE tube in the LE that appears in place and patent. Otoscopic inspection of the RE revealed tympanosclerosis, but was otherwise unremarkable. He denies hearing loss. LILA MADRID [address] , [place], [address], [facility] 04/17/2022 14:45:37
[2024-11-16 09:44] VITALS: BP 118/62; PULSE 75; RESP 18; O2SAT 98; BMI 43.3
--- NOTE | 2024-11-16 09:48 | EXP.PAIN.SOA ---
[facility] Disclaimer: The information contained in this section may have been updated after the patient was seen, as this information can be updated by other users. Medical History Dyspnea on exertion Multiple lung nodules on CT History of asthma SIMBA (obstructive sleep apnea) Pulmonary nodules SOB (shortness of breath) on exertion Erectile dysfunction Typical angina Atypical chest pain Cardiomyopathy Chest pain SIMBA on CPAP On amiodarone therapy HLD (hyperlipidemia) CAD (coronary artery disease) Surgical History Hx of CABG S/P CABG x 2 S/P left atrial appendage ligation Family History Other Cancer Diabetes Heart attack Hypertension Stroke Social History Smoking Status: Never smoker years smoked: 15 second hand exposure: Yes alcohol intake: never counseling provided: none substance use type: denies use current occupational status: other Travel in the last 8 weeks: None household members: family housing: house current occupation: [employer] current occupational exposures/hazards: No caffeine: No PM Subjective & Objective Subjective Subjective:: Patient is a pleasant 59-year-old male who presents today for follow-up of his left SI injection on 11/03/2024. Today he rates 80% improvement in this area and states that it is so much better. He states he is able to move around easier and that he does not have the pain when he is in prolonged positioning such as sitting like what he had prior. Patient does however state that he is rating his pain an 8 out of 10 and stating this pain is all along his low back that does radiate down his entire right leg to around his foot. Patient states that it travels down the back of his leg. He states it is always worse with standing or walking and describes it as a sharp achy sensation with numbness. Patient does state the pain interferes with his ability perform activities of daily living such as cooking and cleaning. Patient is interested in additional injection therapy. He does also state that he has been having a lot of cramps in his lower legs that do seem to wake him up in the middle of the night. He states that this does affect both legs and has been going on for some time. Patient is prescribed compounded cream from our office. His Bernardo has been reviewed and is appropriate. Review of Systems: General: No recent weight changes, no fever, no sleep disturbances Respiratory: No cough, no shortness of air, no recurring pulmonary infections Cardiovascular/peripheral vascular: No chest pain, no palpitations, no edema, no shortness of breath Gastrointestinal: No new onset incontinence, normal bowel movements reported Genitourinary: No new onset incontinence Musculoskeletal: Low back pain, right leg pain Psychiatric: [Normal mood/affect] Neurological: [Denies weakness in extremities], [denies balance issues] Pain at rest (0-10 scale): 8 Objective Objective:: Physical Exam: General: Alert and oriented x3, no acute distress, pleasant and cooperative Lungs: Respirations even and unlabored, symmetrical chest expansion Eyes: PERRL Musculoskeletal: Flexion and extension of lumbar [spine] somewhat guarded secondary to pain, [antalgic gait noted] positive leg raise right-sided Neurological: Speech clear, no gross sensory deficit Has patient had previous pain injection?: Yes Percent improvement in pain since last injection: 80% Conservative treatment options previously tried: Home exercise plan Length of treatment: Longer than 12 weeks Meds Home Medications and Allergies Home Medications ?Medication ?Instructions ?Recorded ?Confirmed ?Type montelukast 10 mg tablet 10 mg PO DAILY allergies 90 days 12/06/17 11/16/24 History ##90 omeprazole 40 mg capsule,delayed 40 mg PO DAILY GERD 90 days ##90 12/06/17 11/16/24 History release vitamin B comp with C no.4 150 mg 1 tab PO DIRECTED Supplement 03/21/18 11/16/24 History tablet (Super B Complex + C) aspirin 81 mg tablet,delayed 81 mg PO DAILY Heart disease 07/23/19 11/16/24 History release (Adult Aspirin Regimen) nabumetone 750 mg tablet 750 mg PO BID pain 12/11/19 11/16/24 History furosemide 40 mg tablet 40 mg PO DAILY Heart disease 12/30/20 11/16/24 History insulin lispro protamine-lispro 60 unit SQ BID 07/20/22 11/16/24 History 100 unit/mL (75-25) subcutaneous pen (Humalog Mix 75-25 KwikPen) loratadine 10 mg tablet 10 mg PO DAILY 07/20/22 11/16/24 History dapagliflozin propanediol 10 mg 10 mg PO DAILY 11/22/22 11/16/24 History tablet (Farxiga) sitagliptin phosphate 100 mg 100 mg PO DAILY 11/22/22 11/16/24 History tablet (Januvia) losartan 100 mg tablet See Rx Instructions .Route 12/19/22 11/16/24 Rx .COMPLEX #90 tabs famotidine 40 mg tablet (Pepcid) 40 mg PO DAILY #30 tabs 03/07/23 11/16/24 Rx blood-glucose transmitter (Dexcom #1 ea 04/19/23 11/16/24 Rx G6 Transmitter device) albuterol sulfate 90 mcg/actuation 1 - 2 puff inhalation Q6H PRN 05/28/23 11/16/24 Rx aerosol inhaler prior to activity 30 days #8.5 grams amlodipine 10 mg tablet 10 mg PO DAILY 05/28/23 11/16/24 History sucralfate 1 gram tablet 1 g PO BID 05/28/23 11/16/24 History levofloxacin 500 mg tablet 500 mg PO DAILY 5 days #5 tabs 10/07/23 11/16/24 Rx metoclopramide HCl 5 mg tablet 5 mg PO Q8HP PRN nausea #14 tabs 12/10/23 11/16/24 Rx (Reglan) spironolactone 25 mg tablet See Rx Instructions .Route 12/10/23 11/16/24 Rx .COMPLEX #90 tabs ranolazine 500 mg tablet,extended See Rx Instructions .Route 12/23/23 11/16/24 Rx release,12 hr .COMPLEX #60 tabs evolocumab 140 mg/mL subcutaneous See Rx Instructions .Route 07/24/24 11/16/24 Rx pen injector (Repatha SureJoseick) .COMPLEX #6 mL baclofen 10 mg tablet 10 mg PO TID #42 tabs 09/24/24 11/16/24 Rx New Prescriptions to Start Prescriptions: Allergies Allergy/AdvReac Type Severity Reaction Status Date / Time Penicillins (PENICILLINS) Allergy Severe SORES IN Verified 07/02/24 14:50 MOUTH shellfish derived Allergy Verified 07/02/24 14:50 TERE Inhibitors AdvReac Intermediate cough Verified 07/02/24 14:50 atorvastatin AdvReac Intermediate myalgia Verified 07/02/24 14:50 rosuvastatin (From Crestor) AdvReac Intermediate myalgia Verified 07/02/24 14:50 Assessment and Plan *Assessment and plan (1) Degenerative disc disease, lumbar: Status: Acute Category: Medical Code(s): M51.369 - Other intervertebral disc degeneration, lumbar region without mention of lumbar back pain or lower extremity pain (2) Lumbar radiculopathy: Status: Acute Category: Medical Code(s): M54.16 - Radiculopathy, lumbar region (3) Spinal stenosis of lumbar region: Status: Acute Category: Medical Code(s): M48.061 - Spinal stenosis, lumbar region without neurogenic claudication Plan Patient is experiencing worsening pain in his low back with numbness and tingling into his right extremity. Patient did have limited range of motion of his lumbar spine with a positive right leg raise. I did discuss with patient that I do believe they would benefit from a lumbar epidural steroid injection. Risk and benefits were discussed with patient and the patient would like to proceed forward with this plan of care. Patient is not on any blood thinners. Patient has tried and failed conservative therapy including continued at home stretching exercise for longer than 12 weeks between injections. Patient has not had any epidurals with our office. We will schedule the patient for an LESI L5-S1 under fluoroscopy. Patient was counseled that he did show multilevel disc bulge, facet arthropathy and severe bilateral foraminal narrowing at the L5-S1 level and his symptoms are consistent to follow the dermatome of S1. Patient agrees with this plan of care. Patient has been instructed to contact the clinic with any concerns before the next appointment. Dr. Zacarias has reviewed this note and agrees with this plan of care. This note was dictated using voice recognition software and make contain errors or omissions. All injections are used with Lidocaine, Bupivacaine and Depo Medrol. Occasionally urine drug screen is needed to verify patient's compliance with our office pain contract. This is ordered based off specific treatments related to chronic pain with the potential to abuse certain medications.
== END 2024-11-16 23:59 | disposition home or self-care (01) ==
PROVIDERS: PCP Family Medicine; Visit Provider Nurse Practitioner Family
DX: M51.16 Intervertebral disc disorders with radiculopathy, lumbar region (principal); M48.061 Spinal stenosis, lumbar region without neurogenic claudication; Z73.89 Other problems related to life management difficulty; Z79.899 Other long term (current) drug therapy
CPT/HCPCS: 99212; G0463

== ENCOUNTER 2024-11-30 12:13 | Outpatient (CLI) | payer OTHER, SELFPAY ==
[2024-11-30 13:40] VITALS: PULSE 84; PULSE 88
[2024-11-30] MEDS: ALBUTEROL 0.083% 2.5 MG/3 ML NEB IH (13:40)
== END 2024-11-30 23:59 | disposition home or self-care (01) ==
LOC: RT 12:13
PROVIDERS: PCP Family Medicine; Visit Provider Internal Medicine Pulmonary Disease
DX: J44.9 Chronic obstructive pulmonary disease, unspecified (principal)
CPT/HCPCS: 94060; 94618; 94640; 94726; 94729

== ENCOUNTER 2024-12-02 13:24 | Emergency (ER) | payer OTHER, SELFPAY ==
[2024-12-02 14:07] VITALS: BP 149/77; PULSE 88; RESP 20; TEMP 36.9; O2SAT 97; BMI 44.0
--- OUTSIDE RECORDS SUMMARY | 2024-12-02 14:13 | XMS_ITS | Data Portability ---
Author Organization [facility] ADMIN Address [address] [place] [id number] Assessment No assessment recorded. Plan of Treatment [...] By Organization Details Last Modified Time 04/17/2022 [id number] 1-Discussed findings with Mr. Garces and Dr. Janna Bravo MD. 2-F/u with Dr. Bravo this date. 3-F/u hearing testing as directed. [email or web address] Not available 04/17/2022 14:45:18 Reason for Referral None Reported. Procedures Surgical History Date Name Laterality Status Provider Name and Address Organization Details Recorded Time [facility] 13:36:39 myring[facility] and [facility] of tympanic ventilation [facility] 13:36:58 Imaging Results None recorded. 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 Functional Status None recorded. Mental Status None recorded. Family History Nothing Reported. Medical History Condition Response Allergies/Hayfever Y Heart Problems N Heart Conditions N Emphysema N Migraines N Thyroid Problems N Developmental Delay N Depression N Glaucoma N Anemia N Immune System Disorder N Anesthesia Complications N Heart Attack (ME) N Anxiety Disorder N Diabetes Y Bleeding Disorder N Arthritis N Hearing Loss N Tuberculosis N Acid Reflux (GERD) N Hyperlipidemia N Cancer N Stroke N Asthma N Sleep Disorder Y GERD/Reflux N Heart Disease N Fibromyalgia N Headaches N Hypertension Y Speech Delay N Kidney Disease N Past Encounters Encounter ID Performer Location Encounter Start Date Encounter Closed Date Diagnosis/Indication Diagnosis SNOMED-CT Code Diagnosis ICD10 Code Diagnosis Note [id number] Janna Bravo MD [facility] [place] [address] [place] [phone] 04/17/2022 13:05:50 04/17/2022 14:33:31 Tympanosclerosis 24127049 H74.01 Ventilatio n tube finding [id number] Z96.22 left tympanosto my tube is still [...] I will see him back as needed. [id number] LILA MADRID [facility] [place] [address] [place] [address] 04/17/2022 14:32:06 04/17/2022 14:45:44 Sensorineural hearing loss 70220530 H90.3 Health Concerns Section Related Observation LastModified by Organization Detai ls LastModified Time None Recorded Concern Status LastModified by Organization Details LastModified Time None Recorded Advance Directives Directive None Recorded Payers Insurance Date Sequence Insurance Name Policy Number Policy Arthur Covered Member ID Arthur Member ID Guarantor Name 04/14/2022 1 [facility] Massimo Garces [id number] Massimo Garces Notes Date Note Type Note Provider Name [...] ear. Janna Bravo MD [address], [place], [address], [facility] & [place] 04/19/2022 11:29:46 04/17/2022 text/html Mr. Garces was seen today for an audiologic evaluation due to long-standing middle ear dysfunction bilaterally per Dr. Janna Bravo MD. Mr. Garces has a long-standing (10-15 years) PE tube in the LE that appears in place and patent. Otoscopic inspection of the RE revealed tympanosclerosis, but was otherwise unremarkable. He denies hearing loss. LILA MADRID [address], [place], [address], [facility] & [place] 04/17/2022 14:45:37
[2024-12-02 14:14] LABS: Microscopic, Urine URINE MICROSCOPIC (MICROSCOPIC)
--- NOTE | 2024-12-02 14:26 | CT_ITS ---
FINAL REPORT TECHNIQUE: After the administration of oral and intravenous contrast, axial images were obtained through the abdomen and pelvis by computed tomography. The study was performed with techniques to keep radiation dose as low as reasonably achievable, (ALARA). Individual dose reduction techniques using automated exposure control or adjustment of mA and/or kV according to the patient's size were employed. CLINICAL HISTORY: Lower back pain, urinary retention COMPARISON: 12/08/2023 FINDINGS: Abdomen: The lung bases are clear. There is mild fatty infiltration of the liver. The gallbladder is absent. There is a left adrenal mass measuring 2.2 cm, probably due to an adenoma. This is stable since the prior exam. The right adrenal gland is unremarkable. The spleen, pancreas, and kidneys are unremarkable. The aorta is normal in caliber. There is no free fluid or adenopathy. Pelvis: The appendix is unremarkable. The urinary bladder is incompletely distended. There is no free fluid or adenopathy. There is vacuum disc phenomenon at L4-5 and L5-S1 with high-grade bilateral neuroforaminal narrowing at L5-S1. IMPRESSION: Mild fatty liver. Left adrenal mass, probably due to adenoma. Reviewed, Interpreted and Dictated by Blaine Manzano MD Transcribed by Cassie Hairston Authenticated and . [facility]
--- NOTE | 2024-12-02 14:29 | ED_ITS ---
<Statement entered by Tresa Canales DO - 12/02/24 21:36> I was consulted by the [facility], and we discussed the complexity of the problems being addressed. I approved the treatment and management plan for this patient's care in the emergency department, thus performing a substantive portion of the medical decision making. I was involved in the care of the patient at time of departure of the previous attending physician, Dr. Ortega. Tresa Canales DO Discharge Plan Disposition Patient Disposition: Home, Self-Care Condition: Good Prescriptions Prescriptions: No Action aspirin [Adult Aspirin Regimen] 81 mg tablet,delayed release (DR/EC) 81 mg PO DAILY Farxiga 10 mg tablet 10 mg PO DAILY Januvia 100 mg tablet 100 mg PO DAILY amantadine HCl 100 mg tablet 100 mg PO DAILY omeprazole 40 mg capsule,delayed release(DR/EC) 40 mg PO DAILY 90 Days Qty: 90 montelukast 10 mg tablet 10 mg PO DAILY 90 Days Qty: 90 Super B Complex + C 150 mg tablet 1 tab PO DIRECTED nabumetone 750 mg tablet 750 mg PO BID loratadine 10 mg tablet 10 mg PO DAILY Patient Comments: TAKE 1 TABLET BY MOUTH ONCE DAILY insulin lispro protamin-lispro [Humalog Mix 75-25 KwikPen] 100 unit/mL (75-25) insulin pen 60 unit SQ BID sucralfate 1 gram tablet 1 g PO BID albuterol sulfate 90 mcg/actuation HFA aerosol inhaler 1 - 2 puff inhalation Q6H PRN (Reason: prior to activity) 30 Days Qty: 8.5 2RF pregabalin 150 mg capsule 150 mg PO BID amlodipine [Norvasc] 5 mg tablet 5 mg PO DAILY Qty: 90 3RF losartan-hydrochlorothiazide 100-25 mg tablet 1 tab PO DAILY Qty: 90 3RF famotidine [Pepcid] 40 mg tablet 40 mg PO DAILY Qty: 30 3RF (DME) Dexcom G6 Transmitter Device See Rx Instructions .Route Qty: 1 0RF Rx Instructions: As directed spironolactone 25 mg tablet See Rx Instructions .ROUTE .COMPLEX Qty: 90 3RF Dose Instruction: TAKE 1 TABLET BY MOUTH TWICE DAILY FOR FLUID Rx Instructions: TAKE 1 TABLET BY MOUTH TWICE DAILY FOR FLUID ranolazine 500 mg tablet extended release 12 hr See Rx Instructions .ROUTE .COMPLEX Qty: 60 11RF Dose Instruction: Take 1 tablet by mouth twice daily Rx Instructions: Take 1 tablet by mouth twice daily Repatha SureClick 140 mg/mL pen injector See Rx Instructions .ROUTE .COMPLEX Qty: 6 4RF Dose Instruction: INJECT 140 MG UNDER THE SKIN EVERY 2 WEEKS Rx Instructions: INJECT 140 MG UNDER THE SKIN EVERY 2 WEEKS ropinirole 0.25 mg tablet See Rx Instructions .ROUTE .COMPLEX Qty: 30 0RF Dose Instruction: TAKE 1 TABLET BY MOUTH ONCE DAILY AT BEDTIME NIGHTLY, ADMINISTER 1-3 HOURS BEFORE BEDTIME Rx Instructions: TAKE 1 TABLET BY MOUTH ONCE DAILY AT BEDTIME NIGHTLY, ADMINISTER 1-3 HOURS BEFORE BEDTIME furosemide 40 MG tablet 40 mg PO DAILY metoclopramide HCl [Reglan] 5 mg tablet 5 mg PO Q8HP PRN (Reason: nausea) Qty: 14 0RF Referrals Follow up/Referrals: Lela Sánchez MD [Primary Care Provider] - See instructions Daniel Bender MD [Referring] - See instructions Clinical Impressions Clinical Impression: Decreased urination, Abdominal pain, Nausea vomiting and diarrhea, Chronic low back pain Instructions Patient Instructions: DI for Low Back Pain, DI for Abdominal Pain-Adult Print Language Print Language: Kosovan Discharge ED Provider: Tresa Canales General Adult HPI General Chief complaint: PAIN Stated complaint: cant urinate,pain R lower back area Time Seen by Provider: 12/02/24 14:13 Mode of Arrival: Ambulatory Source of Information: Patient Description of Symptoms (Recalled from ER Triage Doc. by RN): pt presents to ED c/o 6 lb weight gain, swelling in bilateral lower extremities, blister on one leg, lower back pain. pt denies SOA. History of Present Illness HPI narrative: 59-year-old male presents the emergency department accompanied by his spouse for a 48-hour history of weight gain, urinary retention/difficulty initiating urination, swelling in the bilateral lower extremities and describes on his left leg a blister , as well as lower back pain and lower abdominal pain, with an episode of nausea vomiting and diarrhea 2 nights ago. Was recently seen in his PCPs office yesterday, had urinalysis performed which revealed what sounds like hematuria, and glucosuria, no signs of infection according to patient's family at the bedside. Patient denies any fever or chills, chest pain, shortness of breath, but states this is baseline, denies any gross hematuria, hematochezia, melena hematemesis or hemoptysis, denies any saddle anesthesia, denies any urinary bladder or bowel dysfunction, has ongoing chronic lumbar spine pain at baseline but states this pain is different . The past medical history is consistent with coronary artery disease status post 2 stent placement and CABG, SIMBA with current CPAP use, type 2 diabetes, hypertension, ED, is any numbness or tingling, denies any radicular type symptomatology. Patient denies any alcohol tobacco or drug use, initial triage vitals unremarkable. Onset (ago): day(s) Related Data Home Medications ?Medication ?Instructions ?Recorded ?Confirmed montelukast 10 mg tablet 10 mg PO DAILY allergies 90 days 12/06/17 11/30/24 ##90 omeprazole 40 mg capsule,delayed 40 mg PO DAILY GERD 90 days ##90 12/06/17 11/30/24 release vitamin B comp with C no.4 150 mg 1 tab PO DIRECTED Supplement 03/21/18 11/30/24 tablet (Super B Complex + C) aspirin 81 mg tablet,delayed 81 mg PO DAILY Heart disease 07/23/19 11/30/24 release (Adult Aspirin Regimen) nabumetone 750 mg tablet 750 mg PO BID pain 12/11/19 11/30/24 furosemide 40 mg tablet 40 mg PO DAILY Heart disease 12/30/20 11/30/24 insulin lispro protamine-lispro 60 unit SQ BID 07/20/22 11/30/24 100 unit/mL (75-25) subcutaneous pen (Humalog Mix 75-25 KwikPen) loratadine 10 mg tablet 10 mg PO DAILY 07/20/22 11/30/24 dapagliflozin propanediol 10 mg 10 mg PO DAILY 11/22/22 11/30/24 tablet (Farxiga) sitagliptin phosphate 100 mg 100 mg PO DAILY 11/22/22 11/30/24 tablet (Januvia) sucralfate 1 gram tablet 1 g PO BID 05/28/23 11/30/24 amantadine HCl 100 mg tablet 100 mg PO DAILY 11/30/24 11/30/24 pregabalin 150 mg capsule 150 mg PO BID 11/30/24 11/30/24 Previous Rx's ?Medication ?Instructions ?Recorded famotidine 40 mg tablet (Pepcid) 40 mg PO DAILY #30 tabs 03/07/23 blood-glucose transmitter (Dexcom #1 ea 04/19/23 G6 Transmitter device) albuterol sulfate 90 mcg/actuation 1 - 2 puff inhalation Q6H PRN 05/28/23 aerosol inhaler prior to activity 30 days #8.5 grams metoclopramide HCl 5 mg tablet 5 mg PO Q8HP PRN nausea #14 tabs 12/10/23 (Reglan) spironolactone 25 mg tablet See Rx Instructions .Route 12/10/23 .COMPLEX #90 tabs ranolazine 500 mg tablet,extended See Rx Instructions .Route 12/23/23 release,12 hr .COMPLEX #60 tabs evolocumab 140 mg/mL subcutaneous See Rx Instructions .Route 07/24/24 pen injector (Repatha [employer]) .COMPLEX #6 mL amlodipine 5 mg tablet (Norvasc) 5 mg PO DAILY #90 tabs 11/30/24 losartan 100 1 tab PO DAILY #90 tabs 11/30/24 mg-hydrochlorothiazide 25 mg tablet ropinirole 0.25 mg tablet See Rx Instructions .Route 12/02/24 .COMPLEX #30 tabs Allergies Allergy/AdvReac Type Severity Reaction Status Date / Time Penicillins (PENICILLINS) Allergy Severe SORES IN Verified 11/30/24 14:31 MOUTH shellfish derived Allergy Verified 11/30/24 14:31 TERE Inhibitors AdvReac Intermediate cough Verified 11/30/24 14:31 atorvastatin AdvReac Intermediate myalgia Verified 11/30/24 14:31 rosuvastatin (From Crestor) AdvReac Intermediate myalgia Verified 11/30/24 14:31 [facility] Disclaimer: The information contained in this section may have been updated after the patient was seen, as this information can be updated by other users. Medical History Dyspnea on exertion Multiple lung nodules on CT History of asthma SIMBA (obstructive sleep apnea) Pulmonary nodules SOB (shortness of breath) on exertion Erectile dysfunction Typical angina Atypical chest pain Cardiomyopathy Chest pain SIMBA on CPAP On amiodarone therapy HLD (hyperlipidemia) CAD (coronary artery disease) Surgical History Hx of CABG S/P CABG x 2 S/P left atrial appendage ligation Family History Other Cancer Diabetes Heart attack Hypertension Stroke Social History (Updated 11/30/24 @ 14:32 by SHAI Gray) Smoking Status: Never smoker years smoked: 15 second hand exposure: Yes alcohol intake: never counseling provided: none substance use type: denies use current occupational status: other Travel in the last 8 weeks?: None household members: family housing: house current occupation: [employer] current occupational exposures/hazards: No caffeine: No Have you lived/traveled outside [place] in past 30 days?: No Contact w/someone who lives/traveled outside US past 30 days?: No Exposure to someone with infectious disease in past 14 days?: No Do you have a fever (greater than 100.4 F or 38 C)?: No Have you tested positive for COVID-19?: No Exposed to someone with COVID-19 in past 14 days?: No Do you have a sore throat?: No Do you have a cough?: No Do you have any weakness?: No Do you have any diarrhea?: No Are you experiencing any unusual bleeding?: No Do you have any muscle aches/pain?: No Do you have any abdominal pain?: No Are you experiencing loss of taste or smell?: No Other Medical History Have you received the Flu Vaccine for this season: Yes Have you received the Pneumonia Vaccine: Yes ROS Obtained: Yes All systems reviewed & no additional complaints except as documented Physical Exam General General appearance: alert and in no apparent distress Head Head exam: atraumatic and normocephalic Eye Eye exam: Present PERRL and EOMI ENT ENT exam: Present mucous membranes moist Neck Neck exam: Present normal inspection Chest Chest inspection: Present normal inspection and symmetric chest wall rise Respiratory Respiratory exam: Present normal lung sounds bilaterally; Absent respiratory distress Cardiovascular Cardiovascular exam: Present regular rate and normal rhythm Abdominal Exam Abdominal exam: Present soft, distention and tenderness; Absent rebound or rigidity Abdominal tenderness: Present suprapubic and mild Comment: There is some mild suprapubic tenderness to palpation to the abdomen, some mild abdominal distention, no rebound, no rigidity, Extremities Exam Extremities exam: Present normal inspection Back Exam Back exam: Present CVA tenderness (L); Absent CVA tenderness (R) Comment: Left CVA tenderness is present, negative right CVA tenderness Neurological Exam Neurological exam: Present alert and oriented X3 Psychiatric Psychiatric exam: Present normal affect Skin Skin exam: Present warm, dry and other (There is bilateral 1+ pitting edema of the lower extremities, with an area of vesicular formation on the left anterior tibial/medial malleolus region); Absent normal color or rash Medical Decision Making Medical Records Medical records reviewed: Yes I reviewed the patient's medical records. Screening: Per USPSTF and CDC recommendations, given the prevalence of disease in our region, it is our hospital?s policy to screen for HIV and viral Hepatitis for all patients aged 18 and over and those with ongoing risk factors. Bernardo Inquiry Pt receiving controlled substance: No Bernardo was queried for this patient: No Vital Signs: 12/02/24 14:07 Temperature 98.4 F Temperature Source Oral Pulse Rate [Right Radial] 88 Respiratory Rate 20 Blood Pressure [Right Arm] 149/77 H Blood Pressure Mean [Right Arm] 101 Blood Pressure Source [Right Arm] Automatic Cuff Blood Pressure Position [Right Arm] Sitting 02 Sat by Pulse Oximetry 97 Oxygen Delivery Method Room Air Lab Data Lab results reviewed: Yes I reviewed the patient's lab results. Lab Results 12/02/24 14:09: Urine Color Yellow, Urine Appearance Clear, Urine pH 6.0, Ur Specific Layton 1.025, Urine Protein Negative, Urine Glucose (UA) 3+, Urine Ketones Trace, Urine Blood Negative, Urine Nitrate Negative, Urine Bilirubin Negative, Urine Urobilinogen 0.2, Ur Leukocyte Esterase Negative, Urine RBC None, Urine WBC Occasional, Ur Squamous Epith Cells Occasional, Urine Bacteria None 12/02/24 14:30: WBC 7.8, RBC 5.05, Hgb 14.9, Hct 45.0, MCV 89.1, MCH 29.5, MCHC 33.1, RDW 13.9, Plt Count 205, MPV 10.4, Neut % (Auto) 75.1, Lymph % (Auto) 14.7, Lamb % (Auto) 6.6, Eos % (Auto) 2.3, Baso % (Auto) 0.5, Neut # (Auto) 5.8, Lymph # (Auto) 1.1, Lamb # (Auto) 0.5, Eos # (Auto) 0.2, Baso # (Auto) 0.0, Sodium 140, Potassium 3.7, Chloride 106, Carbon Dioxide 28, Anion Gap 9.7, BUN 28 H, Creatinine 0.90, Estimated Creat Clear 117, Estimated GFR 86, Est GFR ( Amer) 105, Glucose 157 H, Calcium 9.3, Total Bilirubin 0.9, AST 30, ALT 39, Alkaline Phosphatase 70, NT-Pro-B Natriuret Pep 236 H, Total Protein 7.1, Albumin 4.5, Globulin 2.6, Albumin/Globulin Ratio 1.7, Lipase 36, HCV Ab ISSA w/Rflx PCR Qn Negative, HIV Ag/Ab Combo Qual Negative 12/02/24 14:30 12/02/24 14:30 Orders (Tests/Meds): ED MEDICATIONS Generic Name Dose Route Start Last Admin Trade Name Freq PRN Reason Stop Dose Admin Sodium Chloride 10 ml 12/02/24 14:11 Sodium Chloride 0.9% 10ml Flush Syringe IV 01/01/25 14:10 NEEDED PRN Maintain IV Site Sodium Chloride 10 ml 12/02/24 15:08 12/02/24 15:08 Sodium Chloride 0.9% 10ml Syr (Rad Only) IV 01/01/25 15:07 10 ml NEEDED PRN Administration Maintain IV Site Discontinued Medications Generic Name Dose Route Start Last Admin Trade Name Freq PRN Reason Stop Dose Admin Iopamidol 75 ml 12/02/24 15:08 12/02/24 15:08 Iopamidol-370 (76%);100ml Bottle IV 12/02/24 15:09 75 ml ONCE ONE Administration Ketorolac Tromethamine 15 mg 12/02/24 14:29 12/02/24 14:44 Ketorolac 30mg/Ml Vial IV 12/02/24 14:30 15 mg ONCE ONE Administration ORDERS Category Date Time Status CT abdomen pelvis w con Stat Cat Scan 12/02/24 14:26 Completed XR chest portable Stat Exams 12/02/24 14:48 Completed Complete Blood Count Auto Diff Stat Lab 12/02/24 14:30 Completed Comprehensive Metabolic Panel Stat Lab 12/02/24 14:30 Completed HIV Combo Stat Lab 12/02/24 14:30 Completed Hepatitis C Ab Qual. W/ RFX Stat Lab 12/02/24 14:30 Completed Lactic Acid Stat Lab 12/02/24 14:26 Ordered Lipase Stat Lab 12/02/24 14:30 Completed NT Pro Brain Natriuretic Pep. Stat Lab 12/02/24 14:30 Completed Urinalysis and Microscopic Stat Lab 12/02/24 14:09 Completed Medical Decision Narrative: 59-year-old male presents the emergency department with multiple medical complaints, see HPI for detail past medical history, differential diagnose include but not limited to BPH, urinary outflow obstruction, acute UTI, acute pyelonephritis, constipation, bowel obstruction, appendicitis, pancreatitis, diverticulitis, nephrolithiasis, ureterolithiasis , HF exacerbation, pulmonary edema among others I discussed patient case with attending physician Obtain basic laboratory studies, lactic acid level, lipase level, proBNP, urinalysis, bladder scan and CT ab pelvis with contrast, will give 15 mg IV Toradol for pain. CBC unremarkable BUN is minimally elevated at 28, creatinine within normal limits, proBNP is minimally elevated at 236, lipase within normal limits. Urinalysis notable for 3+ glucose urea, trace ketonuria, negative hematuria, negative nitrites, negative leukocyte esterase, occasional WBCs, occasional squamous cells and no urine bacteria. I reviewed the patient's CT abdomen pelvis with contrast on the corresponding radiologic report, mild fatty liver, left adrenal mass and probably due to adenoma. Reviewed the patient's chest x-ray along the corresponding radiologic report no acute process. Bladder scan revealed less than 255 mL in urinary bladder. I saw on reexamination of the patient at 4:55 PM, I discussed all results with the patient and family the bedside, patient family agree with current treatment plan/discharge plan. Prior to discharge discussed this patient's case with the attending physician Dr. Canales. Patient will continue take all medications as prescribed, back pain is most likely from his lumbar spinal stenosis/degenerative disc disease, patient sees pain management for, patient could have passed a small kidney stone with the microscopic hematuria noted at outpatient facility on urinalysis yesterday, no signs of infection, proBNP is minimally elevated, no real signs of volume overload or CHF exacerbation at this time. Patient cleared to follow-up with his PCP, he was given strict ED return precautions. Patient and family once again voiced understanding. Patient is able to urinate, but is having some decreased urination, no acute urinary retention that require catheter management. Will also give patient urologist to follow-up with. Critical Care Critical Care Time Critical Care Time: No
[2024-12-02 14:30] LABS: Appearance,Urine CLEAR (Clear); Bilirubin,Urine Negative (Negative); Blood, Urine Negative (Negative); Color,Urine YELLOW (Yellow); Glucose,Urine (UA) 3+ (Negative); Ketones,Urine TRACE (Negative); Leukocyte Esterase,Urine Negative (Negative); Nitrate,Urine Negative (Negative); Protein,Urine Negative (Negative); Specific Gravity, Urine 1.025 (1.005-1.030); Urobilinogen,Urine 0.2 EU/dl (0.2)
[2024-12-02 14:37] LABS: Squamous Epithelial Cell,Urine Occasional #/hpf (0-5); WBC,Urine Occasional #/hpf (0-3)
[2024-12-02 14:43] LABS: Basophils % 0.5 % (0.1-2.0); Eosinophils # 0.2 Kmm3 (0.0-0.4); Eosinophils % 2.3 % (0.1-12.0); Hemoglobin 14.9 g/dL (14.1-18.0); Immature Granulocytes # 0.06 10^3uL; Immature Granulocytes % 0.8 %; Lymphocytes # 1.1 K/mm3 (0.7-4.5); Lymphocytes % 14.7 % (10-50); Mean Corpuscular HGB Conc 33.1 g/dL (31.8-35.4); Mean Corpuscular Hemoglobin 29.5 pg (27.0-31.2); Mean Corpuscular Volume 89.1 fl (80-94); Mean Platelet Volume 10.4 fl (7.4-10.4); Monocytes # 0.5 K/mm3 (0.1-1.0); Monocytes % 6.6 % (1.7-9.3); Neutrophils # 5.8 K/mm3 (1.8-7.8); Neutrophils % 75.1 % (37.0-80.0); Nucleated Red Blood Cells # 0 10^3/uL; Nucleated Red Blood Cells % 0 %; Platelet Count 205 K/mm3 (142-424); Red Blood Count 5.05 M/mm3 (4.60-6.20); Red Cell Distribution Width 13.9 % (11.5-17.5); Red Cell Distribution Width-SD 44.9 fL; White Blood Count 7.8 K/mm3 (4.8-10.8)
[2024-12-02] MEDS: KETOROLAC 30MG/ML VIAL 15 MG IV (14:44)
[2024-12-02 14:46] LABS: Alanine Aminotransferase 39 U/L (12-78); Albumin Level 4.5 g/dl (3.5-5.0); Albumin/Globulin Ratio 1.7 (1.1-1.8); Alkaline Phosphatase 70 U/L (38-126); Anion Gap 9.7 mEq/L (5-15); Aspartate Amino Transferase 30 U/L (17-59); Bilirubin,Total 0.9 mg/dl (0.2-1.3); Blood Urea Nitrogen 28 mg/dl (9-20); Calcium 9.3 mg/dl (8.4-10.2); Carbon Dioxide 28 mmol/L (22.0-30.0); Chloride 106 mmol/L (98-107); Creatinine Clearance Estimated 117 mL/min (50-200); Estimated Glomerular Filt Rate 86 ml/min (>60); GFR (African American) 105 ML/MIN (>60); Globulin 2.6 g/dL (1.3-3.2); Glucose 157 mg/dl (74-100); Lipase 36 U/L (23-300); Potassium 3.7 mmoL/L (3.5-5.1); Sodium 140 mmol/L (136-145); Total Protein,Serum 7.1 g/dl (6.3-8.2)
--- NOTE | 2024-12-02 14:48 | XR_ITS ---
FINAL REPORT CLINICAL HISTORY: SOA COMPARISON: 08/01/2024 FINDINGS: SINGLE VIEW CHEST Lordotic positioning was obtained. There is mild cardiomegaly. Patient is status post median sternotomy. The lungs are clear. There is no pneumothorax. IMPRESSION: No acute process. Reviewed, Interpreted and Dictated by Blaine Manzano MD Transcribed by Cassie Hairston Authenticated and [facility]
[2024-12-02 14:55] LABS: NT Pro Brain Natriuretic Pep. 236 pg/mL (0-125)
[2024-12-02] MEDS: IOPAMIDOL-370 (76%);100ML BOTTLE 75 ML IV (15:08)
[2024-12-02] MEDS: SODIUM CHLORIDE 0.9% 10ML SYR (RAD ONLY) 10 ML IV (15:08)
[2024-12-02 16:12] LABS: HIV Combo NEGATIVE (Negative)
[2024-12-02 16:19] LABS: Hepatitis C Ab Qual. W/ RFX NEGATIVE (Negative)
--- NOTE | 2024-12-02 16:58 | PC.NURSE ---
Bladder scan showed >255ml.
[2024-12-02 17:26] VITALS: BP 140/85; PULSE 78; RESP 20; TEMP 36.7; O2SAT 98
[2024-12-02 17:31] VITALS: BP 150/70; PULSE 95; RESP 16; TEMP 36.9; O2SAT 99
== END 2024-12-02 17:32 | disposition home or self-care (01) ==
PROVIDERS: Physician Assistant; Student in an Organized Health Care Education/Training Program; Emergency Provider Emergency Medicine; PCP Family Medicine
DX: R39.12 Poor urinary stream (principal); R10.0 Acute abdomen; R11.10 Vomiting, unspecified; M54.50 Low back pain, unspecified
CPT/HCPCS: 71045; 74177; 80053; 81001; 83690; 83880; 85025; 86803; 87389; 96374; 99285; J1885; Q9967

== ENCOUNTER 2024-12-08 10:29 | Day surgery (SDC) | payer OTHER, SELFPAY ==
[2024-12-08 10:40] VITALS: BP 148/75; PULSE 71; RESP 16; TEMP 36.8; O2SAT 97; BMI 43.3
--- NOTE | 2024-12-08 10:49 | P.PCN_ITS ---
Procedure Date: 12/08/24 Time: 10:40 Anesthesiologist:: Fernando Gordon CRNA Complications:: None Pre-procedure Diagnosis:: Degenerative disc lumbar spine multilevels. Lumbar radiculopathy. Disc bulge L4-5 L5-S1. Bilateral foraminal stenosis L5-S1. Post-procedure Diagnosis:: Same. Indications for Procedure:: Patient is a very pleasant 59-year-old male who comes our clinic today for lumbar epidural steroid injection at L5-S1 level. Patient describes low lumbar back pain as constant, dull, aching. Patient also reports bilateral hip and leg radicular symptoms at times. He rates his pain 7/10. Procedure Details:: Procedure: Lumbar epidural steroid injection under fluoroscopy Informed consent was obtained and the risks and benefits of the procedure were explained to the patient. The patient was taken to the procedure room and thomas nvasive monitors placed, including noninvasive blood pressure cuff and pulse oximeter. The back was viewed using C-arm Fluoroscopy and prepped using Chloraprep as a cleansing solution and the L5-S1 interspace was palpated. Skin and subcutaneous tissues were anesthetized using lidocaine 1.5% and a 25-gauge needle. After this, an 18-gauge Touhy epidural needle was placed into the L5-S1 interspace and advanced using fluoroscopic guidance and loss of resistance to air until the epidural space was encountered. After confirmation of needle placement in the epidural space, with dye, a solution containing normal saline, 3 mL and Depo-Medrol 80 mg were incrementally injected into the lumbar epidural space. The patient tolerated the procedure well with no complications. The patient was observed in the Pain Clinic and then discharged home neurologically intact. Plan and Disposition:: Patient was discharged without incident.
[2024-12-08 10:51] VITALS: BP 153/90; PULSE 77; RESP 18; O2SAT 96
[2024-12-08] MEDS: DEXAMETHASONE 10MG/ML 1ML VIAL 10 MG (10:51)
[2024-12-08 10:53] VITALS: BP 153/90; PULSE 77; RESP 18; O2SAT 96
[2024-12-08 11:00] VITALS: BP 121/71; PULSE 68; RESP 16; O2SAT 98
== END 2024-12-08 11:00 | disposition home or self-care (01) ==
PROVIDERS: PCP Family Medicine; Visit Provider Nurse Anesthetist, Certified Registered
DX: M51.16 Intervertebral disc disorders with radiculopathy, lumbar region (principal)
CPT/HCPCS: 62323; J1100

== ENCOUNTER 2025-02-18 12:38 | Outpatient (CLI) | payer OTHER, SELFPAY ==
--- NOTE | 2025-02-18 12:40 | XR_ITS ---
FINAL REPORT CLINICAL HISTORY: right knee pain COMPARISON: 08/29/2023 FINDINGS: RIGHT KNEE Three views were obtained. There is no fracture or dislocation. The joint spaces appear normal. There is chondrocalcinosis. No acute soft tissue abnormality is identified. IMPRESSION: No acute process. Reviewed, Interpreted and Dictated by Mere Gill MD Transcribed by Cassie Hairston Authenticated and [facility]
--- NOTE | 2025-02-18 12:40 | XR_ITS ---
FINAL REPORT CLINICAL HISTORY: left knee pain COMPARISON: 08/29/2023 FINDINGS: LEFT KNEE Three views were obtained. There is no fracture or dislocation. There is mild degenerative joint disease with chondrocalcinosis. There is very mild lateral patellar subluxation. Mild prepatellar soft tissue edema is identified. IMPRESSION: Very mild lateral patellar subluxation with prepatellar soft tissue edema. Reviewed, Interpreted and Dictated by Mere Gill MD Transcribed by Cassie Hairston Authenticated and [facility]
--- OUTSIDE RECORDS SUMMARY | 2025-02-18 12:40 | XMS_ITS | Encounter Summary ---
Author Organization [facility] Address [address] [place] [address] Care Team Providers Care Invoicing Machine Operator Name Role Phone Onel Sánchez MD Primary Care Provider [phone] Reason for Referral * Consultation (Routine) - Authorized Specialty Diagnoses / Procedures Referred By Contac t Referred To Contact Oral Surgery Diagnoses Right temporomandibular joint disorder, unspecified Eddie Coello MD [address] [place] [address] Phone: tel: fax: Tanja Marie, DDS [address] [address] Phone: tel: fax: Referral ID Status Reason Start Date Expiration Date Visits Requested Visits Authorized [id number] Authorized Specialty Services Required 09/10/2024 03/12/2026 1 1 * Consultation (Routine) - Closed Specialty Diagnoses / Procedures Referred By Contac t Referred To Contact Otolaryngology Diagnoses Otalgia of right ear Eddie Coello MD [address] [place] [address] Phone: tel: fax: [facility] [address] [place] [address] Phone: tel: fax: Referral ID Status Reason Start Date Expiration Date V isits Requested Visits Authorized [id number] Closed Specialty Services Required 09/10/2024 03/12/2026 1 1 Encounter Details Date Type Department Care Team (Latest Contact Info) Description 09/10/2024 Community [facility] [address] [place] [address] Eddie Coello MD [id number] [place] [address] Otalgia of right ear (Primary Dx); Right temporomandibular joint disorder, unspecified Social History Tobacco Use Types Packs/Day Years Used Date Smoking Tobacco: Former Alcohol Use Standard Drinks/Week Comments No 0 (1 standard drink = 0.6 oz pur e alcohol) Sex and Gender Information Value Date Recorded Sex Assigned at Not on file Legal Sex Male 6:27 PM EDT Gender Identity Not on file Sexual Orientation Not on file documented as of this encounter Plan of Treatment Scheduled Referrals Name Type Priority Associated Diagnoses Orde r Schedule Ambulatory Referral to ENT Outpatient Referral Routine Otalgia of right ear Expected: 09/10/2024 (Approximate), Expires: 03/10/2026 Ambulatory referral to Oral Maxillofacial Surgery Outpatient Referral Routine Right temporomandibular joint disorder, unspecified Expected: 09/10/2024 (Approximate), Expires: 03/10/2026 documented as of this encounter Visit Diagnoses Diagnosis Otalgia of right ear- Primary Right temporomandibular joint disorder, unspecified documented in this encounter Care Teams Invoicing Machine Operator Relationship Specialty Start Date End Date Onel Sánchez MD [address] [place] [address] [address] [place] [address] PCP - General 12/02/20 documented as of this encounter
--- OUTSIDE RECORDS SUMMARY | 2025-02-18 12:40 | XMS_ITS | Clinical Summary ---
Author Organization [facility] Address [address] [place] [address] Care Team Providers Care Lcac Radar Operator/Navigator Name Role Phone Onel Sánchez MD Primary Care Provider [phone] Allergies Active Allergy Reactions Criticality Noted Date Comments Penicillins Other - please docum ent in the comment field,Rash,Unknown - Patient states they do not know rxn details Low 05/28/2018 mouth ulcers Sores in mouth Shellfish Allergy Anaphylaxis,Swelling High 07/08/20 19 Medications amLODIPine (Norvasc) 10 MG tablet Take 1 tablet (10 mg) by mouth daily. Active Aspirin Buf,CaCarb-MgC arb-MgO, 81 MG tablet Take 1 tablet by mouth daily. 0 Active atorvastatin (Lipitor) 80 MG tablet Take 1 tablet (80 mg) by mouth nightly. 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 5 Active doxycycline (Vibramycin) 100 MG capsule take 1 capsule by mouth twice daily for 10 days 5 Active Repatha SureClick 140 MG/ML solution auto-injector INJECT 140 MG UNDER THE SKIN EVERY 2 WEEKS 5 Active famotidine (Pepcid) 20 MG tablet Take 1 tablet (20 mg) by mouth daily. as directed 9 Active HumaLOG MIX 75/25 KWIKPEN (75-25) 100 UNIT/ML injection pen INJECT 70 UNITS SUBCUTANEOUSLY TWICE DAILY 5 Active levoFLOXacin (Levaquin) 500 MG tablet take 1 tablet by mouth once daily for 5 days 4 Active metFORMIN (Glucophage) 1000 MG tablet Take 1 tablet (1,000 mg) by mouth 2 (two) times a day with meals. 9 Active montelukast (Singulair) 10 MG tablet Take 1 tablet (10 mg) by mouth every evening. Active Multiple Vitamins-Iron tablet 9 Active omeprazole (PriLOSEC) [address] capsule Take 1 capsule (40 mg) by mouth daily. 9 Active Januvia 100 MG tablet 5 Active spironolactone (Aldactone) 25 MG tablet TAKE 1 TABLET BY MOUTH TWICE DAILY FOR FLUID 4 Active Zinc 50 MG tablet Take 25 mg by mouth 1 (one) time each day. Active Active Problems Problem Noted Date Diagnosed Date Obesity (BMI 35.0-39.9 without comorbidity) 09/20 Severe obesity (BMI 35.0-39.9) with comorbidity 10/14/2024 Family History Medical History Relation Name Comments Heart attack Father Coronary artery disease Other 1 Diabetes Other 2 Hypertension Other 3 Other cancer Other 4 Relation Name Status Comments Father Other 1 Other 2 Other 3 Other 4 Social History Tobacco Use Types Packs/Day Years Used Date Smoking Tobacco: Former Smokeless Tobacco: Never Tobacco Cessation:Counseling Given: Not Answered Alcohol Use Standard Drinks/Week Comments No 0 (1 standard drink = 0.6 oz pur e alcohol) Sex and Gender Information Value Date Recorded Sex Assigned at Not on file Legal Sex Male 6:27 PM EDT Gender Identity Not on file Sexual Orientation Not on file Last Filed Vital Signs Vital Sign Reading Time Taken Comments Blood Pressure 148/76 10/14/2024 10:51 AM EDT Pulse 84 10/14/2024 10:51 AM EDT Temperature 36.9 C (98.4 F) 07/02/2019 1:08 PM EST Respiratory Rate 16 07/02/2019 1:08 PM EST Oxygen Saturation - - Inhaled Oxygen Concentration - - Weight 149 kg (329 lb) 10/14/2024 10:51 AM EDT Height 200.7 cm (6' 7 ) 10/14/2024 10:51 AM EDT Body Mass Index 37.06 10/14/2024 10:51 AM EDT Plan of Treatment Health Maintenance Due Date Last Done Comments [facility]-Depression Screening 1965 [facility]-HIV Screening 1965 [facility]-Hepatitis C Screening 1965 [facility]-Infant/Child/Adol SDOH Screenings 1965 [facility]- SDOH Screenings 09/24/1983 [facility]-Adult SDOH Screenings 09/24/1983 [facility]-Hepatitis B Vaccines (1 of 3 - 19+ 3-dose series) 1984 CT Colonography 2010 Colonoscopy 2010 FIT 2010 FOBT 2010 Sigmoidoscopy 2010 [facility]-Pneumococcal Vaccine: 50 + Years (1 of 1 - PCV) 09/24/2015 [facility]-Zoster Vaccines (1 of 2) 09/24/2015 [id number] Vaccine ( - season) 2024 05/24/2021, 11/04/2020, 10/04/2020 [facility]-Influenza Vaccine (#1) 03/22/202503/25, 05/20/2023, 04/13/2016 FIT-DNA 11/11/2026 11/12/2023 [facility]-Colorectal Cancer Screening 11/11/2026 [facility]-DTaP,Tdap,and Td Vaccine s (2 - Td or Tdap) 07/04/2033 07/04/2023 [facility]-Obesity Intervention Completed 025, 10/14/2024, 09/15/2024 HPV Vaccines Aged Out No longer eligi ble based on patient's age to complete this topic [facility]-HIB Vaccines Aged Out No longer e ligible based on patient's age to complete this topic [facility]-Hepatitis A Vaccines Aged Out No longer eligible based on patient's age to complete this topic [facility]-IPV Vaccines Aged Out No longer e ligible based on patient's age to complete this topic [facility]-Rotavirus Vaccines Aged Out No lo nger eligible based on patient's age to complete this topic Insurance [employer]ETNA [facility] MEDICAID Care Teams Lcac Radar Operator/Navigator Relationship Specialty Start Date End Date Onel Sánchez MD [address] [place] [address] #1 #1 KEILY Carmen [id number] PCP - General 12/02/20
--- OUTSIDE RECORDS SUMMARY | 2025-02-18 12:40 | XMS_ITS | Clinical Summary ---
Author Organization [facility] Address [address] [place] [address] Care Team Providers Care Territory Sales Manager Name Role Phone Onel Sánchez MD Primary Care Provider [phone] Allergies Active Allergy Reactions Criticality Noted Date Comments Penicillins Other (See Comments) ,GI Intolerance 05/28/2018 Sores in mouth Shellfish Allergy Anaphylaxis,Swelling High Medications montelukast (SINGULAIR) 10 MG tablet Take 10 mg by mouth Every Night. 04/28/2018 Active omeprazole (priLOSEC) 40 MG capsule Take 40 mg by mouth Daily. 05/22/2018 Active GLYXAMBI 25-5 MG tablet Take 1 tablet by mouth Daily. 05/22/2018 Active LOSARTAN POTASSIUM-HCTZ PO Take 1 tablet by mouth Daily. 25/12.5 04/04/2018 Active metFORMIN (GLUCOPHAGE) 1000 MG tablet Take 1,000 mg by mouth 2 (Two) Times a Day With Meals. 02/28/2018 Active nabumetone (RELAFEN) 750 MG tablet Take 750 mg by mouth 2 (Two) Times a Day. 02/28/2018 Active WELCHOL 625 MG tablet Take 1,875 mg by mouth 2 (Two) Times a Day With Meals. 03/19/2018 Active bisoprolol (ZEBeta) 5 MG tablet Take 10 mg by mouth Every Night. 04/28/2018 Active furosemide (LASIX) 40 MG tablet Take 40 mg by mouth Daily. 05/11/2018 Active spironolactone (ALDACTONE) 50 MG tablet Take 50 mg by mouth Daily. 05/11/2018 Active BRILINTA 90 MG tablet tablet Take 90 mg by mouth 2 (Two) Times a Day. 05/20/2018 Active B Complex-C (SUPER B COMPLEX PO) Take 1 tablet by mouth Daily. Active Zinc 50 MG tablet Take 25 mg by mouth Daily. Active amLODIPine (NORVASC) 10 MG tablet Take 10 mg by mouth Daily. Active apixaban (ELIQUIS) 5 MG tablet tablet Take 1 tablet by mouth Every 12 (Twelve) Hours. 60 tablet 11 10/23/2018 Active Active Problems Problem Noted Date Diagnosed Date Paroxysmal atrial fibrillation 05/28/2018 Coronary artery disease invo lving [place] coronary artery of [place] heart without angina pectoris 05/28/2018 Essential hypertension 05/28/2018 Hyperlipidemia 05/28/2018 Diabetes mellitus type II, controlled 05/28/2018 SIMBA on CPAP 05/28/2018 Typical atrial flutter 05/28/2018 Family History Medical History Relation Name Comments No Known Problems Brother 1 No Known Problems Brother 2 Heart attack Father Gamaliel Garces Stroke Father Gamaliel Garces Heart attack Maternal Grandfather Other Maternal Grandmother brain t umor Anemia Mother Sultana Garces Arrhythmia Mother Sultana Garces Heart attack Mother Sultana Garces Hypertension Mother Sultana Garces Thyroid cancer Mother Sultana Garces Heart attack Paternal Grandfather No Known Problems Sister Relation Name Status Comments Brother 1 Alive Brother 2 Alive Father Gamaliel Garces Alive Maternal Grandfather Maternal Grandmother Mother Sultana Garces Alive Paternal Grandfather Sister Alive Social History Tobacco Use Types Packs/Day Years Used Date Smoking Tobacco: Former Cigarettes 1 12 1 07/28/1975 - 05/28/1988 Smokeless Tobacco: Never Tobacco Cessation:Counseling Given: Yes Alcohol Use Standard Drinks/Week Comments No 0 (1 standard drink = 0.6 oz pur e alcohol) Humiliation, Afraid, Rape, and Kick questionnair e Answer Date Recorded Fear of Current or Ex-Partner No Emotionally Abused No 07/24/2018 Physically Abused No 07/24/2018 Sexually Abused No 07/24/2018 Social Connection and Isolat ion Panel [NHANES] Answer Date Recorded Frequency of Communication w ith Friends and Family More than three times a week 07/24/2018 Frequency of Social Gatherin gs with Friends and Family Twice a week 07/24/2018 Attends [employer] Services Never 07/24 Active Member of Clubs or Organizations No 07/24/2018 Attends Club or Organization Meetings Never 07/24/2018 Marital Status 07/24/2018 Overall Financial Resource Strain (CARDIA) Answe r Date Recorded Difficulty of Paying Living Expenses Not very mcgee rd 07/24/2018 [facility] [place] [facility] - Occupational Stress Questionnaire Answer Date Recorded Feeling of Stress Not at all 07/24/2018 Hunger Vital Sign Answer Date Recorded Worried About Running Out of Food in the Last Ye ar Never true 07/24/2018 Ran Out of Food in the Last Year Never true 07/24/2018 PRAPARE - Transportation Answer Date Re corded Lack of Transportation (Medical) No 07/24/2018 Lack of Transportation (Non-Medical) No 07/24/2018 Abuse Screen Answer Date Recorded Unsafe at Home or Work/School Not on file Feels Threatened by Someone? Not on file 06/2023 Does Anyone Keep You from Co ntacting Others or Doint Things Outside the Home? Not on file 05/02/2023 Physical Sign of Abuse Present Not on file 1 Housing Stability Answer Date Recorded Current Living Arrangements Not on file 04/21 Potentially Unsafe Housing Conditions Not on ricardo e 05/02/2023 Family and Community Support Answer Jona e Recorded Help with Day-to-Day Activities Not on file 05/02/2023 Lonely or Isolated Not on file 05/02/2023 Employment Answer Date Recorded Do you want help finding or keeping work or a sindy b? Not on file 05/02/2023 Disabilities Answer Date Recorded Concentrating, Remembering, or Making Decisions Difficulty Not on file 05/02/2023 Doing Errands Independently Difficulty Not on fi le 05/02/2023 Education Answer Date Recorded Help with school or training? Not on file Preferred Language Not on file 05/02/2023 Sex and Gender Information Value Date Recorded Sex Assigned at Not on file Legal Sex Male 2:43 PM EDT Gender Identity Not on file Sexual Orientation Not on file Last Filed Vital Signs Vital Sign Reading Time Taken Comments Blood Pressure 128/72 06/03/2019 12:45 PM EST Pulse 66 06/03/2019 12:45 PM EST Temperature 36.4 C (97.6 F) 07/24/2018 10:17 AM EST Respiratory Rate 20 07/24/2018 10:17 AM EST Oxygen Saturation 95% 06/03/2019 12:45 PM EST Inhaled Oxygen Concentration - - Weight 163 kg (360 lb) 06/03/2019 12:45 PM EST Height 200.7 cm (6' 7 ) 06/03/2019 12:45 PM EST Body Mass Index 40.56 06/03/2019 12:45 PM EST Plan of Treatment Health Maintenance Due Date Last Done Comments LIPID PANEL 1965 TDAP/TD VACCINES (1 - Tdap) 1984 COLOGUARD 2010 COLON CANCER SCREENING 5 YEAR SIGMOIDOSCOPY 2010 COLONOSCOPY 2010 [address] CANCER SCREENING 2010 CT COLONOGRAPHY 2010 FECAL OCCULT BLOOD TEST 2010 FIT Testing (1 year) 2010 Pneumococcal Vaccine 50+ (1 of 1 - PCV) 09/24/2015 ZOSTER VACCINE (1 of 2) 09/24/2015 ANNUAL PHYSICAL 05/26/2018 HEPATITIS C SCREENING 05/26/2018 COVID-19 Vaccine ( season) 2024 INFLUENZA VACCINE 04/21/2025 HEMOGLOBIN A1C Discontinued 07/17/2018 Medical Devices Implanted Type 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 Device Identifier Shelf Expiration Date Model / Serial / Lot Stent Description:X2 Procedures Procedure Name Priority Date/Time Associated Diagnosis Comments HEMOGLOBIN A1C STAT 07/17/2018 8:01 AM EST from Last 3 Months or Most Recently Relevant to Health Maintenance Results * (ABNORMAL) Hemoglobin A1c (07/17/2018 8:01 AM EST) Hemoglobin A1C 8.20(H) 4.80 - 5.60 % 07/17/2018 9:04 AM EST [facility] Blood Venipuncture / Unknown 07/17/2018 8:01 AM EST 07/17/2018 8:12 AM EST Narrative [facility] - 07/17/2018 9:04 AM EST The [place] [employer] recommends maintenance of Hemoglobin A1C at 7.0% or lower. Goals for Hemoglobin A1C reduction may need to be modified if hypoglycemia is a problem. us Tanisha [facility] BLOOD ORDERABLES Final Res ult [facility]
[address] [place] [address], from Last 3 Months or Most Recently Relevant to Health Maintenance Insurance Care Teams Territory Sales Manager Relationship Specialty Start Date End Date Onel Sánchez MD [address] [place] [address] PCP - General Family Medicine 05/21/18
== END 2025-02-18 23:59 | disposition home or self-care (01) ==
LOC: RAD 12:38
PROVIDERS: PCP Family Medicine; Visit Provider Physician Assistant
DX: S83.002A Unspecified subluxation of left patella, initial encounter (principal); M79.89 Other specified soft tissue disorders; M25.561 Pain in right knee
CPT/HCPCS: 73562